=== PATIENT | female | born 1940 | race Caucasian/White ===

== ENCOUNTER 2017-04-22 16:40 | Emergency (ER) | payer MEDICARE, MEDICAID, OTHER ==
[2017-04-22 17:06] VITALS: BP 107/88
--- NOTE | 2017-04-22 17:13 | EDM.PDOC ---
ED HPI GENERAL MEDICAL PROBLEM - General Chief Complaint: General Stated Complaint: BLISTERS ON SHOULDER AND SLEEPING ALOT Time Seen by Provider: 04/22/17 17:13 - History of Present Illness INITIAL COMMENTS - FREE TEXT/NARRATIVE: 76-year-old female brought into the emergency room by her son just not doing too well. The patient fell out of bed this morning landing on her right shoulder. She's developed some redness around the shoulder and has a little bit of blistering in this area. The patient has had other problems this last week she just has not been herself she's been more lethargic over the last couple of days. Patient has advanced Alzheimer's lives at home with her son. The son states that the patient just isn't herself. She was seen in the clinic yesterday after developing a rash on her left shoulder this was thought to be due to her drooling more on the shoulder. Past medical history significant for dense Alzheimer's this is all she is taking medication for. Treatments NIGHT CUSTODIAN: Reports: Other (see below) Other Treatments NIGHT CUSTODIAN: seen by [facility] right shoulder Pain Score (Numeric/FACES): 3 - Related Data Allergies Allergy/AdvReac Type Severity Reaction Status Date / Time No Known Allergies Allergy Verified 04/22/17 17:06 Home Meds: Home Meds Ciprofloxacin [Ciprofloxacin HCl] 250 mg PO BID #14 tablet 04/22/17 [Rx] Memantine HCl/Donepezil HCl [Namzaric 28 mg-10 mg Capsule] 1 each PO DAILY 04/22 [History] risperiDONE [Risperdal] 0.5 mg PO 1800 04/22/17 [History] ED ROS GENERAL - Review of Systems Review Of Systems: See Below Constitutional: Denies: Fever, Chills HEENT: Reports: No Symptoms Respiratory: Reports: No Symptoms. Denies: Shortness of Breath, Cough, Sputum Cardiovascular: Reports: No Symptoms GI/Abdominal: Reports: No Symptoms : Reports: No Symptoms ED EXAM, GENERAL - Physical Exam Exam: See Below Exam Limited By: Other (Significant dementia) General Appearance: No Apparent Distress, Other (She does wake up during exam) Eye Exam: Bilateral Eye: EOMI, Normal Inspection Ears: Normal External Exam, Normal Canal, Normal TMs Nose: Normal Inspection, Normal Mucosa Throat/Mouth: Normal Inspection, Normal Lips, Normal Gums, Normal Oropharynx Head: Atraumatic, Normocephalic Neck: Normal Inspection, Supple, Non-Tender. No: Lymphadenopathy (L), Lymphadenopathy (R) Respiratory/Chest: No Respiratory Distress, Lungs Clear, Normal Breath Sounds Cardiovascular: Regular Rate, Rhythm, No Edema, No Murmur GI/Abdominal: Normal Bowel Sounds, Soft, Non-Tender Back Exam: Normal Inspection Extremities: Normal Inspection, No Pedal Edema Course - Vital Signs Last Recorded V/S: Last Vital Signs Temp 36.6 C 04/22/17 16:55 Pulse 84 04/22/17 16:55 Resp 18 04/22/17 16:55 BP 107/88 04/22/17 16:55 Pulse Ox 98 04/22/17 16:55 - Orders/Labs/Meds Orders: Active Orders 24 hr Category Date Time Status EKG Documentation Completion [RC] STAT Care 04/22/17 17:55 Active Chest 2V [CR] Stat Exams 04/22/17 17:56 Taken Head wo Cont [CT] Stat Exams 04/22/17 17:56 Taken CULTURE URINE [RM] Stat Lab 04/22/17 19:37 Uncollected Labs: Laboratory Tests 04/22/17 04/22/17 04/22/17 Range/Units 18:18 18:18 18:34 WBC 10.48 H (3.98-10.04) K/mm3 RBC 4.58 (3.98-5.22) M/mm3 Hgb 12.8 (11.2-15.7) gm/L Hct 39.5 (34.1-44.9) % MCV 86.2 (79.4-94.8) fl MCH 27.9 (25.6-32.2) pg MCHC 32.4 (32.2-35.5) g/dl RDW Std Deviation 44.1 (36.4-46.3) fL Plt Count 227 (182-369) K/mm3 MPV 10.5 (9.4-12.3) fl Neutrophils % (Manual) 78 H (40-60) % Band Neutrophils % 0 (0-10) % Lymphocytes % (Manual) 14 L (20-40) % Atypical Lymphs % 0 % Monocytes % (Manual) 7 (2-10) % Eosinophils % (Manual) 1 (0.7-5.8) % Basophils % (Manual) 0 L (0.1-1.2) Platelet Estimate Adequate RBC Morph Comment Normal Sodium 140 (136-145) mEq/L Potassium 4.6 (3.5-5.1) mEq/L Chloride 105 (98-107) mEq/L Carbon Dioxide 30 (21-32) mEq/L Anion Gap 9.6 (5-15) BUN 33 H (7-18) mg/dL Creatinine 1.2 H (0.55-1.02) mg/dL Est Cr Clr Drug Dosing 31.54 mL/min Estimated GFR (MDRD) 44 (>60) mL/min BUN/Creatinine Ratio 27.5 H (14-18) Glucose 107 (83-115) mg/dL Calcium 9.9 (8.5-10.1) mg/dL Total Bilirubin 0.4 (0.2-1.0) mg/dL AST 32 (15-37) U/L ALT 20 (14-59) U/L Alkaline Phosphatase 68 (46-116) U/L Total Protein 6.4 (6.4-8.2) g/dl Albumin 3.2 L (3.4-5.0) g/dl Globulin 3.2 gm/dL Albumin/Globulin Ratio 1.0 (1-2) Urine Color Yellow (Yellow) Urine Appearance Slt cloudy H (Clear) Urine pH 6.5 (5.0-8.0) Ur Specific [place] 1.020 (1.005-1.030) Urine Protein Negative (Negative) Urine Glucose (UA) Negative (Negative) Urine Ketones Negative (Negative) Urine Occult Blood 1+ H (Negative) Urine Nitrite Positive H (Negative) Urine Bilirubin Negative (Negative) Urine Urobilinogen 0.2 (0.2-1.0) Ur Leukocyte Esterase 2+ H (Negative) Urine RBC 5-10 H (0-5) /hpf Urine WBC 40-50 H (0-5) /hpf Ur Epithelial Cells 5-10 H (0-5) /hpf Urine Bacteria Many H (FEW) /hpf Urine Mucus Few (FEW) /hpf - Re-Assessments/Exams Free Text/Narrative Re-Assessment/Exam: 04/22/17 20:25 Labs nondiagnostic urinalysis is strongly suggestive of urinary tract infection chest x-ray shows some basilar densities do not appear to be infiltrates. Head CT shows no acute changes she has a 1.4 cm densely calcified lesion thought to be a small calcified meningioma this is been there for quite some time according to the patient's son who has pictures of this on his I pad. Long discussion with the patient's son who would rather treat this down an outpatient basis. This is a reasonable approach the patient will receive a gram of Rocephin at this point and then will start Cipro 250 mg twice daily adjusted with her renal insufficiency starting tomorrow night for 6 days. Her namzaric will be held while taking the Cipro Departure - Departure Time of Disposition: : Disposition: Home, Self-Care 01 Clinical Impression: Urinary tract infection - Discharge Information Prescriptions: Ciprofloxacin [Ciprofloxacin HCl] 250 mg PO BID #14 tablet Forms: ED Department Discharge Additional Instructions: Return to the emergency room with any questions problems worsening symptoms. Follow-up in the clinic on Monday or Monday for recheck. Patient has been started on ciprofloxacin this is an antibiotic take it twice daily until gone starting Monday evening. Stop the Namzaric while taking the Cipro. - My Orders Last 24 Hours: My Active Orders 04/22/17 17:55 EKG Documentation Completion [RC] STAT 04/22/17 17:56 Chest 2V [CR] Stat Head wo Cont [CT] Stat 04/22/17 19:37 CULTURE URINE [RM] Stat - Assessment/Plan Last 24 Hours: My Active Orders 04/22/17 17:55 EKG Documentation Completion [RC] STAT 04/22/17 17:56 Chest 2V [CR] Stat Head wo Cont [CT] Stat 04/22/17 19:37 CULTURE URINE [RM] Stat
[2017-04-22] MEDS ORDERED: cefTRIAXone 1,000 MG VIAL IVPUSH SCH (20:15)
[2017-04-22] MEDS ORDERED: cefTRIAXone 1 GM in Sodium Chloride 0.9% 100 ML IV ONE (20:18)
--- NOTE | 2017-04-24 08:15 | CT ---
Head CT Technique: Multiple axial sections through the brain were obtained. Intravenous contrast was not utilized. Comparison: No previous intracranial imaging is available. Findings: Ventricles along with basal cisterns and sulci over the convexities are moderately prominent. Well calcified area is seen in an extra-axial location within the right frontal region compatible with old calcified meningioma. Mild diminished density is noted within the periventricular white matter compatible with small vessel ischemic demyelination change. Old lacunar infarcts are seen within the basal ganglia. No other abnormal parenchymal densities are seen. No evidence of intracranial hemorrhage. No midline shift or mass effect is seen. Atherosclerotic calcification is seen within carotid siphon and vertebral vessels. No acute calvarial abnormality is seen. Impression: 1. Senescent change as described above. 2. Old calcified meningioma within the right frontal region which is incidental. 3. No acute intracranial abnormality is identified. Diagnostic code #2 I agree with preliminary report issued by [facility] ([facility] report finalized on 04/22/17, 8:25 PM Central Time)
--- NOTE | 2017-04-24 08:15 | CR ---
Chest: Two views of the chest were obtained. Comparison: No previous study. Heart size is normal. Tortuous thoracic aorta is seen. Lungs are clear without acute infiltrates. Bony structures show mild degenerative change within the mid and lower thoracic spine. Impression: 1. Nothing acute is identified on two-view chest x-ray. Diagnostic code #2
== END 2017-04-22 21:10 | disposition home or self-care (01) ==
LOC: JD.ED 16:40
DX: N39.0 Urinary tract infection, site not specified (principal); G30.9 Alzheimer's disease, unspecified; F02.80 Dementia in other diseases classified elsewhere, unspecified severity, without behavioral disturbance, psychotic disturbance, mood disturbance, and anxiety
CPT/HCPCS: 36415; 70450; 71020; 80053; 81001; 85025; 87086; 87088; 87186; 93005; 96365; 99284; J0696; J7030

== ENCOUNTER 2017-05-08 13:14 | Emergency (ER) | payer MEDICARE, OTHER, MEDICAID ==
[2017-05-08 13:30] VITALS: BP 137/82
[2017-05-08] MEDS ORDERED: Sodium Chloride 0.9% 10 ML Syringe FLUSH PRN (13:39)
[2017-05-08] MEDS ORDERED: Sodium Chloride 0.9% 1,000 ML IV SCH (13:45)
--- NOTE | 2017-05-08 14:38 | CT ---
Head CT Technique: Multiple axial sections through the brain were obtained. Intravenous contrast was not utilized. Comparison: Previous head CT study of 04/22/17. Findings: Calcified lesion is seen within the right frontal region likely representing old calcified meningioma. Ventricles along with basal cisterns and sulci over the convexities are moderately prominent. Mild diminished density is noted within the periventricular white matter compatible with small vessel ischemic demyelination change. Several old lacunar infarcts are noted within the basal ganglia. No other abnormal parenchymal densities are seen. No evidence of intracranial hemorrhage. No midline shift or mass effect is seen. Visualized paranasal sinuses are clear. Mild atherosclerotic change is seen within the carotid siphon. No acute calvarial abnormality is identified. Impression: 1. Senescent change as described above. 2. Old calcified meningioma which is incidental. 3. No acute intracranial abnormality is identified. No significant change is seen from prior head CT exam. Diagnostic code #2
--- NOTE | 2017-05-08 15:14 | CR ---
Chest: AP view of the chest was obtained. Comparison: Previous chest x-ray of 04/22/17. Heart size appears within normal limits for AP technique. Tortuous thoracic aorta is seen. Lungs are clear with no acute infiltrates. Bony structures are osteopenic. Scoliosis is seen most of which appears to be positional. Impression: 1. Incidental findings. Nothing acute is appreciated on AP chest x-ray. Diagnostic code #2
--- NOTE | 2017-05-08 16:50 | EDM.PDOC ---
ED HPI GENERAL MEDICAL PROBLEM - General Chief Complaint: Genitourinary Problem Stated Complaint: POSS UTI/ALSO RESPIRATORY ISSUES Time Seen by Provider: 05/08/17 13:26 Source of Information: Reports: Family History Limitations: Reports: Altered Mental Status - History of Present Illness INITIAL COMMENTS - FREE TEXT/NARRATIVE: The patient has end stage alzheimers and she is cared for by her son. He had her here about 2 weeks ago and she had a UTI. She was on an antibiotic and she got better. For the past few days she has been less responsive and she has a productive cough. She has a low grade temp. She has decreased intake. She does not talk much and when she does she is confused. She cannot give me a history. Onset: Gradual Duration: Day(s): Severity: Mild Improves with: Reports: None Worsens with: Reports: None Associated Symptoms: Reports: Cough, cough w sputum. Denies: Fever/Chills, Nausea/Vomiting, Shortness of Breath - Related Data Allergies Allergy/AdvReac Type Severity Reaction Status Date / Time No Known Allergies Allergy Verified 05/08/17 13:30 Home Meds: Home Meds Memantine HCl/Donepezil HCl [Namzaric 28 mg-10 mg Capsule] 1 each PO DAILY 04/22 [History] risperiDONE [Risperdal] 0.5 mg PO 1800 04/22/17 [History] Azithromycin [IJD: Azithromycin] 250 mg PO DAILY #6 tab 05/08/17 [Rx] Past Medical History HEENT History: Reports: Other (See Below) Other HEENT History: unable to eat solid foods, drooling Gastrointestinal History: Reports: Chronic Constipation, Fecal Incontinence Genitourinary History: Reports: Urinary Incontinence Musculoskeletal History: Reports: Other (See Below) Other Musculoskeletal History: unable to walk, is w/c dependent 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 Psychiatric History: Reports: Alzheimers Disease Oncologic (Cancer) History: Reports: Other (See Below) 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" Dermatologic History: Reports: Other (See Below) Other Dermatologic History: blisters to right shoulder, eczema type rash to left shoulder Social & Family History - Family History Family Medical History: Noncontributory - Tobacco Use Smoking Status *Q: Former Smoker Used Tobacco, but Quit: Yes Month Tobacco Last Used: years ago - Caffeine Use Caffeine Use: Reports: None - Recreational Drug Use Recreational Drug Use: No ED ROS GENERAL - Review of Systems Review Of Systems: Unable To Obtain ED EXAM, GI/ABD - Physical Exam Exam: See Below Exam Limited By: No Limitations General Appearance: Other (Sleepy) Eyes: Bilateral: EOMI Ears: Normal External Exam Nose: Normal Inspection Head: Atraumatic, Normocephalic Neck: Normal Inspection Respiratory/Chest: No Respiratory Distress, Lungs Clear, Normal Breath Sounds Cardiovascular: Regular Rate, Rhythm, No Edema, No Murmur GI/Abdominal Exam: Soft, Non-Tender, No Organomegaly, No Mass Back Exam: Normal Inspection Extremities: Normal Inspection Neurological: Other (Sleepy. She will talk at times but she makes no sense.) Course - Vital Signs Last Recorded V/S: Last Vital Signs Temp 98.7 F 05/08/17 13:26 Pulse 83 05/08/17 13:26 Resp 18 05/08/17 13:26 BP 137/82 05/08/17 13:26 Pulse Ox 93 L 05/08/17 13:26 - Orders/Labs/Meds Orders: Active Orders 24 hr Category Date Time Status Cardiac Monitoring [RC] . DIRECTED Care 05/08/17 13:39 Active Peripheral IV Care [RC] . DIRECTED Care 05/08/17 13:40 Active Sodium Chloride 0.9% [Normal Saline] 1,000 ml Med 05/08/17 13:45 Active IV ASDIRECTED Sodium Chloride 0.9% [Saline Flush] Med 05/08/17 13:39 Active 10 ml FLUSH ASDIRECTED PRN Peripheral IV Insertion Adult [OM.PC] Stat Oth 05/08/17 13:39 Ordered Medication Orders Sodium Chloride (Normal Saline) 1,000 mls @ 125 mls/hr IV ASDIRECTED RAMON Last Admin: 05/08/17 14:17 Dose: 125 mls/hr Sodium Chloride (Saline Flush) 10 ml FLUSH ASDIRECTED PRN PRN Reason: Keep Vein Open Last Admin: 05/08/17 14:19 Dose: 10 ml Labs: Laboratory Tests 05/08/17 05/08/17 05/08/17 Range/Units 13:55 14:24 14:24 WBC 9.81 (3.98-10.04) K/mm3 RBC 4.69 (3.98-5.22) M/mm3 Hgb 13.0 (11.2-15.7) gm/L Hct 40.7 (34.1-44.9) % MCV 86.8 (79.4-94.8) fl MCH 27.7 (25.6-32.2) pg MCHC 31.9 L (32.2-35.5) g/dl RDW Std Deviation 44.8 (36.4-46.3) fL Plt Count 267 (182-369) K/mm3 MPV 9.5 (9.4-12.3) fl Neut % (Auto) 77.5 H (34.0-71.1) % Lymph % (Auto) 11.5 L (19.3-51.7) % [place] % (Auto) 10.0 (4.7-12.5) % Eos % (Auto) 0.5 L (0.7-5.8) Baso % (Auto) 0.2 (0.1-1.2) % Neut # (Auto) 7.60 H (1.56-6.13) K/mm3 Lymph # (Auto) 1.13 L (1.18-3.74) K/mm3 [place] # (Auto) 0.98 H (0.24-0.36) K/mm3 Eos # (Auto) 0.05 (0.04-0.36) K/mm3 Baso # (Auto) 0.02 (0.01-0.08) K/mm3 Sodium 141 (136-145) mEq/L Potassium 4.8 (3.5-5.1) mEq/L Chloride 107 (98-107) mEq/L Carbon Dioxide 28 (21-32) mEq/L Anion Gap 10.8 (5-15) BUN 24 H (7-18) mg/dL Creatinine 1.2 H (0.55-1.02) mg/dL Est Cr Clr Drug Dosing TNP Estimated GFR (MDRD) 44 (>60) mL/min BUN/Creatinine Ratio 20.0 H (14-18) Glucose 106 (83-115) mg/dL Calcium 10.1 (8.5-10.1) mg/dL Total Bilirubin 0.4 (0.2-1.0) mg/dL AST 12 L (15-37) U/L ALT 14 (14-59) U/L Alkaline Phosphatase 66 (46-116) U/L Troponin I < 0.017 (0.00-0.056) ng/mL Total Protein 6.2 L (6.4-8.2) g/dl Albumin 3.2 L (3.4-5.0) g/dl Globulin 3.0 gm/dL Albumin/Globulin Ratio 1.1 (1-2) Urine Color Yellow (Yellow) Urine Appearance Clear (Clear) Urine pH 6.5 (5.0-8.0) Ur Specific [place] 1.020 (1.005-1.030) Urine Protein Negative (Negative) Urine Glucose (UA) Negative (Negative) Urine Ketones Negative (Negative) Urine Occult Blood Negative (Negative) Urine Nitrite Negative (Negative) Urine Bilirubin Negative (Negative) Urine Urobilinogen 0.2 (0.2-1.0) Ur Leukocyte Esterase Negative (Negative) Urine RBC Not seen (0-5) /hpf Urine WBC Not seen (0-5) /hpf Urine WBC Clumps Not seen (NOT SEEN) /hpf Ur Epithelial Cells 0-5 (0-5) /hpf Urine Bacteria Few (FEW) /hpf Urine Mucus Not seen (FEW) /hpf Urine Yeast Not seen (NOT SEEN) Meds: Medications Generic Name Dose Route Start Last Admin Trade Name Freq PRN Reason Stop Dose Admin Sodium Chloride 1,000 mls @ 125 mls/hr 05/08/17 13:45 05/08/17 14:17 Normal Saline IV 125 mls/hr ASDIRECTED RAMON Administration Sodium Chloride 10 ml 05/08/17 13:39 05/08/17 14:19 Saline Flush FLUSH 10 ml ASDIRECTED PRN Administration Keep Vein Open - Re-Assessments/Exams Free Text/Narrative Re-Assessment/Exam: 05/08/17 16:[address] of her head that shows senescent change, old calcified meningioma which is incidental and nothing acute. Her CXR looks good. 05/08/17 16:51 Her CBC looks good. Her creatinine is elevated at 1.2. Her troponin was negative. Her UA shows no UTI. She has a productive cough. I will get her on a z-abad. Departure - Departure Time of Disposition: 16:55 Disposition: Home, Self-Care 01 Condition: Good Clinical Impression: Bronchitis - Discharge Information Prescriptions: Azithromycin [IJD: Azithromycin] 250 mg PO DAILY #6 tab Referrals: Sosa Valerio, [facility] [Primary Care Provider] - 1 Week Forms: ED Department Discharge Additional Instructions: Take the zithromax daily for 5 days. Follow up with Sosa Valerio later this week or return here. - My Orders Last 24 Hours: My Active Orders 05/08/17 13:39 Cardiac Monitoring [RC] . DIRECTED Sodium Chloride 0.9% [Saline Flush] 10 ml FLUSH ASDIRECTED PRN Peripheral IV Insertion Adult [OM.PC] Stat 05/08/17 13:40 Peripheral IV Care [RC] . DIRECTED 05/08/17 13:45 Sodium Chloride 0.9% [Normal Saline] 1,000 ml IV ASDIRECTED - Assessment/Plan Last 24 Hours: My Active Orders 05/08/17 13:39 Cardiac Monitoring [RC] . DIRECTED Sodium Chloride 0.9% [Saline Flush] 10 ml FLUSH ASDIRECTED PRN Peripheral IV Insertion Adult [OM.PC] Stat 05/08/17 13:40 Peripheral IV Care [RC] . DIRECTED 05/08/17 13:45 Sodium Chloride 0.9% [Normal Saline] 1,000 ml IV ASDIRECTED
== END 2017-05-08 17:16 | disposition home or self-care (01) ==
LOC: JD.ED 13:14
DX: J40 Bronchitis, not specified as acute or chronic (principal); G30.9 Alzheimer's disease, unspecified; F02.80 Dementia in other diseases classified elsewhere, unspecified severity, without behavioral disturbance, psychotic disturbance, mood disturbance, and anxiety; Z79.899 Other long term (current) drug therapy; Z87.891 Personal history of nicotine dependence
CPT/HCPCS: 36415; 70450; 71010; 80053; 81001; 84484; 85025; 96360; 96361; 99284; J7040; J7050; P9612

== ENCOUNTER 2017-09-25 14:10 | Inpatient (IN) | payer MEDICARE, OTHER, MEDICAID ==
[2017-09-25] MEDS ORDERED: Sodium Chloride 0.9% 1,000 ML IV ONE (17:31)
[2017-09-25] MEDS ORDERED: Sodium Chloride 0.9% 10 ML Syringe FLUSH PRN (17:32)
[2017-09-25] MEDS ORDERED: Sodium Chloride 0.9% 10 ML Syringe FLUSH ONE (17:41)
[2017-09-25] MEDS ORDERED: Iopamidol 755 Mg/ML 100 ML Bottle IVPUSH ONE (17:41)
[2017-09-25] MEDS ORDERED: Sodium Chloride 0.9% 100 ML IV SCH (17:45)
--- NOTE | 2017-09-25 18:01 | EDM.PDOC ---
ED HPI GENERAL MEDICAL PROBLEM - General Chief Complaint: General Stated Complaint: POSS. BLADDER INFECTION Time Seen by Provider: 09/25/17 17:15 Source of Information: Reports: Family (son/child care supervisor) History Limitations: Reports: Altered Mental Status (dementia), Physical Impairment - History of Present Illness INITIAL COMMENTS - FREE TEXT/NARRATIVE: 76-year-old woman presents with her son for evaluation treatment of weakness and possible bladder infection. History is provided by the patient's son. She has severe dementia and is unable to provide any reliable history. Per the son she has been more weak than normal. He states that she is previously been able to stand on her own but today she required assistance of not only himself but another person as well ti help her stand. He states over the last 6 months she has significantly declined. He is also reporting that she has strong smelling urine. He has also appreciated thick white coating to her mouth and halitosis. He reports she has had swelling to the left lower leg. He states that she has had swelling to different extremities previously and was instructed by her primary care provider to elevate the extremities when she has swelling. He states that he elevated the leg and massaged it. The swelling then seemed to improve. He states that she has not had any fevers but elevated times around 99. No vomiting. She does have a wet sounding cough. Last bowel movement was today, was a small bowel movement. She is not any blood thinners. No ill contacts. She did have a pneumonia shot recently and a flu vaccine this season. - Related Data Allergies Allergy/AdvReac Type Severity Reaction Status Date / Time No Known Allergies Allergy Verified 09/25/17 16:29 Home Meds: Home Meds Memantine HCl/Donepezil HCl [Namzaric 28 mg-10 mg Capsule] 1 each PO DAILY 04/22 [History] risperiDONE [Risperdal] 0.5 mg PO 1800 04/22/17 [History] Past Medical History HEENT History: Reports: Other (See Below) Other HEENT History: unable to eat solid foods, drooling Gastrointestinal History: Reports: Chronic Constipation, Fecal Incontinence Genitourinary History: Reports: Urinary Incontinence Musculoskeletal History: Reports: Other (See Below) Other Musculoskeletal History: unable to walk, is w/c dependent 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 Psychiatric History: Reports: Alzheimers Disease Oncologic (Cancer) History: Reports: Other (See Below) 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 Denies: Fever (elevated temps, 99) HEENT: Reports: Other (hallatosis; white coating no the tongue) Respiratory: Reports: Cough GI/Abdominal: Denies: Diarrhea, Vomiting Musculoskeletal: Reports: Other (left leg swelling) ED EXAM, GENERAL - Physical Exam Exam: See Below Exam Limited By: Physical Impairment General Appearance: Alert, WD/WN, No Apparent Distress, Other (chronically ill appearing) Nose: Normal Inspection Throat/Mouth: Normal Inspection, Other (thrush present on the tongue) Respiratory/Chest: Decreased Breath Sounds, Other (tachypnia) Cardiovascular: No Murmur, Tachycardia GI/Abdominal: Soft, Non-Tender Extremities: Other (swelling and slight erythema to the left leg) Neurological: Alert, Confused Skin Exam: Warm, Dry, Normal Color EKG INTERPRETATION EKG Date: 09/25/17 Time: 17:50 Rate (Beats/Min): 115 Howard: Normal P-Wave: Present QRS: Normal ST-T: Normal QT: Normal EKG Interpretation Comments: Sinus tachycardia at 115 bpm. Early "r" wave transition. Q wves III, AvF and II - possibly old inferior wall TN.Decreased voltage limb leads. T wave flattening I and AVL. - Reviewed by myself and Dr. Rizvi. Course - Vital Signs Last Recorded V/S: Last Vital Signs Temp 36.8 C 09/25/17 16:25 Pulse 123 H 09/25/17 16:25 Resp 18 09/25/17 16:25 BP 123/61 09/25/17 16:25 Pulse Ox 90 L 09/25/17 16:25 - Orders/Labs/Meds Orders: Active Orders 24 hr Category Date Time Status Admission Status [Patient Status] [ADT] Routine ADT 09/25/17 21:07 Active Cardiac Monitoring [RC] . DIRECTED Care 09/25/17 17:32 Active EKG Documentation Completion [RC] ASDIRECTED Care 09/25/17 17:32 Active Insert Urinary Catheter [OM.PC] Q24H Care 09/25/17 17:15 Ordered Oxygen Therapy, ED [RC] ASDIRECTED Care 09/25/17 17:59 Active Peripheral IV Care [RC] . DIRECTED Care 09/25/17 17:32 Active Urinary Catheter Assessment [RC] ASDIRECTED Care 09/25/17 17:07 Active CULTURE BLOOD [BC] Stat Lab 09/25/17 18:16 Received CULTURE BLOOD [BC] Stat Lab 09/25/17 18:52 Received CULTURE URINE [RM] Stat Lab 09/25/17 17:00 Received Sodium Chloride 0.9% [Normal Saline] 1,000 ml Med 09/25/17 17:31 Active IV ONETIME Sodium Chloride 0.9% [Normal Saline] 100 ml Med 09/25/17 17:45 Active IV ASDIRECTED Sodium Chloride 0.9% [Saline Flush] Med 09/25/17 17:32 Active 10 ml FLUSH ASDIRECTED PRN Blood Culture x2 Reflex Set [OM.PC] Stat Oth 09/25/17 17:32 Ordered Peripheral IV Insertion Adult [OM.PC] Routine Oth 09/25/17 17:31 Ordered EKG 12 Lead [EK] Stat Ther 09/25/17 17:32 Ordered Medication Orders Sodium Chloride (Normal Saline) 1,000 mls @ 100 mls/hr IV ONETIME ONE Stop: 09/26/17 03:30 Last Admin: 09/25/17 19:03 Dose: 100 mls/hr Sodium Chloride (Normal Saline) 100 mls @ 60 mls/hr IV ASDIRECTED RAMON Last Admin: 09/25/17 18:37 Dose: 60 mls/hr Sodium Chloride (Saline Flush) 10 ml FLUSH ASDIRECTED PRN PRN Reason: Keep Vein Open Last Admin: 09/25/17 19:04 Dose: 10 ml Labs: Laboratory Tests 09/25/17 09/25/17 09/25/17 Range/Units 17:00 17:50 17:50 WBC 16.04 H (3.98-10.04) K/mm3 RBC 4.77 (3.98-5.22) M/mm3 Hgb 12.9 (11.2-15.7) gm/L Hct 42.1 (34.1-44.9) % MCV 88.3 (79.4-94.8) fl MCH 27.0 (25.6-32.2) pg MCHC 30.6 L (32.2-35.5) g/dl RDW Std Deviation 50.2 H (36.4-46.3) fL Plt Count 210 (182-369) K/mm3 MPV 11.3 (9.4-12.3) fl Neutrophils % (Manual) 83 H (40-60) % Band Neutrophils % 0 (0-10) % Lymphocytes % (Manual) 9 L (20-40) % Atypical Lymphs % 0 % Monocytes % (Manual) 8 (2-10) % Eosinophils % (Manual) 0 L (0.7-5.8) % Basophils % (Manual) 0 L (0.1-1.2) Platelet Estimate Adequate Plt Morphology Comment Normal RBC Morph Comment Normal PT (8.0-13.0) SECONDS INR APTT (22-36) SECONDS D-Dimer, Quantitative (0.19-0.59) mg/L Sodium 151 H (136-145) mEq/L Potassium 4.6 (3.5-5.1) mEq/L Chloride 113 H (98-107) mEq/L Carbon Dioxide 27 (21-32) mEq/L Anion Gap 15.6 H (5-15) BUN 55 H (7-18) mg/dL Creatinine 1.7 H (0.55-1.02) mg/dL Est Cr Clr Drug Dosing TNP Estimated GFR (MDRD) 29 (>60) mL/min BUN/Creatinine Ratio 32.4 H (14-18) Glucose 145 H (83-115) mg/dL Lactic Acid (0.4-2.0) mmol/L Calcium 10.0 (8.5-10.1) mg/dL Magnesium (1.8-2.4) mg/dl Total Bilirubin 0.5 (0.2-1.0) mg/dL AST 20 (15-37) U/L ALT 20 (14-59) U/L Alkaline Phosphatase 80 (46-116) U/L Troponin I < 0.017 (0.00-0.056) ng/mL C-Reactive Protein 16.3 H* (<1.0) mg/dL NT-Pro-B Natriuret Pep 544 H (0-450) pg/mL Total Protein 7.0 (6.4-8.2) g/dl Albumin 2.6 L (3.4-5.0) g/dl Globulin 4.4 gm/dL Albumin/Globulin Ratio 0.6 L (1-2) Urine Color Yellow (Yellow) Urine Appearance Clear (Clear) Urine pH 5.5 (5.0-8.0) Ur Specific [place] 1.025 (1.005-1.030) Urine Protein 1+ H (Negative) Urine Glucose (UA) Negative (Negative) Urine Ketones Negative (Negative) Urine Occult Blood Trace-lysed H (Negative) Urine Nitrite Negative (Negative) Urine Bilirubin Negative (Negative) Urine Urobilinogen 0.2 (0.2-1.0) Ur Leukocyte Esterase Negative (Negative) Urine RBC 0-5 (0-5) /hpf Urine WBC 0-5 (0-5) /hpf Ur Epithelial Cells 0-5 (0-5) /hpf Urine Bacteria Many H (FEW) /hpf Fine Granular Casts 0-5 (0-5) /lpf WBC Casts 0-5 (0-5) /lpf Urine Mucus Few (FEW) /hpf 09/25/17 09/25/17 09/25/17 Range/Units 17:50 17:50 18:44 WBC (3.98-10.04) K/mm3 RBC (3.98-5.22) M/mm3 Hgb (11.2-15.7) gm/L Hct (34.1-44.9) % MCV (79.4-94.8) fl MCH (25.6-32.2) pg MCHC (32.2-35.5) g/dl RDW Std Deviation (36.4-46.3) fL Plt Count (182-369) K/mm3 MPV (9.4-12.3) fl Neutrophils % (Manual) (40-60) % Band Neutrophils % (0-10) % Lymphocytes % (Manual) (20-40) % Atypical Lymphs % % Monocytes % (Manual) (2-10) % Eosinophils % (Manual) (0.7-5.8) % Basophils % (Manual) (0.1-1.2) Platelet Estimate Plt Morphology Comment RBC Morph Comment PT 9.4 (8.0-13.0) SECONDS INR 0.87 APTT 24 (22-36) SECONDS D-Dimer, Quantitative 8.75 H (0.19-0.59) mg/L Sodium (136-145) mEq/L Potassium (3.5-5.1) mEq/L Chloride (98-107) mEq/L Carbon Dioxide (21-32) mEq/L Anion Gap (5-15) BUN (7-18) mg/dL Creatinine (0.55-1.02) mg/dL Est Cr Clr Drug Dosing Estimated GFR (MDRD) (>60) mL/min BUN/Creatinine Ratio (14-18) Glucose (83-115) mg/dL Lactic Acid (0.4-2.0) mmol/L Calcium (8.5-10.1) mg/dL Magnesium 3.0 H (1.8-2.4) mg/dl Total Bilirubin (0.2-1.0) mg/dL AST (15-37) U/L ALT (14-59) U/L Alkaline Phosphatase (46-116) U/L Troponin I (0.00-0.056) ng/mL C-Reactive Protein (<1.0) mg/dL NT-Pro-B Natriuret Pep (0-450) pg/mL Total Protein (6.4-8.2) g/dl Albumin (3.4-5.0) g/dl Globulin gm/dL Albumin/Globulin Ratio (1-2) Urine Color (Yellow) Urine Appearance (Clear) Urine pH (5.0-8.0) Ur Specific [place] (1.005-1.030) Urine Protein (Negative) Urine Glucose (UA) (Negative) Urine Ketones (Negative) Urine Occult Blood (Negative) Urine Nitrite (Negative) Urine Bilirubin (Negative) Urine Urobilinogen (0.2-1.0) Ur Leukocyte Esterase (Negative) Urine RBC (0-5) /hpf Urine WBC (0-5) /hpf Ur Epithelial Cells (0-5) /hpf Urine Bacteria (FEW) /hpf Fine Granular Casts (0-5) /lpf WBC Casts (0-5) /lpf Urine Mucus (FEW) /hpf 09/25/17 Range/Units 18:52 WBC (3.98-10.04) K/mm3 RBC (3.98-5.22) M/mm3 Hgb (11.2-15.7) gm/L Hct (34.1-44.9) % MCV (79.4-94.8) fl MCH (25.6-32.2) pg MCHC (32.2-35.5) g/dl RDW Std Deviation (36.4-46.3) fL Plt Count (182-369) K/mm3 MPV (9.4-12.3) fl Neutrophils % (Manual) (40-60) % Band Neutrophils % (0-10) % Lymphocytes % (Manual) (20-40) % Atypical Lymphs % % Monocytes % (Manual) (2-10) % Eosinophils % (Manual) (0.7-5.8) % Basophils % (Manual) (0.1-1.2) Platelet Estimate Plt Morphology Comment RBC Morph Comment PT (8.0-13.0) SECONDS INR APTT (22-36) SECONDS D-Dimer, Quantitative (0.19-0.59) mg/L Sodium (136-145) mEq/L Potassium (3.5-5.1) mEq/L Chloride (98-107) mEq/L Carbon Dioxide (21-32) mEq/L Anion Gap (5-15) BUN (7-18) mg/dL Creatinine (0.55-1.02) mg/dL Est Cr Clr Drug Dosing Estimated GFR (MDRD) (>60) mL/min BUN/Creatinine Ratio (14-18) Glucose (83-115) mg/dL Lactic Acid 2.5 H (0.4-2.0) mmol/L Calcium (8.5-10.1) mg/dL Magnesium (1.8-2.4) mg/dl Total Bilirubin (0.2-1.0) mg/dL AST (15-37) U/L ALT (14-59) U/L Alkaline Phosphatase (46-116) U/L Troponin I (0.00-0.056) ng/mL C-Reactive Protein (<1.0) mg/dL NT-Pro-B Natriuret Pep (0-450) pg/mL Total Protein (6.4-8.2) g/dl Albumin (3.4-5.0) g/dl Globulin gm/dL Albumin/Globulin Ratio (1-2) Urine Color (Yellow) Urine Appearance (Clear) Urine pH (5.0-8.0) Ur Specific [place] (1.005-1.030) Urine Protein (Negative) Urine Glucose (UA) (Negative) Urine Ketones (Negative) Urine Occult Blood (Negative) Urine Nitrite (Negative) Urine Bilirubin (Negative) Urine Urobilinogen (0.2-1.0) Ur Leukocyte Esterase (Negative) Urine RBC (0-5) /hpf Urine WBC (0-5) /hpf Ur Epithelial Cells (0-5) /hpf Urine Bacteria (FEW) /hpf Fine Granular Casts (0-5) /lpf WBC Casts (0-5) /lpf Urine Mucus (FEW) /hpf Meds: Medications Generic Name Dose Route Start Last Admin Trade Name Freq PRN Reason Stop Dose Admin Sodium Chloride 1,000 mls @ 100 mls/hr 09/25/17 17:31 09/25/17 19:03 Normal Saline IV 09/26/17 03:30 100 mls/hr ONETIME ONE Administration Sodium Chloride 100 mls @ 60 mls/hr 09/25/17 17:45 09/25/17 18:37 Normal Saline IV 60 mls/hr ASDIRECTED RAMON Administration Sodium Chloride 10 ml 09/25/17 17:32 09/25/17 19:04 Saline Flush FLUSH 10 ml ASDIRECTED PRN Administration Keep Vein Open Discontinued Medications Generic Name Dose Route Start Last Admin Trade Name Freq PRN Reason Stop Dose Admin Levofloxacin/Dextrose 500 mg/ 100 mls @ 100 mls/hr 09/25/17 19:35 09/25/17 20 :34 Premix IV 09/25/17 20:34 Not Given ONETIME ONE Ceftriaxone Sodium 2 gm/ 100 mls @ 200 mls/hr 09/25/17 19:44 09/25/17 19:51 Sodium Chloride IV 09/25/17 20:13 200 mls/hr ONETIME ONE Administration Iopamidol 100 ml 09/25/17 17:41 09/25/17 18:37 Isovue-370 (76%) IVPUSH 09/25/17 17:42 100 ml ONETIME ONE Administration Sodium Chloride 10 ml 09/25/17 17:41 09/25/17 18:37 Saline Flush FLUSH 09/25/17 17:42 10 ml ONETIME ONE Administration - Radiology Interpretation Free Text/Narrative:: CT chest Technique: Multiple axial sections were obtained through the chest. Intravenous contrast was utilized. Study has been performed as a pulmonary angiogram protocol. Comparison: No prior chest CT, previous chest x-ray of 05/08/17 is available. Findings: Filling defects are identified within the right lower lobe segmental and subsegmental branches compatible with pulmonary emboli. No other filling defects are seen. Mediastinum and hilar regions are within normal limits. Moderately large hiatal hernia is seen. Slight atelectasis or scarring is seen within the left lung base. Lungs otherwise are clear. Incidental note of azygos lobe within the upper right lung. Bone window settings were reviewed showing scattered degenerative spurring within the spine. Impression: 1. Right lower lobe pulmonary emboli. 2. Other incidental findings. - Re-Assessments/Exams Free Text/Narrative Re-Assessment/Exam: 09/25/17 21:53 I reviewed her labs, CT and EKG results with her son. She does have pulmonary emboli. We discussed treatment for this. He was educated on different anticoagulation options. Ultimately decided to proceed with Coumadin and Lovenox. We do not have a current weight on her. He states that due to her inactivity she has been losing weight and he is unsure of her exact weight. As soon as we know a weight on her we will give her some Lovenox. I do feel that she should be admitted to the hospital for treatment of the pulmonary emboli as well as her other comorbid conditions. Her white blood cell count is elevated. This could be from her pulmonary emboli, however, it is possible that she is also ill with infection. I will give her some Rocephin in the meantime. Blood cultures are pending. Her son and I discussed her CODE STATUS. He reports that he and his brother are her power of practice support specialist. She does not have a living will. I encouraged them to discuss her CODE STATUS given her decline within the past 6 months I encouraged him to consider making her a DNR, DNI. He states that he will discuss this further with his brother. Discussed case with Dr. Barraza. She has seen the patient in the ER and agrees to the admission. Departure - Departure Time of Disposition: 22:00 Disposition: Admitted As Inpatient 66 Condition: Serious Clinical Impression: Pulmonary emboli, Oral thrush, Hypernatremia - Discharge Information - My Orders Last 24 Hours: My Active Orders 09/25/17 17:00 CULTURE URINE [RM] Stat 09/25/17 17:07 Urinary Catheter Assessment [RC] ASDIRECTED 09/25/17 17:15 Insert Urinary Catheter [OM.PC] Q24H 09/25/17 17:31 Sodium Chloride 0.9% [Normal Saline] 1,000 ml IV ONETIME Peripheral IV Insertion Adult [OM.PC] Routine 09/25/17 17:32 Cardiac Monitoring [RC] . DIRECTED EKG Documentation Completion [RC] ASDIRECTED Peripheral IV Care [RC] . DIRECTED Sodium Chloride 0.9% [Saline Flush] 10 ml FLUSH ASDIRECTED PRN Blood Culture x2 Reflex Set [OM.PC] Stat EKG 12 Lead [EK] Stat 09/25/17 17:45 Sodium Chloride 0.9% [Normal Saline] 100 ml IV ASDIRECTED 09/25/17 17:59 Oxygen Therapy, ED [RC] ASDIRECTED 09/25/17 18:16 CULTURE BLOOD [BC] Stat 09/25/17 18:52 CULTURE BLOOD [BC] Stat 09/25/17 21:07 Admission Status [Patient Status] [ADT] Routine - Assessment/Plan Last 24 Hours: My Active Orders 09/25/17 17:00 CULTURE URINE [RM] Stat 09/25/17 17:07 Urinary Catheter Assessment [RC] ASDIRECTED 09/25/17 17:15 Insert Urinary Catheter [OM.PC] Q24H 09/25/17 17:31 Sodium Chloride 0.9% [Normal Saline] 1,000 ml IV ONETIME Peripheral IV Insertion Adult [OM.PC] Routine 09/25/17 17:32 Cardiac Monitoring [RC] . DIRECTED EKG Documentation Completion [RC] ASDIRECTED Peripheral IV Care [RC] . DIRECTED Sodium Chloride 0.9% [Saline Flush] 10 ml FLUSH ASDIRECTED PRN Blood Culture x2 Reflex Set [OM.PC] Stat EKG 12 Lead [EK] Stat 09/25/17 17:45 Sodium Chloride 0.9% [Normal Saline] 100 ml IV ASDIRECTED 09/25/17 17:59 Oxygen Therapy, ED [RC] ASDIRECTED 09/25/17 18:16 CULTURE BLOOD [BC] Stat 09/25/17 18:52 CULTURE BLOOD [BC] Stat 09/25/17 21:07 Admission Status [Patient Status] [ADT] Routine
--- NOTE | 2017-09-25 19:02 | CT ---
CT chest Technique: Multiple axial sections were obtained through the chest. Intravenous contrast was utilized. Study has been performed as a pulmonary angiogram protocol. Comparison: No prior chest CT, previous chest x-ray of 05/08/17 is available. Findings: Filling defects are identified within the right lower lobe segmental and subsegmental branches compatible with pulmonary emboli. No other filling defects are seen. Mediastinum and hilar regions are within normal limits. Moderately large hiatal hernia is seen. Slight atelectasis or scarring is seen within the left lung base. Lungs otherwise are clear. Incidental note of azygos lobe within the upper right lung. Bone window settings were reviewed showing scattered degenerative spurring within the spine. Impression: 1. Right lower lobe pulmonary emboli. 2. Other incidental findings. Diagnostic code #5
[2017-09-25] MEDS ORDERED: Levofloxacin/Dextrose 5%-Water 500 MG in Premix Bag 1 BAG IV ONE (19:35)
[2017-09-25] MEDS ORDERED: cefTRIAXone 2 GM in Sodium Chloride 0.9% 100 ML IV ONE (19:44)
[2017-09-25] MEDS ORDERED: Temazepam 7.5 MG Cap PO PRN (23:06)
[2017-09-25] MEDS ORDERED: Enoxaparin 60 MG/0.6 ML Syringe SUBCUT SCH (23:15)
[2017-09-26] MEDS: Sodium Chloride 0.9% 1,000 ML IV SCH ×2 (00:12→18:05)
[2017-09-26] MEDS ORDERED: Enoxaparin 60 MG/0.6 ML Syringe SUBCUT SCH (09:00)
[2017-09-26] MEDS: Diphenhydramine/Lidocaine/MagAl/Simethicone 119 ML Bottle PO PRN (15:14)
--- NOTE | 2017-09-26 16:26 | PCM.HP ---
H&P History of Present Illness - General Date of Service: 09/25/17 Source of Information: Family, Provider History Limitations: Reports: No Limitations - History of Present Illness Initial Comments - Free Text/Narative: 76 year old female with PMH of Alzheimers dementia presents with acute on chronic change. Recently has had stronger smelling urine, and was brought for possible UTI. Patient has been found to have an elevated D dimer, a CTA of the thorax documented bilateral PEs. She will be started on lovenox until the final decision has been made for anticoagulation. A Venous doppler will be scheduled of the LLE. Onset of Symptoms: Reports: Unknown/Unsure Duration of Symptoms: Reports: Day(s):, Getting Worse Location: Reports: Abdomen, Generalized Severity: Moderate Improves with: Reports: Medication Worsens with: Reports: None Associated Symptoms: Reports: Confusion, Weakness - Related Data Allergies/Adverse Reactions: Allergies Allergy/AdvReac Type Severity Reaction Status Date / Time No Known Allergies Allergy Verified 09/26/17 01:18 Home Medications: Home Meds Memantine HCl/Donepezil HCl [Namzaric 28 mg-10 mg Capsule] 1 each PO DAILY 04/22 [History] risperiDONE [Risperdal] 0.5 mg PO 1800 04/22/17 [History] Past Medical History HEENT History: Reports: Other (See Below) Other HEENT History: unable to eat solid foods, drooling Gastrointestinal History: Reports: Chronic Constipation, Fecal Incontinence Genitourinary History: Reports: Urinary Incontinence Musculoskeletal History: Reports: Other (See Below) Other Musculoskeletal History: unable to walk, is w/c dependent 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 Psychiatric History: Reports: Alzheimers Disease Oncologic (Cancer) History: Reports: Other (See Below) 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" Dermatologic History: Reports: Other (See Below) Other Dermatologic History: blisters to right shoulder, eczema type rash to left shoulder - Infectious Disease History Infectious Disease History: Reports: Influenza, Other (See Below) Other Infectious Disease History: unable to obtain - Past Surgical History Head Surgeries/Procedures: Reports: None HEENT Surgical History: Reports: None Respiratory Surgical History: Reports: None GI Surgical History: Reports: None Female Surgical History: Reports: None Neurological Surgical History: Reports: None Musculoskeletal Surgical History: Reports: None Oncologic Surgical History: Reports: None Dermatological Surgical History: Reports: None Social & Family History - Family History Family Medical History: Noncontributory - Tobacco Use Smoking Status *Q: Former Smoker Years of Tobacco use: 30 Packs/Tins Daily: 2 Used Tobacco, but Quit: Yes Month Tobacco Last Used: 20 years ago Second Hand Smoke Exposure: No - Caffeine Use Caffeine Use: Reports: None - Recreational Drug Use Recreational Drug Use: No H&P Review of Systems - Review of Systems: Review Of Systems: See Below General: Reports: Malaise, Weakness HEENT: Reports: No Symptoms Pulmonary: Reports: No Symptoms Cardiovascular: Reports: No Symptoms Gastrointestinal: Reports: Decreased Appetite Genitourinary: Reports: No Symptoms Musculoskeletal: Reports: Leg Pain (swelling, asymmetrical) Skin: Reports: No Symptoms Psychiatric: Reports: Confusion Neurological: Reports: No Symptoms Hematologic/Lymphatic: Reports: No Symptoms Immunologic: Reports: No Symptoms Exam - Exam Exam: See Below - Vital Signs Vital Signs: Last Vital Signs Temp 36.3 C 09/26/17 12:10 Pulse 92 09/26/17 12:10 Resp 15 09/26/17 12:10 BP 126/77 09/26/17 12:10 Pulse Ox 94 L 09/26/17 12:10 Weight: 58.468 kg - Exam Quality Assessment: Supplemental Oxygen, DVT Prophylaxis General: Lethargic HEENT: Conjunctiva Clear, Pupils Equal, Pupils Reactive, PERRLA Neck: Trachea Midline Lungs: Normal Respiratory Effort, Decreased Breath Sounds Cardiovascular: Regular Rate GI/Abdominal Exam: Normal Bowel Sounds, Soft, Non-Tender, No Organomegaly, No Distention (Female) Exam: Deferred Rectal (Female) Exam: Deferred Back Exam: Normal Inspection Extremities: Pedal Edema, Other (L>R, edema) Skin: Warm Neurological: Cranial Nerves Intact, Normal Speech Neuro Extensive - Mental Status: Disorientation to Place, Disorientation to Time Neuro Extensive - Motor, Sensory, Reflexes: CN II-XII Intact Psychiatric: Other (lethargic) - Patient Data Lab Results Last 24 hrs: Laboratory Results - last 24 hr 09/26/17 09/26/17 Range/Units 05:24 05:43 WBC 11.47 H (3.98-10.04) K/mm3 RBC 4.26 (3.98-5.22) M/mm3 Hgb 11.5 (11.2-15.7) gm/L Hct 37.8 (34.1-44.9) % MCV 88.7 (79.4-94.8) fl MCH 27.0 (25.6-32.2) pg MCHC 30.4 L (32.2-35.5) g/dl RDW Std Deviation 50.0 H (36.4-46.3) fL Plt Count 188 (182-369) K/mm3 MPV 11.8 (9.4-12.3) fl Neut % (Auto) 79.8 H (34.0-71.1) % Lymph % (Auto) 9.9 L (19.3-51.7) % [place] % (Auto) 9.5 (4.7-12.5) % Eos % (Auto) 0.2 L (0.7-5.8) Baso % (Auto) 0.2 (0.1-1.2) % Neut # (Auto) 9.15 H (1.56-6.13) K/mm3 Lymph # (Auto) 1.14 L (1.18-3.74) K/mm3 [place] # (Auto) 1.09 H (0.24-0.36) K/mm3 Eos # (Auto) 0.02 L (0.04-0.36) K/mm3 Baso # (Auto) 0.02 (0.01-0.08) K/mm3 Manual Slide Review Abnormal smear Sodium 156 H (136-145) mEq/L Potassium 3.7 (3.5-5.1) mEq/L Chloride 118 H (98-107) mEq/L Carbon Dioxide 27 (21-32) mEq/L Anion Gap 14.7 (5-15) BUN 47 H (7-18) mg/dL Creatinine 1.1 H (0.55-1.02) mg/dL Est Cr Clr Drug Dosing 34.41 mL/min Estimated GFR (MDRD) 48 (>60) mL/min BUN/Creatinine Ratio 42.7 H (14-18) Glucose 126 H (83-115) mg/dL Calcium 9.2 (8.5-10.1) mg/dL Magnesium 2.6 H (1.8-2.4) mg/dl C-Reactive Protein 11.7 H* (<1.0) mg/dL Result Diagrams: 09/27/17 05:45 09/27/17 05:45 *Q Meaningful Use (ADM) - VTE *Q VTE Criteria *Q: - Stroke *Q Stroke Criteria *Q: - AMI *Q AMI Criteria *Q: Problem List Initiated/Reviewed/Updated: Yes Orders Last 24hrs: Active Orders 24 hr Category Date Time Status Antiembolic Devices [RC] PER UNIT ROUTINE Care 09/25/17 23:07 Active Oxygen Therapy [RC] ASDIRECTED Care 09/25/17 23:07 Active Vital Signs [RC] Q4H Care 09/26/17 04:00 Active Consult to Dietary [Consult to Breakdown Worker] [CONS] Cons 09/26/17 13:34 Active Routine PT Evaluation and Treatment [CONS] Routine Cons 09/26/17 08:00 Active Clear Liquid Diet [DIET] Diet 09/26/17 Breakfast Active Venous Doppler Lwr Ext Bi [US] Routine Exams 09/26/17 14:40 Ordered Diphenhyd/Lidocaine/MagAl/Shane [First-Mouthwash BLM Med 09/26/17 14:45 Active Susp] 30 ml PO ASDIRECTED PRN Enoxaparin [Lovenox] Med 09/26/17 09:00 Hold 60 mg SUBCUT BID Sodium Chloride 0.9% [Normal Saline] 1,000 ml Med 09/25/17 23:15 Active IV ASDIRECTED Temazepam [Restoril] Med 09/25/17 23:06 Active 7.5 mg PO BEDTIME PRN cefTRIAXone [Rocephin] 1 gm Med 09/26/17 20:00 Active Sodium Chloride 0.9% [Normal Saline] 100 ml IV Q24H CM Social Work Follow Up [CM] Routine Oth 09/25/17 23:12 Active AYLA Hose [Antiembolic Hose] [OM.PC] Routine Oth 09/25/17 23:07 Ordered Code Status [Resuscitation Status] Routine Resus Stat 09/26/17 00:46 Ordered Medication Orders Diphenhydr/Magaldrate/Simeth/Lidoca (First-Mouthwash Blm Susp) 30 ml PO ASDIRECTED PRN PRN Reason: Other Last Admin: 09/26/17 15:14 Dose: 30 ml Enoxaparin Sodium (Lovenox) 60 mg SUBCUT BID RAMON Sodium Chloride (Normal Saline) 1,000 mls @ 75 mls/hr IV ASDIRECTED RAMON Last Admin: 09/26/17 00:12 Dose: 75 mls/hr Ceftriaxone Sodium 1 gm/ (Sodium Chloride) 100 mls @ 200 mls/hr IV Q24H RAMON Sodium Chloride (Saline Flush) 10 ml FLUSH ASDIRECTED PRN PRN Reason: Keep Vein Open Last Admin: 09/25/17 19:04 Dose: 10 ml Temazepam (Restoril) 7.5 mg PO BEDTIME PRN PRN Reason: Sleep Assessment/Plan Comment:: Impression: AMS, baseline Alzheimers dementia Elevated D dimer with bilateral PEs DVT-->TBD Hypernatremia Plan: IVF, correct sodium Aspiration precautions Lovenox/coumadin; confirm cf NOAC Check TSH IVF Home meds Daily labs PT/OT consult SW consult for SNF Dietary consult for caloric needs GI prophylaxis
--- NOTE | 2017-09-26 16:44 | US ---
Bilateral lower extremity deep venous ultrasound: Duplex and color flow imaging was obtained of the right and left common femoral, proximal greater saphenous, superficial femoral, popliteal, posterior tibial and peroneal veins. Comparison: No prior venous ultrasound. Findings: Lack of compression, phasic flow and augmentation is seen within left common femoral, superficial femoral and popliteal veins. Partial occluding clot is noted within the left posterior tibial and peroneal veins. Right lower extremity veins show normal phasic flow, augmentation and compression. Impression: 1. Diffuse deep venous thrombosis within the left lower extremity as described above. Diagnostic code #5
--- NOTE | 2017-09-26 16:58 | PCM.PN ---
- General Info Date of Service: 09/26/17 Admission Dx/Problem (Free Text): PE, Oral thrush, Hypernatremia Subjective Update: In to see Angie today. She is lying in bed. She is very demented. I attempted to question the patient unsuccessfully. Her son is at bedside. I explained to him that the lower extremity ultrasound did show a left leg DVT. This is in addition to her PE. She had been given lovenox and we are planning on switching her to Eliquis tomorrow. Otherwise she appears to be doing well. He has been assisting her in eating. She is essentially eating a liquid only diet, even at home. A dietary consult was ordered today. Her son has reportedly been taking care of her. CM is consulted for discharge - home health vs. SNF. Functional Status: Reports: Tolerating Diet, Urinating. Denies: Ambulating (PT unable to evaluate patient. ), New Symptoms - Review of Systems General: Reports: Weakness, Fatigue, Malaise HEENT: Reports: No Symptoms Pulmonary: Reports: No Symptoms Cardiovascular: Reports: No Symptoms Gastrointestinal: Reports: No Symptoms Genitourinary: Reports: No Symptoms Musculoskeletal: Reports: Other (left leg is swollen ) Skin: Reports: No Symptoms Neurological: Reports: No Symptoms Psychiatric: Reports: No Symptoms Systems Review Comment:: Due to patients severe dementia a reliable ROS could not be obtained from the patient. I did discuss this with her son who was at bedside and he assisted in this. - Patient Data Vitals - Most Recent: Last Vital Signs Temp 97.3 F 09/26/17 12:10 Pulse 92 09/26/17 12:10 Resp 15 09/26/17 12:10 BP 126/77 09/26/17 12:10 Pulse Ox 94 L 09/26/17 12:10 Weight - Most Recent: 128 lb 14.4 oz I&O - Last 24 Hours: Intake & Output 09/26/17 09/26/17 09/26/17 06:59 14:59 22:59 Intake Total 450 0 1050 Balance 450 0 1050 Lab Results Last 24 Hours: Laboratory Results - last 24 hr 09/26/17 09/26/17 Range/Units 05:24 05:43 WBC 11.47 H (3.98-10.04) K/mm3 RBC 4.26 (3.98-5.22) M/mm3 Hgb 11.5 (11.2-15.7) gm/L Hct 37.8 (34.1-44.9) % MCV 88.7 (79.4-94.8) fl MCH 27.0 (25.6-32.2) pg MCHC 30.4 L (32.2-35.5) g/dl RDW Std Deviation 50.0 H (36.4-46.3) fL Plt Count 188 (182-369) K/mm3 MPV 11.8 (9.4-12.3) fl Neut % (Auto) 79.8 H (34.0-71.1) % Lymph % (Auto) 9.9 L (19.3-51.7) % [place] % (Auto) 9.5 (4.7-12.5) % Eos % (Auto) 0.2 L (0.7-5.8) Baso % (Auto) 0.2 (0.1-1.2) % Neut # (Auto) 9.15 H (1.56-6.13) K/mm3 Lymph # (Auto) 1.14 L (1.18-3.74) K/mm3 [place] # (Auto) 1.09 H (0.24-0.36) K/mm3 Eos # (Auto) 0.02 L (0.04-0.36) K/mm3 Baso # (Auto) 0.02 (0.01-0.08) K/mm3 Manual Slide Review Abnormal smear Sodium 156 H (136-145) mEq/L Potassium 3.7 (3.5-5.1) mEq/L Chloride 118 H (98-107) mEq/L Carbon Dioxide 27 (21-32) mEq/L Anion Gap 14.7 (5-15) BUN 47 H (7-18) mg/dL Creatinine 1.1 H (0.55-1.02) mg/dL Est Cr Clr Drug Dosing 34.41 mL/min Estimated GFR (MDRD) 48 (>60) mL/min BUN/Creatinine Ratio 42.7 H (14-18) Glucose 126 H (83-115) mg/dL Calcium 9.2 (8.5-10.1) mg/dL Magnesium 2.6 H (1.8-2.4) mg/dl C-Reactive Protein 11.7 H* (<1.0) mg/dL Med Orders - Current: Current Medications Apixaban (Eliquis) 2.5 mg PO BID [facility] Diphenhydr/Magaldrate/Simeth/Lidoca (First-Mouthwash Blm Susp) 30 ml PO ASDIRECTED PRN PRN Reason: Other Last Admin: 09/26/17 15:14 Dose: 30 ml Enoxaparin Sodium (Lovenox) 60 mg SUBCUT BID [facility] Sodium Chloride (Normal Saline) 1,000 mls @ 75 mls/hr IV ASDIRECTED [facility] Last Admin: 09/26/17 00:12 Dose: 75 mls/hr Ceftriaxone Sodium 1 gm/ (Sodium Chloride) 100 mls @ 200 mls/hr IV Q24H [facility] Sodium Chloride (Saline Flush) 10 ml FLUSH ASDIRECTED PRN PRN Reason: Keep Vein Open Last Admin: 09/25/17 19:04 Dose: 10 ml Temazepam (Restoril) 7.5 mg PO BEDTIME PRN PRN Reason: Sleep Discontinued Medications Enoxaparin Sodium (Lovenox) 60 mg SUBCUT Q12H [facility] Last Admin: 09/26/17 00:11 Dose: 60 mg Sodium Chloride (Normal Saline) 1,000 mls @ 100 mls/hr IV ONETIME ONE Stop: 09/26/17 03:30 Last Admin: 09/25/17 19:03 Dose: 100 mls/hr Sodium Chloride (Normal Saline) 100 mls @ 60 mls/hr IV ASDIRECTED [facility] Last Admin: 09/25/17 18:37 Dose: 60 mls/hr Levofloxacin/Dextrose 500 mg/ (Premix) 100 mls @ 100 mls/hr IV ONETIME ONE Stop: 09/25/17 20:34 Last Admin: 09/25/17 20:34 Dose: Not Given Ceftriaxone Sodium 2 gm/ (Sodium Chloride) 100 mls @ 200 mls/hr IV ONETIME ONE Stop: 09/25/17 20:13 Last Admin: 09/25/17 19:51 Dose: 200 mls/hr Iopamidol (Isovue-370 (76%)) 100 ml IVPUSH ONETIME ONE Stop: 09/25/17 17:42 Last Admin: 09/25/17 18:37 Dose: 100 ml Sodium Chloride (Saline Flush) 10 ml FLUSH ONETIME ONE Stop: 09/25/17 17:42 Last Admin: 09/25/17 18:37 Dose: 10 ml - Exam Quality Assessment: DVT Prophylaxis. No: Supplemental Oxygen General: Alert, No Acute Distress. No: Oriented, Cooperative HEENT: Pupils Equal, Pupils Reactive, EOMI, Mucous Membr. Moist/[place], Other ( oral thrush on tongue ) Neck: Supple Lungs: Normal Respiratory Effort, Decreased Breath Sounds Cardiovascular: Regular Rate GI/Abdominal Exam: Normal Bowel Sounds, Soft, Non-Tender, No Organomegaly, No Distention, No Abnormal Bruit, No Mass, Pelvis Stable (Female) Exam: Deferred Extremities: Normal Capillary Refill, Other (mild edema and erythema to left leg ) Peripheral Pulses: 2+: Radial (L), Radial (R), Posterior Tibial (L), Posterior Tibial (R), Dorsalis Pedis (L), Dorsalis Pedis (R) Skin: Warm, Dry, Intact Neurological: No New Focal Deficit Psy/Mental Status: Alert Physical Findings Comments:: Physical exam limited by severe dementia and patient being unwilling to allow thorough exam. - Problem List & Annotations (1) DVT (deep venous thrombosis) SNOMED Code(s): 545469787 Code(s): I82.409 - ACUTE EMBOLISM AND THOMBOS UNSP DEEP VN UNSP LOWER EXTREMITY Status: Acute Priority: High Current Visit: Yes Qualifiers: DVT location: lower extremity Affected thrombotic vein of extremity: unspecified lower extremity distal vein Chronicity: acute Laterality: left Qualified Code(s): I82.4Z2 - Acute embolism and thrombosis of unspecified deep veins of left distal lower extremity (2) Hypernatremia SNOMED Code(s): 94121311 Code(s): E87.0 - HYPEROSMOLALITY AND HYPERNATREMIA Status: Acute Priority : Medium Current Visit: Yes (3) Oral thrush SNOMED Code(s): 85478492 Code(s): B37.0 - CANDIDAL STOMATITIS Status: Acute Priority: Medium Current Visit: Yes (4) Pulmonary emboli SNOMED Code(s): 18362844 Code(s): I26.99 - OTHER PULMONARY EMBOLISM WITHOUT ACUTE COR PULMONALE Status: Acute Priority: High Current Visit: Yes Qualifiers: Pulmonary embolism type: other Chronicity: acute Acute cor pulmonale presence: without acute cor pulmonale Qualified Code(s): I26.99 - Other pulmonary embolism without acute cor pulmonale (5) Urinary tract infection SNOMED Code(s): 92322219 Code(s): N39.0 - URINARY TRACT INFECTION, SITE NOT SPECIFIED Status: Acute Priority: High Current Visit: No Qualifiers: Urinary tract infection type: acute cystitis Hematuria presence: without hematuria Qualified Code(s): N30.00 - Acute cystitis without hematuria (6) Acute renal injury SNOMED Code(s): 90282248 Code(s): N17.9 - ACUTE KIDNEY FAILURE, UNSPECIFIED Status: Acute Priority : Medium Current Visit: Yes - Problem List Review Problem List Initiated/Reviewed/Updated: Yes - My Orders Last 24 Hours: My Active Orders 09/27/17 09:00 Apixaban [Eliquis] 2.5 mg PO BID - Plan Plan:: I/P: Acute: DVT -Left lower leg swelling and erythema -No prior blood thinners -WBC 16.04 -INR 0.87, APPT 24 in ED -Very sedimentary as son reports 6 month decline, dementia -Lower extremity US (09/26/16) - diffuse deep venous thrombosis -Receiving lovenox 60mg BID - hold starting tonight -Begin Eliquis 2.5mg BID tomorrow PE -Oxygen saturations at 90% in ED -->97 now -D-dimer 8.75 -CTA shows RLL PE -Lovenox switching to Eliquis as above -Monitor Hypernatremia -Unable to carpenter general any mental status change due to severe dementia -Na 151 in ED -->156 -Switch fluids to D5W, slow infusion -Monitor glucose Oral Thrush -Son reports recent onset of white coating on tongue and halitosis -Magic mouthwash -Monitor Acute renal injury -Baseline from prior visits shows creatinine of 0.9 and eGFR >60 -Creatinine 1.7-->1.1; BUN 55-->47; eGFR 29-->48 -Fluids as ordered -Pharmacy to renally dose medications -Avoid nephrotoxic drugs UTI -Son reports foul smelling urine -Risk factor: advance dementia, fecal and urinary incontinence -WBC 16.04-->11.47 -CRP 16.3-->11.7 -UA in ED not impressive but does show "many bacteria." -Urine culture - gram negative rods -Sensitivities pending -Rocephin 1gm Q24 Chronic: Constipation Fecal incontinence Urinary incontinence Alzheimers disease Plan: CM/SW for discharge planning - Home health vs. SNF PT Other orders as indicated above Routine AM labs Home medications as ordered Liquid diet as son reports pt. only able to tolerate liquids Dietary consult Code status: Full code. Her PCP is Sosa Valerio, Nurse practitioner, in [place].
[2017-09-26] MEDS ORDERED: cefTRIAXone 1 GM in Sodium Chloride 0.9% 100 ML IV SCH (20:00)
[2017-09-26] MEDS ORDERED: Magnesium Hydroxide 400 MG/5 ML Susp 30 ML Cup PO ONE (21:14)
[2017-09-26] MEDS ORDERED: Dextrose 5% in Water 1,000 ML IV SCH (23:45)
[2017-09-27] MEDS ORDERED: Apixaban 5 MG Tab PO SCH (09:00)
[2017-09-27] MEDS: Diphenhydramine/Lidocaine/MagAl/Simethicone 119 ML Bottle PO PRN ×3 (09:31→18:20)
[2017-09-27] MEDS ORDERED: Dextrose 5% in Water 1,000 ML IV SCH (15:15)
--- NOTE | 2017-09-27 16:47 | PCM.PN ---
- General Info Date of Service: 09/27/17 Admission Dx/Problem (Free Text): PE, Oral thrush, Hypernatremia Subjective Update: In to see Angie today. She is lying in bed sleeping and only wakes up for a moment. She is very demented. I attempted to question the patient unsuccessfully. Her son is at bedside. We had a lengthy discussion about her code status and treatment plan after discharge. I discussed CPR and intubation with him, along with her quality of life. He states his mother did not have any advanced directive and did not give any guidance on what to do should she be in that situation. He ultimately decided that she would not want anything done. He requests we change her to DNR/DNI and he will discuss it with his brother to ensure everyone is on the same page. Both are listed as medical [place] of family law attorney per his report. He did mention some concern with bringing his mother home because she has been so weak and PT/OT has been unable to do much with her. He is the only hse advisor she has here. We discussed SNF vs. rehab stay vs. home with home health. He has some concerns over expenses should she need placement. I suggested he discuss this with the social work associate when she is in tomorrow to get the ball rolling on assistance or options. She started her Eliquis today. We discussed assistance from the record clerk salesperson and he is going to call them to possibly obtain a discount card. Her sodium increased slightly last night. I will increase D5W to 200ml for 6 hours and then hold fluids to await AM lab draw. Her potassium was low today and will be supplemented IV. I did add aspiration precautions to her orders as well. Rocephin was discontinued and keflex started PO. Sewing Inspector was in to see her and did discuss with her son some good options for nourishment. He reports she gave him some good information. Functional Status: Reports: Tolerating Diet (liquids ) - Review of Systems General: Reports: Weakness, Fatigue, Malaise HEENT: Reports: No Symptoms Pulmonary: Reports: No Symptoms Cardiovascular: Reports: No Symptoms Gastrointestinal: Reports: No Symptoms Genitourinary: Reports: No Symptoms Musculoskeletal: Reports: Other (left leg still swollen and erythemic ) Skin: Reports: No Symptoms Neurological: Reports: No Symptoms Psychiatric: Reports: No Symptoms Systems Review Comment:: Patient is severely demented and unable to provide a reliable ROS. I did obtain a little bit about her from her son who is at bedside. - Patient Data Vitals - Most Recent: Last Vital Signs Temp 97.2 F 09/27/17 11:36 Pulse 69 09/27/17 11:36 Resp 32 H 09/27/17 11:36 BP 106/63 09/27/17 11:36 Pulse Ox 92 L 09/27/17 11:36 Weight - Most Recent: 128 lb I&O - Last 24 Hours: Intake & Output 09/27/17 09/27/17 09/27/17 06:59 14:59 22:59 Intake Total 925 300 Balance 925 300 Lab Results Last 24 Hours: Laboratory Results - last 24 hr 09/27/17 09/27/17 09/27/17 Range/Units 05:45 05:45 05:45 WBC 7.02 (3.98-10.04) K/mm3 RBC 3.87 L (3.98-5.22) M/mm3 Hgb 10.4 L (11.2-15.7) gm/L Hct 34.7 (34.1-44.9) % MCV 89.7 (79.4-94.8) fl MCH 26.9 (25.6-32.2) pg MCHC 30.0 L (32.2-35.5) g/dl RDW Std Deviation 50.3 H (36.4-46.3) fL Plt Count 213 (182-369) K/mm3 MPV 11.0 (9.4-12.3) fl Neut % (Auto) 75.2 H (34.0-71.1) % Lymph % (Auto) 14.5 L (19.3-51.7) % [place] % (Auto) 9.5 (4.7-12.5) % Eos % (Auto) 0.7 (0.7-5.8) Baso % (Auto) 0.1 (0.1-1.2) % Neut # (Auto) 5.27 (1.56-6.13) K/mm3 Lymph # (Auto) 1.02 L (1.18-3.74) K/mm3 [place] # (Auto) 0.67 H (0.24-0.36) K/mm3 Eos # (Auto) 0.05 (0.04-0.36) K/mm3 Baso # (Auto) 0.01 (0.01-0.08) K/mm3 PT 9.7 (8.0-13.0) SECONDS INR 0.90 Sodium 157 H (136-145) mEq/L Potassium 3.4 L (3.5-5.1) mEq/L Chloride 122 H (98-107) mEq/L Carbon Dioxide 27 (21-32) mEq/L Anion Gap 11.4 (5-15) BUN 31 H (7-18) mg/dL Creatinine 0.9 (0.55-1.02) mg/dL Est Cr Clr Drug Dosing 42.06 mL/min Estimated GFR (MDRD) > 60 (>60) mL/min BUN/Creatinine Ratio 34.4 H (14-18) Glucose 108 (83-115) mg/dL Calcium 9.0 (8.5-10.1) mg/dL Magnesium 2.4 (1.8-2.4) mg/dl C-Reactive Protein 7.4 H* (<1.0) mg/dL Med Orders - Current: Current Medications Apixaban (Eliquis) 10 mg PO BID [facility] Stop: 10/03/17 21:01 Apixaban (Eliquis) 5 mg PO BID [facility] Cephalexin (Keflex) 500 mg PO Q12H [facility] Diphenhydr/Magaldrate/Simeth/Lidoca (First-Mouthwash Blm Susp) 30 ml PO ASDIRECTED PRN PRN Reason: Other Last Admin: 09/27/17 15:17 Dose: 30 ml Dextrose/Water (Dextrose 5% In Water) 1,000 mls @ 200 mls/hr IV ASDIRECTED [facility] Stop: 09/27/17 21:30 Last Admin: 09/27/17 15:15 Dose: 200 mls/hr Namzaric 28 Mg-10 Mg (Capsule) 0 each PO DAILY [facility] Last Admin: 09/27/17 09:25 Dose: 1 each Risperidone (Risperidal) 0.5 mg PO DAILY@1800 [facility] Sodium Chloride (Saline Flush) 10 ml FLUSH ASDIRECTED PRN PRN Reason: Keep Vein Open Last Admin: 09/25/17 19:04 Dose: 10 ml Temazepam (Restoril) 7.5 mg PO BEDTIME PRN PRN Reason: Sleep Last Admin: 09/26/17 21:42 Dose: 7.5 mg Discontinued Medications Apixaban (Eliquis) 2.5 mg PO BID [facility] Last Admin: 09/27/17 09:25 Dose: 2.5 mg Enoxaparin Sodium (Lovenox) 60 mg SUBCUT Q12H [facility] Last Admin: 09/26/17 00:11 Dose: 60 mg Enoxaparin Sodium (Lovenox) 60 mg SUBCUT BID [facility] Last Admin: 09/26/17 20:39 Dose: Not Given Sodium Chloride (Normal Saline) 1,000 mls @ 100 mls/hr IV ONETIME ONE Stop: 09/26/17 03:30 Last Admin: 09/25/17 19:03 Dose: 100 mls/hr Sodium Chloride (Normal Saline) 100 mls [facility] Last Admin: 09/25/17 18:37 Dose: 60 mls/hr Levofloxacin/Dextrose 500 mg/ (Premix) 100 mls @ 100 mls/hr IV ONETIME ONE Stop: 09/25/17 20:34 Last Admin: 09/25/17 20:34 Dose: Not Given Ceftriaxone Sodium 2 gm/ (Sodium Chloride) 100 mls @ 200 mls/hr IV ONETIME ONE Stop: 09/25/17 20:13 Last Admin: 09/25/17 19:51 Dose: 200 mls/hr Sodium Chloride (Normal Saline) 1,000 mls @ [facility] Last Admin: 09/26/17 18:05 Dose: 75 mls/hr Ceftriaxone Sodium 1 gm/ (Sodium Chloride) 100 mls @ 200 mls/hr IV Q24H [facility] Last Admin: 09/26/17 20:36 Dose: 200 mls/hr Dextrose/Water (Dextrose 5% In Water) 1,000 mls @ [facility] Last Admin: 09/27/17 01:21 Dose: 75 mls/hr Iopamidol (Isovue-370 (76%)) 100 ml IVPUSH ONETIME ONE Stop: 09/25/17 17:42 Last Admin: 09/25/17 18:37 Dose: 100 ml Magnesium Hydroxide (Milk Of Magnesia) 30 ml PO ONETIME ONE Stop: 09/26/17 21:15 Last Admin: 09/26/17 21:42 Dose: 30 ml Sodium Chloride (Saline Flush) 10 ml FLUSH ONETIME ONE Stop: 09/25/17 17:42 Last Admin: 09/25/17 18:37 Dose: 10 ml - Exam Quality Assessment: DVT Prophylaxis General: No Acute Distress, Other (Sleeping on exam. She does wake up for a moment but is uncoperative. ). No: Oriented, Cooperative HEENT: Pupils Equal, Mucous Membr. Moist/[place] Neck: Supple, Trachea Midline. No: No JVD, No Thyromegaly Lungs: Normal Respiratory Effort, Decreased Breath Sounds Cardiovascular: Regular Rate GI/Abdominal Exam: Normal Bowel Sounds, Soft, Non-Tender, No Organomegaly, No Distention, No Abnormal Bruit, No Mass, Pelvis Stable (Female) Exam: Deferred Extremities: Non-Tender, Normal Capillary Refill, Other (left leg edematous and erythematous) Peripheral Pulses: 2+: Radial (L), Radial (R), Posterior Tibial (L), Posterior Tibial (R), Dorsalis Pedis (L), Dorsalis Pedis (R) Skin: Warm, Dry, Intact Neurological: No New Focal Deficit Psy/Mental Status: Other (Asleep and demented ) - Problem List & Annotations (1) DVT (deep venous thrombosis) SNOMED Code(s): 866067036 Code(s): I82.409 - ACUTE EMBOLISM AND THOMBOS UNSP DEEP VN UNSP LOWER EXTREMITY Status: Acute Priority: High Current Visit: Yes Qualifiers: DVT location: lower extremity Affected thrombotic vein of extremity: unspecified lower extremity distal vein Chronicity: acute Laterality: left Qualified Code(s): I82.4Z2 - Acute embolism and thrombosis of unspecified deep veins of left distal lower extremity (2) Hypernatremia SNOMED Code(s): 73470124 Code(s): E87.0 - HYPEROSMOLALITY AND HYPERNATREMIA Status: Acute Priority : Medium Current Visit: Yes (3) Oral thrush SNOMED Code(s): 40652039 Code(s): B37.0 - CANDIDAL STOMATITIS Status: Acute Priority: Medium Current Visit: Yes (4) Pulmonary emboli SNOMED Code(s): 92731408 Code(s): I26.99 - OTHER PULMONARY EMBOLISM WITHOUT ACUTE COR PULMONALE Status: Acute Priority: High Current Visit: Yes Qualifiers: Pulmonary embolism type: other Chronicity: acute Acute cor pulmonale presence: without acute cor pulmonale Qualified Code(s): I26.99 - Other pulmonary embolism without acute cor pulmonale (5) Urinary tract infection SNOMED Code(s): 89149145 Code(s): N39.0 - URINARY TRACT INFECTION, SITE NOT SPECIFIED Status: Acute Priority: High Current Visit: No Qualifiers: Urinary tract infection type: acute cystitis Hematuria presence: without hematuria Qualified Code(s): N30.00 - Acute cystitis without hematuria (6) Acute renal injury SNOMED Code(s): 02269783 Code(s): N17.9 - ACUTE KIDNEY FAILURE, UNSPECIFIED Status: Resolved Priority: Medium Current Visit: Yes (7) Hypokalemia SNOMED Code(s): 81693431 Code(s): E87.6 - HYPOKALEMIA Status: Acute Priority: Medium Current Visit: Yes - Problem List Review Problem List Initiated/Reviewed/Updated: Yes - My Orders Last 24 Hours: My Active Orders 09/26/17 20:53 Activity as Tolerated [RC] QSHIFT Up to Chair [RC] QSHIFT 09/27/17 10:57 Apixaban [Eliquis] 10 mg PO BID 09/27/17 15:15 Dextrose 5% in Water 1,000 ml IV ASDIRECTED 09/28/17 05:11 BASIC METABOLIC PANEL,BMP [CHEM] AM CBC WITH AUTO DIFF [HEME] AM CRP [C-REACTIVE PROTEIN] [CHEM] AM MAGNESIUM [CHEM] AM 09/29/17 05:11 BASIC METABOLIC PANEL,BMP [CHEM] AM CBC WITH AUTO DIFF [HEME] AM CRP [C-REACTIVE PROTEIN] [CHEM] AM MAGNESIUM [CHEM] AM 09/30/17 05:11 BASIC METABOLIC PANEL,BMP [CHEM] AM CBC WITH AUTO DIFF [HEME] AM CRP [C-REACTIVE PROTEIN] [CHEM] AM MAGNESIUM [CHEM] AM - Plan Plan:: I/P: Acute: DVT -Left lower leg swelling and erythema -No prior blood thinners -WBC 16.04--> 7.02 -INR 0.87 in ED -->0.96, APPT 24 in ED -Very sedimentary as son reports 6 month decline, dementia -Lower extremity US (09/26/16) - diffuse deep venous thrombosis -Receiving lovenox 60mg BID - hold starting 09/26/16 PM -Begin Eliquis BID tomorrow PE -Oxygen saturations at 90% in ED -->97; In low to mid 90's throughout day while sleeping -D-dimer 8.75 -CTA shows RLL PE -Lovenox switching to Eliquis as above -Monitor Hypernatremia -Unable to workforce management analyst any mental status change due to severe dementia -Na 151 in ED -->156-->157 -Switch fluids to D5W, slow infusion-->150ml infusion over 6 hrs tonight -Will wait for labs in AM to adjust further -Monitor glucose Oral Thrush -Son reports recent onset of white coating on tongue and halitosis -Magic mouthwash -Monitor UTI -Son reports foul smelling urine -Risk factor: advance dementia, fecal and urinary incontinence -WBC 16.04-->11.47-->7.02 -CRP 16.3-->11.7-->7.4 -UA in ED not impressive but does show "many bacteria." -Urine culture - gram negative rods -Sensitivities obtained -Rocephin 1gm Q24; Discontinue and switch to PO Keflex Hypokalemia -Potassium 3.4 today -IV potassium replacement -Continue to monitor Resolved: Acute renal injury -Baseline from prior visits shows creatinine of 0.9 and eGFR >60 -Creatinine 1.7-->1.1-->0.9; BUN 55-->47-->31; eGFR 29-->48--> greater than 60 -Fluids as ordered -Pharmacy to renally dose medications -Avoid nephrotoxic drugs Chronic: Constipation Fecal incontinence Urinary incontinence Alzheimers disease Plan: CM/SW for discharge planning - Home health vs. SNF vs. rehab stay PT Other orders as indicated above Routine AM labs Home medications as ordered Liquid diet as son reports pt. only able to tolerate liquids Dietary consult Code status: Full code. Her PCP is Sosa Valerio, Nurse practitioner, in [place].
[2017-09-27] MEDS: Potassium Chloride 10 MEQ in Premix Bag 1 BAG IV SCH ×4 (17:53→21:53)
[2017-09-27] MEDS: Cephalexin 500 MG Cap PO SCH (18:00)
[2017-09-27] MEDS: risperiDONE 0.5 MG Tab PO SCH (18:00)
[2017-09-27] MEDS: Apixaban 5 MG Tab PO SCH ×2 (20:51)
[2017-09-28] MEDS: Cephalexin 500 MG Cap PO SCH ×2 (05:32→17:50)
[2017-09-28] MEDS: Apixaban 5 MG Tab PO SCH ×3 (08:14→22:46)
[2017-09-28] MEDS: Diphenhydramine/Lidocaine/MagAl/Simethicone 119 ML Bottle PO PRN (08:14)
[2017-09-28] MEDS: risperiDONE 0.5 MG Tab PO SCH (17:50)
--- NOTE | 2017-09-28 18:50 | PCM.PN ---
- General Info Date of Service: 09/28/17 Functional Status: Reports: Pain Controlled, Tolerating Diet, Urinating - Review of Systems General: Reports: No Symptoms HEENT: Reports: No Symptoms Pulmonary: Reports: No Symptoms Cardiovascular: Reports: No Symptoms Gastrointestinal: Reports: No Symptoms Genitourinary: Reports: No Symptoms Musculoskeletal: Reports: No Symptoms Skin: Reports: No Symptoms Neurological: Reports: No Symptoms Psychiatric: Reports: No Symptoms - Patient Data Vitals - Most Recent: Last Vital Signs Temp 36.7 C 09/28/17 15:26 Pulse 88 09/28/17 15:26 Resp 20 09/28/17 15:26 BP 109/76 09/28/17 15:26 Pulse Ox 98 09/28/17 15:26 Weight - Most Recent: 59.375 kg I&O - Last 24 Hours: Intake & Output 09/28/17 09/28/17 09/28/17 06:59 14:59 22:59 Intake Total 824 340 600 Output Total 1 Balance 824 340 599 Lab Results Last 24 Hours: Laboratory Results - last 24 hr 09/28/17 09/28/17 Range/Units 05:50 05:50 WBC 7.72 (3.98-10.04) K/mm3 RBC 3.92 L (3.98-5.22) M/mm3 Hgb 10.6 L (11.2-15.7) gm/L Hct 34.9 (34.1-44.9) % MCV 89.0 (79.4-94.8) fl MCH 27.0 (25.6-32.2) pg MCHC 30.4 L (32.2-35.5) g/dl RDW Std Deviation 49.2 H (36.4-46.3) fL Plt Count 220 (182-369) K/mm3 MPV 10.2 (9.4-12.3) fl Neut % (Auto) 68.9 (34.0-71.1) % Lymph % (Auto) 17.5 L (19.3-51.7) % [place] % (Auto) 10.9 (4.7-12.5) % Eos % (Auto) 1.8 (0.7-5.8) Baso % (Auto) 0.1 (0.1-1.2) % Neut # (Auto) 5.32 (1.56-6.13) K/mm3 Lymph # (Auto) 1.35 (1.18-3.74) K/mm3 [place] # (Auto) 0.84 H (0.24-0.36) K/mm3 Eos # (Auto) 0.14 (0.04-0.36) K/mm3 Baso # (Auto) 0.01 (0.01-0.08) K/mm3 Sodium 148 H (136-145) mEq/L Potassium 3.9 (3.5-5.1) mEq/L Chloride 115 H (98-107) mEq/L Carbon Dioxide 25 (21-32) mEq/L Anion Gap 11.9 (5-15) BUN 19 H (7-18) mg/dL Creatinine 0.9 (0.55-1.02) mg/dL Est Cr Clr Drug Dosing 41.69 mL/min Estimated GFR (MDRD) > 60 (>60) mL/min BUN/Creatinine Ratio 21.1 H (14-18) Glucose 108 (83-115) mg/dL Calcium 9.1 (8.5-10.1) mg/dL Magnesium 2.2 (1.8-2.4) mg/dl C-Reactive Protein 4.3 H* (<1.0) mg/dL Med Orders - Current: Current Medications Apixaban (Eliquis) 10 mg PO BID [facility] Stop: 10/03/17 21:01 Last Admin: 09/28/17 08:14 Dose: 10 mg Apixaban (Eliquis) 5 mg PO BID [facility] Cephalexin (Keflex) 500 mg PO Q12H [facility] Last Admin: 09/28/17 17:50 Dose: 500 mg Diphenhydr/Magaldrate/Simeth/Lidoca (First-Mouthwash Blm Susp) 30 ml PO ASDIRECTED PRN PRN Reason: Other Last Admin: 09/28/17 08:14 Dose: 30 ml Namzaric 28 Mg-10 Mg (Capsule) 0 each PO DAILY [facility] Last Admin: 09/28/17 08:15 Dose: 1 each Risperidone (Risperidal) 0.5 mg PO DAILY@1800 [facility] Last Admin: 09/28/17 17:50 Dose: 0.5 mg Sodium Chloride (Saline Flush) 10 ml FLUSH ASDIRECTED PRN PRN Reason: Keep Vein Open Last Admin: 09/25/17 19:04 Dose: 10 ml Temazepam (Restoril) 7.5 mg PO BEDTIME PRN PRN Reason: Sleep Last Admin: 09/26/17 21:42 Dose: 7.5 mg Discontinued Medications Apixaban (Eliquis) 2.5 mg PO BID [facility] Last Admin: 09/27/17 09:25 Dose: 2.5 mg Apixaban (Eliquis) 5 mg PO BID [facility] Last Admin: 09/28/17 08:14 Dose: 5 mg Enoxaparin Sodium (Lovenox) 60 mg SUBCUT Q12H [facility] Last Admin: 09/26/17 00:11 Dose: 60 mg Enoxaparin Sodium (Lovenox) 60 mg SUBCUT BID [facility] Last Admin: 09/26/17 20:39 Dose: Not Given Sodium Chloride (Normal Saline) 1,000 mls @ 100 mls/hr IV ONETIME ONE Stop: 09/26/17 03:30 Last Admin: 09/25/17 19:03 Dose: 100 mls/hr Sodium Chloride (Normal Saline) 100 mls @ 60 mls/hr IV ASDIRECTED [facility] Last Admin: 09/25/17 18:37 Dose: 60 mls/hr Levofloxacin/Dextrose 500 mg/ (Premix) 100 mls @ 100 mls/hr IV ONETIME ONE Stop: 09/25/17 20:34 Last Admin: 09/25/17 20:34 Dose: Not Given Ceftriaxone Sodium 2 gm/ (Sodium Chloride) 100 mls @ 200 mls/hr IV ONETIME ONE Stop: 09/25/17 20:13 Last Admin: 09/25/17 19:51 Dose: 200 mls/hr Sodium Chloride (Normal Saline) 1,000 mls @ 75 mls/hr IV ASDIRECTED [facility] Last Admin: 09/26/17 18:05 Dose: 75 mls/hr Ceftriaxone Sodium 1 gm/ (Sodium Chloride) 100 mls @ 200 mls/hr IV Q24H [facility] Last Admin: 09/26/17 20:36 Dose: 200 mls/hr Dextrose/Water (Dextrose 5% In Water) 1,000 mls @ 75 mls/hr IV ASDIRECTED [facility] Last Admin: 09/27/17 01:21 Dose: 75 mls/hr Dextrose/Water (Dextrose 5% In Water) 1,000 mls @ 200 mls/hr IV ASDIRECTED [facility] Stop: 09/27/17 21:30 Last Admin: 09/27/17 15:15 Dose: 150 mls/hr Potassium Chloride 10 meq/ (Premix) 100 mls @ 100 mls/hr IV Q1H [facility] Stop: 09/27/17 20:59 Last Admin: 09/27/17 21:53 Dose: 100 mls/hr Iopamidol (Isovue-370 (76%)) 100 ml IVPUSH ONETIME ONE Stop: 09/25/17 17:42 Last Admin: 09/25/17 18:37 Dose: 100 ml Magnesium Hydroxide (Milk Of Magnesia) 30 ml PO ONETIME ONE Stop: 09/26/17 21:15 Last Admin: 09/26/17 21:42 Dose: 30 ml Sodium Chloride (Saline Flush) 10 ml FLUSH ONETIME ONE Stop: 09/25/17 17:42 Last Admin: 09/25/17 18:37 Dose: 10 ml - Exam Quality Assessment: DVT Prophylaxis General: Alert, No Acute Distress HEENT: Pupils Equal, Pupils Reactive, EOMI Neck: Supple, Trachea Midline, No JVD Lungs: Normal Respiratory Effort Cardiovascular: Regular Rate, Regular Rhythm GI/Abdominal Exam: Normal Bowel Sounds, Soft, Non-Tender, No Organomegaly, No Distention (Female) Exam: Deferred Back Exam: Normal Inspection Extremities: Normal Inspection Skin: Warm Neurological: No New Focal Deficit Psy/Mental Status: Alert - Problem List Review Problem List Initiated/Reviewed/Updated: Yes - My Orders Last 24 Hours: My Active Orders 09/27/17 18:00 Cephalexin [Keflex] 500 mg PO Q12H risperiDONE [RisperiDAL] 0.5 mg PO DAILY@1800 10/04/17 09:00 Apixaban [Eliquis] 5 mg PO BID - Plan Plan:: I/P: Acute: DVT -Left lower leg swelling and erythema -No prior blood thinners -WBC 16.04--> 7.02 -INR 0.87 in ED -->0.96, APPT 24 in ED -Very sedimentary as son reports 6 month decline, dementia -Lower extremity US (09/26/16) - diffuse deep venous thrombosis -Receiving lovenox 60mg BID - hold starting 09/26/16 PM -Begin Eliquis BID tomorrow PE -Oxygen saturations at 90% in ED -->97; In low to mid 90's throughout day while sleeping -D-dimer 8.75 -CTA shows RLL PE -Lovenox switching to Eliquis as above -Monitor Hypernatremia -Unable to press operator assistant any mental status change due to severe dementia -Na 151 in ED -->156-->157 -Switch fluids to D5W, slow infusion-->150ml infusion over 6 hrs tonight -Will wait for labs in AM to adjust further -Monitor glucose Oral Thrush -Son reports recent onset of white coating on tongue and halitosis -Magic mouthwash -Monitor UTI -Son reports foul smelling urine -Risk factor: advance dementia, fecal and urinary incontinence -WBC 16.04-->11.47-->7.02 -CRP 16.3-->11.7-->7.4 -UA in ED not impressive but does show "many bacteria." -Urine culture - gram negative rods -Sensitivities obtained -Rocephin 1gm Q24; Discontinue and switch to PO Keflex Hypokalemia -IV potassium replacement -Continue to monitor Resolved: Acute renal injury -Baseline from prior visits shows creatinine of 0.9 and eGFR >60 -Creatinine 1.7-->1.1-->0.9; BUN 55-->47-->31; eGFR 29-->48--> greater than 60 -Fluids as ordered -Pharmacy to renally dose medications -Avoid nephrotoxic drugs Chronic: Constipation Fecal incontinence Urinary incontinence Alzheimers disease Plan: CM/SW for discharge planning - Home health vs. SNF vs. rehab stay PT Other orders as indicated above Routine AM labs Home medications as ordered Liquid diet as son reports pt. only able to tolerate liquids Dietary consult Code status: Full code. Her PCP is Sosa Valerio, Nurse practitioner, in [place]. LOS>96 hours, responding to anticoagulation
[2017-09-29] MEDS: Cephalexin 500 MG Cap PO SCH ×2 (06:57→17:22)
[2017-09-29] MEDS: Apixaban 5 MG Tab PO SCH ×2 (09:31→21:00)
--- NOTE | 2017-09-29 15:00 | PCM.PN ---
- General Info Date of Service: 09/29/17 Admission Dx/Problem (Free Text): PE, Oral thrush, Hypernatremia Subjective Update: In to see Angie today. She is lying in bed resting. She does wake up when I call her name. She is not very cooperative for my physical exam. Her son is not in the room. She does not appear to be in any distress at this time. She has reportedly been up with therapy today. Her son is requesting she return home with him and not be placed in SNF. HHC will likely be needed. Likely discharge tomorrow 09/30/17. Functional Status: Reports: Pain Controlled, Tolerating Diet, Ambulating, Urinating. Denies: New Symptoms - Review of Systems Systems Review Comment:: Patient is extremely demented and unable to communicate. She is alone in the room. ROS could therefore not be obtained. In looking at previous notes she has been eating her liquid diet. She has been up with PT. She appears to be doing quite well and improving slowly. - Patient Data Vitals - Most Recent: Last Vital Signs Temp 98.1 F 09/29/17 11:21 Pulse 92 09/29/17 11:21 Resp 18 09/29/17 11:21 BP 105/73 09/29/17 11:21 Pulse Ox 100 09/29/17 11:21 Weight - Most Recent: 132 lb 8 oz I&O - Last 24 Hours: Intake & Output 09/29/17 09/29/17 09/29/17 06:59 14:59 22:59 Intake Total 120 360 Balance 120 360 Lab Results Last 24 Hours: Laboratory Results - last 24 hr 09/29/17 09/29/17 Range/Units 05:25 05:25 WBC 6.04 (3.98-10.04) K/mm3 RBC 3.77 L (3.98-5.22) M/mm3 Hgb 10.1 L (11.2-15.7) gm/L Hct 33.4 L (34.1-44.9) % MCV 88.6 (79.4-94.8) fl MCH 26.8 (25.6-32.2) pg MCHC 30.2 L (32.2-35.5) g/dl RDW Std Deviation 48.4 H (36.4-46.3) fL Plt Count 233 (182-369) K/mm3 MPV 10.4 (9.4-12.3) fl Neut % (Auto) 64.9 (34.0-71.1) % Lymph % (Auto) 20.5 (19.3-51.7) % Bell % (Auto) 10.6 (4.7-12.5) % Eos % (Auto) 2.5 (0.7-5.8) Baso % (Auto) 0.2 (0.1-1.2) % Neut # (Auto) 3.92 (1.56-6.13) K/mm3 Lymph # (Auto) 1.24 (1.18-3.74) K/mm3 Bell # (Auto) 0.64 H (0.24-0.36) K/mm3 Eos # (Auto) 0.15 (0.04-0.36) K/mm3 Baso # (Auto) 0.01 (0.01-0.08) K/mm3 Sodium 149 H (136-145) mEq/L Potassium 3.8 (3.5-5.1) mEq/L Chloride 115 H (98-107) mEq/L Carbon Dioxide 26 (21-32) mEq/L Anion Gap 11.8 (5-15) BUN 16 (7-18) mg/dL Creatinine 0.9 (0.55-1.02) mg/dL Est Cr Clr Drug Dosing 41.69 mL/min Estimated GFR (MDRD) > 60 (>60) mL/min BUN/Creatinine Ratio 17.8 (14-18) Glucose 93 (83-115) mg/dL Calcium 9.0 (8.5-10.1) mg/dL Magnesium 2.2 (1.8-2.4) mg/dl C-Reactive Protein 3.3 H* (<1.0) mg/dL Med Orders - Current: Current Medications Apixaban (Eliquis) 10 mg PO BID [facility] Stop: 10/03/17 21:01 Last Admin: 09/29/17 09:31 Dose: 10 mg Apixaban (Eliquis) 5 mg PO BID [facility] Cephalexin (Keflex) 500 mg PO Q12H [facility] Last Admin: 09/29/17 06:57 Dose: 500 mg Diphenhydr/Magaldrate/Simeth/Lidoca (First-Mouthwash Blm Susp) 30 ml PO ASDIRECTED PRN PRN Reason: Other Last Admin: 09/28/17 08:14 Dose: 30 ml Namzaric 28 Mg-10 Mg (Capsule) 0 each PO DAILY [facility] Last Admin: 09/29/17 09:32 Dose: 1 each Risperidone (Risperidal) 0.5 mg PO DAILY@1800 [facility] Last Admin: 09/28/17 17:50 Dose: 0.5 mg Sodium Chloride (Saline Flush) 10 ml FLUSH ASDIRECTED PRN PRN Reason: Keep Vein Open Last Admin: 09/25/17 19:04 Dose: 10 ml Temazepam (Restoril) 7.5 mg PO BEDTIME PRN PRN Reason: Sleep Last Admin: 09/26/17 21:42 Dose: 7.5 mg Discontinued Medications Apixaban (Eliquis) 2.5 mg PO BID [facility] Last Admin: 09/27/17 09:25 Dose: 2.5 mg Apixaban (Eliquis) 5 mg PO BID [facility] Last Admin: 09/28/17 08:14 Dose: 5 mg Enoxaparin Sodium (Lovenox) 60 mg SUBCUT Q12H [facility] Last Admin: 09/26/17 00:11 Dose: 60 mg Enoxaparin Sodium (Lovenox) 60 mg SUBCUT BID [facility] Last Admin: 09/26/17 20:39 Dose: Not Given Sodium Chloride (Normal Saline) 1,000 mls @ 100 mls/hr IV ONETIME ONE Stop: 09/26/17 03:30 Last Admin: 09/25/17 19:03 Dose: 100 mls/hr Sodium Chloride (Normal Saline) 100 mls @ 60 mls/hr IV ASDIRECTED [facility] Last Admin: 09/25/17 18:37 Dose: 60 mls/hr Levofloxacin/Dextrose 500 mg/ (Premix) 100 mls @ 100 mls/hr IV ONETIME ONE Stop: 09/25/17 20:34 Last Admin: 09/25/17 20:34 Dose: Not Given Ceftriaxone Sodium 2 gm/ (Sodium Chloride) 100 mls @ 200 mls/hr IV ONETIME ONE Stop: 09/25/17 20:13 Last Admin: 09/25/17 19:51 Dose: 200 mls/hr Sodium Chloride (Normal Saline) 1,000 mls @ 75 mls/hr IV ASDIRECTED [facility] Last Admin: 09/26/17 18:05 Dose: 75 mls/hr Ceftriaxone Sodium 1 gm/ (Sodium Chloride) 100 mls @ 200 mls/hr IV Q24H [facility] Last Admin: 09/26/17 20:36 Dose: 200 mls/hr Dextrose/Water (Dextrose 5% In Water) 1,000 mls @ 75 mls/hr IV ASDIRECTED [facility] Last Admin: 09/27/17 01:21 Dose: 75 mls/hr Dextrose/Water (Dextrose 5% In Water) 1,000 mls @ 200 mls/hr IV ASDIRECTED [facility] Stop: 09/27/17 21:30 Last Admin: 09/27/17 15:15 Dose: 150 mls/hr Potassium Chloride 10 meq/ (Premix) 100 mls @ 100 mls/hr IV Q1H [facility] Stop: 09/27/17 20:59 Last Admin: 09/27/17 21:53 Dose: 100 mls/hr Iopamidol (Isovue-370 (76%)) 100 ml IVPUSH ONETIME ONE Stop: 09/25/17 17:42 Last Admin: 09/25/17 18:37 Dose: 100 ml Magnesium Hydroxide (Milk Of Magnesia) 30 ml PO ONETIME ONE Stop: 09/26/17 21:15 Last Admin: 09/26/17 21:42 Dose: 30 ml Sodium Chloride (Saline Flush) 10 ml FLUSH ONETIME ONE Stop: 09/25/17 17:42 Last Admin: 09/25/17 18:37 Dose: 10 ml - Exam Quality Assessment: DVT Prophylaxis General: Alert. No: Oriented, Cooperative HEENT: Pupils Equal, Pupils Reactive, EOMI, Mucous Membr. Moist/Singer Neck: Supple, Trachea Midline Lungs: Clear to Auscultation, Normal Respiratory Effort Cardiovascular: Regular Rate, Regular Rhythm GI/Abdominal Exam: Normal Bowel Sounds, Soft, Non-Tender, No Organomegaly, No Distention, No Abnormal Bruit, No Mass, Pelvis Stable Extremities: Normal Inspection, Normal Range of Motion, Non-Tender, No Pedal Edema, Normal Capillary Refill Peripheral Pulses: 2+: Radial (L), Radial (R), Posterior Tibial (L), Posterior Tibial (R), Dorsalis Pedis (L), Dorsalis Pedis (R) Skin: Warm, Dry, Intact Neurological: No New Focal Deficit Psy/Mental Status: Alert - Problem List & Annotations (1) DVT (deep venous thrombosis) SNOMED Code(s): 533420934 Code(s): I82.409 - ACUTE EMBOLISM AND THOMBOS UNSP DEEP VN UNSP LOWER EXTREMITY Status: Acute Priority: High Current Visit: Yes Qualifiers: DVT location: lower extremity Affected thrombotic vein of extremity: unspecified lower extremity distal vein Chronicity: acute Laterality: left Qualified Code(s): I82.4Z2 - Acute embolism and thrombosis of unspecified deep veins of left distal lower extremity (2) Hypernatremia SNOMED Code(s): 25347124 Code(s): E87.0 - HYPEROSMOLALITY AND HYPERNATREMIA Status: Acute Priority : Medium Current Visit: Yes (3) Oral thrush SNOMED Code(s): 10721727 Code(s): B37.0 - CANDIDAL STOMATITIS Status: Acute Priority: Medium Current Visit: Yes (4) Pulmonary emboli SNOMED Code(s): 74972609 Code(s): I26.99 - OTHER PULMONARY EMBOLISM WITHOUT ACUTE COR PULMONALE Status: Acute Priority: High Current Visit: Yes Qualifiers: Pulmonary embolism type: other Chronicity: acute Acute cor pulmonale presence: without acute cor pulmonale Qualified Code(s): I26.99 - Other pulmonary embolism without acute cor pulmonale (5) Urinary tract infection SNOMED Code(s): 58707930 Code(s): N39.0 - URINARY TRACT INFECTION, SITE NOT SPECIFIED Status: Acute Priority: High Current Visit: No Qualifiers: Urinary tract infection type: acute cystitis Hematuria presence: without hematuria Qualified Code(s): N30.00 - Acute cystitis without hematuria (6) Acute renal injury SNOMED Code(s): 46876146 Code(s): N17.9 - ACUTE KIDNEY FAILURE, UNSPECIFIED Status: Resolved Priority: Medium Current Visit: Yes (7) Hypokalemia SNOMED Code(s): 16252324 Code(s): E87.6 - HYPOKALEMIA Status: Resolved Priority: Medium Current Visit: Yes - Problem List Review Problem List Initiated/Reviewed/Updated: Yes - My Orders Last 24 Hours: My Active Orders 09/30/17 05:11 BASIC METABOLIC PANEL,BMP [CHEM] AM CBC WITH AUTO DIFF [HEME] AM CRP [C-REACTIVE PROTEIN] [CHEM] AM MAGNESIUM [CHEM] AM - Plan Plan:: I/P: Acute: DVT -Left lower leg swelling and erythema -No prior blood thinners -WBC 16.04--> 7.02-->7.72-->6.04 -INR 0.87 in ED -->0.96, APPT 24 in ED -Very sedimentary as son reports 6 month decline, dementia -Lower extremity US (09/26/16) - diffuse deep venous thrombosis -Receiving lovenox 60mg BID - hold starting 09/26/16 PM -Begin Eliquis BID PE -Oxygen saturations at 90% in ED -->97; In low to mid 90's throughout day while sleeping -D-dimer 8.75 -CTA shows RLL PE -Lovenox switching to Eliquis as above -Monitor Hypernatremia -Unable to hat lacer any mental status change due to severe dementia -Na 151 in ED -->156-->157-->148-->149 -Switch fluids to D5W, slow infusion-->150ml infusion over 6 hrs tonight -Will wait for labs in AM to adjust further - D5W at 50Ml -Monitor glucose Oral Thrush, improving -Son reports recent onset of white coating on tongue and halitosis -Magic mouthwash -Monitor UTI, improving -Son reports foul smelling urine -Risk factor: advance dementia, fecal and urinary incontinence -WBC 16.04-->11.47-->7.02 -CRP 16.3-->11.7-->7.4 -UA in ED not impressive but does show "many bacteria." -Urine culture - gram negative rods -Sensitivities obtained -Rocephin 1gm Q24; Discontinue and switch to PO Keflex Resolved: Acute renal injury -Baseline from prior visits shows creatinine of 0.9 and eGFR >60 -Creatinine 1.7-->1.1-->0.9; BUN 55-->47-->31; eGFR 29-->48--> greater than 60 -Fluids as ordered -Pharmacy to renally dose medications -Avoid nephrotoxic drugs Hypokalemia -IV potassium replacement -Continue to monitor Chronic: Constipation Fecal incontinence Urinary incontinence Alzheimers disease Plan: CM/SW for discharge planning - Home health vs. SNF vs. rehab stay - son requesting discharge home with him and HH PT Other orders as indicated above Routine AM labs Home medications as ordered Liquid diet as son reports pt. only able to tolerate liquids Dietary consult Code status: Full code. Her PCP is Sosa Valerio, Nurse practitioner, in [place]. LOS>96 hours, responding to anticoagulation
[2017-09-29] MEDS: risperiDONE 0.5 MG Tab PO SCH (17:22)
[2017-09-29] MEDS ORDERED: Dextrose 5% in Water 1,000 ML IV SCH (18:00)
[2017-09-30] MEDS: Cephalexin 500 MG Cap PO SCH (05:37)
[2017-09-30] MEDS: Apixaban 5 MG Tab PO SCH (09:31)
--- NOTE | 2017-09-30 10:13 | PCM.DCSUM1 ---
<Mary Barraza - Last Filed: 09/30/17 11:08> Discharge Summary - Discharge Data Discharge Date: 09/30/17 Discharge Disposition: Home, Self-Care 01 Condition: Good - Patient Summary/Data Consults: Consultations 09/26/17 08:00 PT Evaluation and Treatment [CONS] Routine 09/26/17 13:34 Consult to Dietary [Consult to Director Bioinformatics] [CONS] Routine - Discharge Plan Prescriptions/Med Rec: Apixaban [Eliquis] 10 mg PO BID #16 tablet Apixaban [Eliquis] 5 mg PO BID #60 tablet Cephalexin [IJD: Cephalexin] 500 mg PO Q12H #14 capsule Home Medications: Home Meds Memantine HCl/Donepezil HCl [Namzaric 28 mg-10 mg Capsule] 1 each PO DAILY 04/22 [History] risperiDONE [Risperdal] 0.5 mg PO 1800 04/22/17 [History] Apixaban [Eliquis] 5 mg PO BID #60 tablet 09/30/17 [Rx] Apixaban [Eliquis] 10 mg PO BID #16 tablet 09/30/17 [Rx] Cephalexin [IJD: Cephalexin] 500 mg PO Q12H #14 capsule 09/30/17 [Rx] Patient Handouts: Pulmonary Embolism, Apixaban oral tablets Forms: ED Department Discharge Referrals: Sosa Valerio, [facility] [Primary Care Provider] - (Please make an appointment to follow-up in 7-10 days.) - General Info Date of Service: 09/25/17 - Patient Data Vitals - Most Recent: Last Vital Signs Temp 36.9 C 09/30/17 05:44 Pulse 68 09/30/17 05:44 Resp 18 09/30/17 05:44 BP 123/85 09/30/17 05:44 Pulse Ox 100 09/30/17 05:44 Weight - Most Recent: 134 lb 3 oz I&O - Last 24 hours: Intake & Output 09/29/17 09/30/17 09/30/17 22:59 06:59 14:59 Intake Total 120 100 Output Total 4 Balance 116 100 Lab Results - Last 24 hrs: Laboratory Results - last 24 hr 09/30/17 09/30/17 Range/Units 07:05 07:05 WBC 8.07 (3.98-10.04) K/mm3 RBC 4.05 (3.98-5.22) M/mm3 Hgb 10.6 L (11.2-15.7) gm/L Hct 35.2 (34.1-44.9) % MCV 86.9 (79.4-94.8) fl MCH 26.2 (25.6-32.2) pg MCHC 30.1 L (32.2-35.5) g/dl RDW Std Deviation 46.8 H (36.4-46.3) fL Plt Count 264 (182-369) K/mm3 MPV 9.7 (9.4-12.3) fl Neut % (Auto) 78.0 H (34.0-71.1) % Lymph % (Auto) 10.0 L (19.3-51.7) % [place] % (Auto) 9.3 (4.7-12.5) % Eos % (Auto) 1.4 (0.7-5.8) Baso % (Auto) 0.1 (0.1-1.2) % Neut # (Auto) 6.29 H (1.56-6.13) K/mm3 Lymph # (Auto) 0.81 L (1.18-3.74) K/mm3 [place] # (Auto) 0.75 H (0.24-0.36) K/mm3 Eos # (Auto) 0.11 (0.04-0.36) K/mm3 Baso # (Auto) 0.01 (0.01-0.08) K/mm3 Sodium 142 (136-145) mEq/L Potassium 3.9 (3.5-5.1) mEq/L Chloride 111 H (98-107) mEq/L Carbon Dioxide 26 (21-32) mEq/L Anion Gap 8.9 (5-15) BUN 13 (7-18) mg/dL Creatinine 0.8 (0.55-1.02) mg/dL Est Cr Clr Drug Dosing 46.91 mL/min Estimated GFR (MDRD) > 60 (>60) mL/min BUN/Creatinine Ratio 16.3 (14-18) Glucose 121 H (83-115) mg/dL Calcium 9.2 (8.5-10.1) mg/dL Magnesium 2.1 (1.8-2.4) mg/dl C-Reactive Protein 2.9 H* (<1.0) mg/dL Med Orders - Current: Current Medications Apixaban (Eliquis) 10 mg PO BID [facility] Stop: 10/03/17 21:01 Last Admin: 09/30/17 09:31 Dose: 10 mg Apixaban (Eliquis) 5 mg PO BID [facility] Cephalexin (Keflex) 500 mg PO Q12H [facility] Last Admin: 09/30/17 05:37 Dose: 500 mg Diphenhydr/Magaldrate/Simeth/Lidoca (First-Mouthwash Blm Susp) 30 ml PO ASDIRECTED PRN PRN Reason: Other Last Admin: 09/28/17 08:14 Dose: 30 ml Dextrose/Water (Dextrose 5% In Water) 1,000 mls @ 50 mls/hr IV ASDIRECTED [facility] Last Admin: 09/29/17 19:02 Dose: 50 mls/hr Namzaric 28 Mg-10 Mg (Capsule) 0 each PO DAILY [facility] Last Admin: 09/30/17 09:35 Dose: 1 each Risperidone (Risperidal) 0.5 mg PO DAILY@1800 [facility] Last Admin: 09/29/17 17:22 Dose: 0.5 mg Sodium Chloride (Saline Flush) 10 ml FLUSH ASDIRECTED PRN PRN Reason: Keep Vein Open Last Admin: 09/25/17 19:04 Dose: 10 ml Temazepam (Restoril) 7.5 mg PO BEDTIME PRN PRN Reason: Sleep Last Admin: 09/26/17 21:42 Dose: 7.5 mg Discontinued Medications Apixaban (Eliquis) 2.5 mg PO BID [facility] Last Admin: 09/27/17 09:25 Dose: 2.5 mg Apixaban (Eliquis) 5 mg PO BID [facility] Last Admin: 09/28/17 08:14 Dose: 5 mg Enoxaparin Sodium (Lovenox) 60 mg SUBCUT Q12H [facility] Last Admin: 09/26/17 00:11 Dose: 60 mg Enoxaparin Sodium (Lovenox) 60 mg SUBCUT BID [facility] Last Admin: 09/26/17 20:39 Dose: Not Given Sodium Chloride (Normal Saline) 1,000 mls @ 100 mls/hr IV ONETIME ONE Stop: 09/26/17 03:30 Last Admin: 09/25/17 19:03 Dose: 100 mls/hr Sodium Chloride (Normal Saline) 100 mls @ [facility] Last Admin: 09/25/17 18:37 Dose: 60 mls/hr Levofloxacin/Dextrose 500 mg/ (Premix) 100 mls @ 100 mls/hr IV ONETIME ONE Stop: 09/25/17 20:34 Last Admin: 09/25/17 20:34 Dose: Not Given Ceftriaxone Sodium 2 gm/ (Sodium Chloride) 100 mls @ 200 mls/hr IV ONETIME ONE Stop: 09/25/17 20:13 Last Admin: 09/25/17 19:51 Dose: 200 mls/hr Sodium Chloride (Normal Saline) 1,000 mls @ 75 [facility] Last Admin: 09/26/17 18:05 Dose: 75 mls/hr Ceftriaxone Sodium 1 gm/ (Sodium Chloride) 100 mls @ 200 mls/hr IV Q24H [facility] Last Admin: 09/26/17 20:36 Dose: 200 mls/hr Dextrose/Water (Dextrose 5% In Water) 1,000 mls @ 75 [facility]ls[facility] Last Admin: 09/27/17 01:21 Dose: 75 mls/hr Dextrose/Water (Dextrose 5% In Water) 1,000 mls @ [facility] Stop: 09/27/17 21:30 Last Admin: 09/27/17 15:15 Dose: 150 mls/hr Potassium Chloride 10 meq/ (Premix) 100 mls @ 100 mls/hr IV Q1H [facility] Stop: 09/27/17 20:59 Last Admin: 09/27/17 21:53 Dose: 100 mls/hr Iopamidol (Isovue-370 (76%)) 100 ml IVPUSH ONETIME ONE Stop: 09/25/17 17:42 Last Admin: 09/25/17 18:37 Dose: 100 ml Magnesium Hydroxide (Milk Of Magnesia) 30 ml PO ONETIME ONE Stop: 09/26/17 21:15 Last Admin: 09/26/17 21:42 Dose: 30 ml Sodium Chloride (Saline Flush) 10 ml FLUSH ONETIME ONE Stop: 09/25/17 17:42 Last Admin: 09/25/17 18:37 Dose: 10 ml *Q Meaningful Use (DIS) - VTE *Q VTE Criteria *Q: - Stroke *Q Stroke Criteria *Q: - AMI *Q AMI Criteria *Q: <Sandra Coreas - Last Filed: 10/10/17 11:23> Discharge Summary - Hospital Course Free Text/Narrative:: 76 year old female with PMH of Alzheimers dementia presents with acute on chronic change. Recently has had stronger smelling urine, and was brought for possible UTI. Patient has been found to have an elevated D dimer, a CTA of the thorax documented bilateral PEs. She will be started on lovenox until the final decision has been made for anticoagulation. A Venous doppler will be scheduled of the E. - Discharge Diagnosis/Problem(s) (1) Pulmonary emboli SNOMED Code(s): 68680043 ICD Code: I26.99 - OTHER PULMONARY EMBOLISM WITHOUT ACUTE COR PULMONALE Status: Acute Priority: High Qualifiers: Pulmonary embolism type: other Chronicity: acute Acute cor pulmonale presence: without acute cor pulmonale Qualified Code(s): I26.99 - Other pulmonary embolism without acute cor pulmonale (2) DVT (deep venous thrombosis) SNOMED Code(s): 703339514 ICD Code: I82.409 - ACUTE EMBOLISM AND THOMBOS UNSP DEEP VN UNSP LOWER EXTREMITY Status: Acute Priority: High Qualifiers: DVT location: lower extremity Affected thrombotic vein of extremity: unspecified lower extremity distal vein Chronicity: acute Laterality: left Qualified Code(s): I82.4Z2 - Acute embolism and thrombosis of unspecified deep veins of left distal lower extremity (3) Hypernatremia SNOMED Code(s): 94700305 ICD Code: E87.0 - HYPEROSMOLALITY AND HYPERNATREMIA Status: Acute Priority: Medium (4) Oral thrush SNOMED Code(s): 93186453 ICD Code: B37.0 - CANDIDAL STOMATITIS Status: Acute Priority: Medium (5) Urinary tract infection SNOMED Code(s): 62462274 ICD Code: N39.0 - URINARY TRACT INFECTION, SITE NOT SPECIFIED Status: Acute Priority: High Qualifiers: Urinary tract infection type: acute cystitis Hematuria presence: without hematuria Qualified Code(s): N30.00 - Acute cystitis without hematuria (6) Acute renal injury SNOMED Code(s): 58422190 ICD Code: N17.9 - ACUTE KIDNEY FAILURE, UNSPECIFIED Status: Resolved Priority: Medium (7) Hypokalemia SNOMED Code(s): 33840562 ICD Code: E87.6 - HYPOKALEMIA Status: Resolved Priority: Medium (8) Bronchitis SNOMED Code(s): 59673372 ICD Code: J40 - BRONCHITIS, NOT SPECIFIED ACUTE OR CHRONIC Status: Acute - Patient Summary/Data Operative Procedure(s) Performed: None Complications: None Consults: Consultations 09/26/17 08:00 PT Evaluation and Treatment [CONS] Routine 09/26/17 13:34 Consult to Dietary [Consult to Director Bioinformatics] [CONS] Routine Labs Pending at D/C: None Recommended Follow-up Testing/Procedures: Follow up with PCP within one week of discharge Planned Operative Procedure(s) after DC: None Hospital Course: I/P: Acute: DVT -Left lower leg swelling and erythema -No prior blood thinners -WBC 16.04--> 7.02-->7.72-->6.04 -INR 0.87 in ED -->0.96, APPT 24 in ED -Very sedimentary as son reports 6 month decline, dementia -Lower extremity US (09/26/16) - diffuse deep venous thrombosis -Receiving lovenox 60mg BID - hold starting 09/26/16 PM -Begin Eliquis BID PE -Oxygen saturations at 90% in ED -->97; In low to mid 90's throughout day while sleeping -D-dimer 8.75 -CTA shows RLL PE -Lovenox switching to Eliquis as above -Monitor Hypernatremia -Unable to team primary care physician any mental status change due to severe dementia -Na 151 in ED -->156-->157-->148-->149 -Switch fluids to D5W, slow infusion-->150ml infusion over 6 hrs tonight -Will wait for labs in AM to adjust further - D5W at 50Ml -Monitor glucose Oral Thrush, improving -Son reports recent onset of white coating on tongue and halitosis -Magic mouthwash -Monitor UTI, improving -Son reports foul smelling urine -Risk factor: advance dementia, fecal and urinary incontinence -WBC 16.04-->11.47-->7.02 -CRP 16.3-->11.7-->7.4 -UA in ED not impressive but does show "many bacteria." -Urine culture - gram negative rods -Sensitivities obtained -Rocephin 1gm Q24; Discontinue and switch to PO Keflex Resolved: Acute renal injury -Baseline from prior visits shows creatinine of 0.9 and eGFR >60 -Creatinine 1.7-->1.1-->0.9; BUN 55-->47-->31; eGFR 29-->48--> greater than 60 -Fluids as ordered -Pharmacy to renally dose medications -Avoid nephrotoxic drugs Hypokalemia -IV potassium replacement -Continue to monitor Chronic: Constipation Fecal incontinence Urinary incontinence Alzheimers disease Plan: CM/SW for discharge planning - Home health vs. SNF vs. rehab stay - son requesting discharge home with him and HH PT Other orders as indicated above Routine AM labs Home medications as ordered Liquid diet as son reports pt. only able to tolerate liquids Dietary consult Code status: Full code. Her PCP is Sosa Valerio, Nurse practitioner, in [place]. LOS>96 hours, responding to anticoagulation - Patient Instructions Activity: As Tolerated Driving: Do Not Drive Showering/Bathing: May Shower Notify Provider of: Fever, Increased Pain, Swelling and Redness, Nausea and/or Vomiting - Discharge Summary/Plan Comment DC Time >30 min.: Yes (45 min) - Patient Data Vitals - Most Recent: Last Vital Signs Temp 98.1 F 09/30/17 10:57 Pulse 89 09/30/17 10:57 Resp 17 09/30/17 10:57 BP 120/68 09/30/17 10:54 Pulse Ox 98 09/30/17 10:57 Med Orders - Current: Current Medications Discontinued Medications Apixaban (Eliquis) 2.5 mg PO BID [facility] Last Admin: 09/27/17 09:25 Dose: 2.5 mg Apixaban (Eliquis) 10 mg PO BID [facility] Stop: 10/03/17 21:01 Last Admin: 09/30/17 09:31 Dose: 10 mg Apixaban (Eliquis) 5 mg PO BID [facility] Last Admin: 09/28/17 08:14 Dose: 5 mg Apixaban (Eliquis) 5 mg PO BID [facility] Cephalexin (Keflex) 500 mg PO Q12H [facility] Last Admin: 09/30/17 05:37 Dose: 500 mg Diphenhydr/Magaldrate/Simeth/Lidoca (First-Mouthwash Blm Susp) 30 ml PO ASDIRECTED PRN PRN Reason: Other Last Admin: 09/28/17 08:14 Dose: 30 ml Enoxaparin Sodium (Lovenox) 60 mg SUBCUT Q12H [facility] Last Admin: 09/26/17 00:11 Dose: 60 mg Enoxaparin Sodium (Lovenox) 60 mg SUBCUT BID [facility] Last Admin: 09/26/17 20:39 Dose: Not Given Sodium Chloride (Normal Saline) 1,000 mls @ 100 mls/hr IV ONETIME ONE Stop: 09/26/17 03:30 Last Admin: 09/25/17 19:03 Dose: 100 mls/hr Sodium Chloride (Normal Saline) 100 mls @ 60 mls/hr IV ASDIRECTED [facility] Last Admin: 09/25/17 18:37 Dose: 60 mls/hr Levofloxacin/Dextrose 500 mg/ (Premix) 100 mls @ 100 mls/hr IV ONETIME ONE Stop: 09/25/17 20:34 Last Admin: 09/25/17 20:34 Dose: Not Given Ceftriaxone Sodium 2 gm/ (Sodium Chloride) 100 mls @ 200 mls/hr IV ONETIME ONE Stop: 09/25/17 20:13 Last Admin: 09/25/17 19:51 Dose: 200 mls/hr Sodium Chloride (Normal Saline) 1,000 mls @ 75 mls/hr IV ASDIRECTED [facility] Last Admin: 09/26/17 18:05 Dose: 75 mls/hr Ceftriaxone Sodium 1 gm/ (Sodium Chloride) 100 mls @ 200 mls/hr IV Q24H [facility] Last Admin: 09/26/17 20:36 Dose: 200 mls/hr Dextrose/Water (Dextrose 5% In Water) 1,000 mls @ 75 mls/hr IV ASDIRECTED [facility] Last Admin: 09/27/17 01:21 Dose: 75 mls/hr Dextrose/Water (Dextrose 5% In Water) 1,000 mls @ 200 mls/hr IV ASDIRECTED [facility] Stop: 09/27/17 21:30 Last Admin: 01/03/18 15:15 Dose: 150 mls/hr Potassium Chloride 10 meq/ (Premix) 100 mls @ 100 mls/hr IV Q1H [facility] Stop: 09/27/17 20:59 Last Admin: 09/27/17 21:53 Dose: 100 mls/hr Dextrose/Water (Dextrose 5% In Water) 1,000 mls @ 50 mls/hr IV ASDIRECTED [facility] Last Admin: 09/29/17 19:02 Dose: 50 mls/hr Iopamidol (Isovue-370 (76%)) 100 ml IVPUSH ONETIME ONE Stop: 09/25/17 17:42 Last Admin: 09/25/17 18:37 Dose: 100 ml Magnesium Hydroxide (Milk Of Magnesia) 30 ml PO ONETIME ONE Stop: 09/26/17 21:15 Last Admin: 09/26/17 21:42 Dose: 30 ml Namzaric 28 Mg-10 Mg (Capsule) 0 each PO DAILY [facility] Last Admin: 09/30/17 09:35 Dose: 1 each Risperidone (Risperidal) 0.5 mg PO DAILY@1800 [facility] Last Admin: 09/29/17 17:22 Dose: 0.5 mg Sodium Chloride (Saline Flush) 10 ml FLUSH ASDIRECTED PRN PRN Reason: Keep Vein Open Last Admin: 09/25/17 19:04 Dose: 10 ml Sodium Chloride (Saline Flush) 10 ml FLUSH ONETIME ONE Stop: 09/25/17 17:42 Last Admin: 09/25/17 18:37 Dose: 10 ml Temazepam (Restoril) 7.5 mg PO BEDTIME PRN PRN Reason: Sleep Last Admin: 09/26/17 21:42 Dose: 7.5 mg *Q Meaningful Use (DIS) - VTE *Q VTE Criteria *Q: - Stroke *Q Stroke Criteria *Q: - AMI *Q AMI Criteria *Q:
[2017-09-30 11:01] VITALS: BP 120/68
[2017-10-04] MEDS ORDERED: Apixaban 5 MG Tab PO SCH (09:00)
== END 2017-09-30 12:57 | disposition home or self-care (01) | DRG 641 ==
LOC: JD.ED 14:10 → JD.MS 21:09
PROVIDERS: ADMIT Internal Medicine Cardiovascular Disease; ATTEND Internal Medicine Cardiovascular Disease
DX: I26.99 Other pulmonary embolism without acute cor pulmonale (principal); E87.1 Hypo-osmolality and hyponatremia; E87.0 Hyperosmolality and hypernatremia; B37.0 Candidal stomatitis; I82.4Z2 Acute embolism and thrombosis of unspecified deep veins of left distal lower extremity; N39.0 Urinary tract infection, site not specified; N17.9 Acute kidney failure, unspecified; G30.9 Alzheimer's disease, unspecified; F02.80 Dementia in other diseases classified elsewhere, unspecified severity, without behavioral disturbance, psychotic disturbance, mood disturbance, and anxiety; K59.09 Other constipation; R32 Unspecified urinary incontinence; R15.9 Full incontinence of feces; Z66 Do not resuscitate; R53.1 Weakness; E87.6 Hypokalemia; Z87.891 Personal history of nicotine dependence; Z79.899 Other long term (current) drug therapy; R06.82 Tachypnea, not elsewhere classified
CPT/HCPCS: 36415; 71275; 80053; 81001; 83605; 83735; 83880; 84484; 85025; 85379; 85610; 85730; 86140; 87040 ×2; 87086; 87088; 87186; 93005; 96361; 96365; 99285; J0696; J7030 ×2; J7040; J7050 ×2; P9612; Q9967; 80048; 93010; 93970; 93970-26; 97110-GP; 97161-GP; 97530-GP; 99284; A9270-GY; J1650; J3480; J7060

== ENCOUNTER 2017-12-10 18:54 | Emergency (ER) | payer MEDICARE, OTHER ==
[2017-12-10 19:04] VITALS: BP 107/79
[2017-12-10] MEDS ORDERED: Sodium Chloride 0.9% 10 ML Syringe FLUSH PRN (19:18)
--- NOTE | 2017-12-10 19:56 | EDM.PDOC ---
ED HPI GENERAL MEDICAL PROBLEM - General Chief Complaint: Neurological Problem Stated Complaint: [facility] Time Seen by Provider: 12/10/17 18:58 Source of Information: Reports: EMS, Family, Correction Records History Limitations: Reports: Altered Mental Status - History of Present Illness INITIAL COMMENTS - FREE TEXT/NARRATIVE: The patient is a resident [facility]. She was in her wheel chair and she fell forward and hit her head. She had no LOC and she is acting her normal. She is on eliquis 2 times per day for a PE. Her son is with her and he says she has been dealing with UTIs for awhile. She will soil herself and within a few days she will have another one and she goes on antibiotics. She just stopped her last course last week. She has a skin tear to her left forearm and an area of ecchymosis to the upper forehead. After she fell she did have a cough and she coughed up some thick darker mucus. Onset: Sudden Duration: Hour(s): Location: Reports: Head, Upper Extremity, Left (Forearm) Severity: Moderate Improves with: Reports: None Worsens with: Reports: None Context: Reports: Activity (She fell forward) Associated Symptoms: Reports: No Other Symptoms - Related Data Allergies Allergy/AdvReac Type Severity Reaction Status Date / Time No Known Allergies Allergy Verified 09/26/17 01:18 Home Meds: Home Meds Memantine HCl/Donepezil HCl [Namzaric 28 mg-10 mg Capsule] 1 each PO DAILY 04/22 [History] risperiDONE [Risperdal] 0.5 mg PO 1900 04/22/17 [History] Apixaban [Eliquis] 5 mg PO BID #60 tablet 09/30/17 [Rx] Past Medical History HEENT History: Reports: Other (See Below) Other HEENT History: unable to eat solid foods, drooling Cardiovascular History: Reports: Other (See Below) Other Cardiovascular History: blood clot to leg Respiratory History: Reports: PE Gastrointestinal History: Reports: Chronic Constipation, Fecal Incontinence Genitourinary History: Reports: Urinary Incontinence Musculoskeletal History: Reports: Other (See Below) Other Musculoskeletal History: unable to walk, is w/c dependent 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 Psychiatric History: Reports: Alzheimers Disease Oncologic (Cancer) History: Reports: Other (See Below) 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" Dermatologic History: Reports: Other (See Below) Other Dermatologic History: blisters to right shoulder, eczema type rash to left shoulder - Infectious Disease History Infectious Disease History: Reports: Influenza, Other (See Below) Other Infectious Disease History: unable to obtain - Past Surgical History Head Surgeries/Procedures: Reports: None HEENT Surgical History: Reports: None Respiratory Surgical History: Reports: None GI Surgical History: Reports: None Female Surgical History: Reports: None Neurological Surgical History: Reports: None Musculoskeletal Surgical History: Reports: None Oncologic Surgical History: Reports: None Dermatological Surgical History: Reports: None Social & Family History - Family History Family Medical History: Noncontributory - Tobacco Use Smoking Status *Q: Never Smoker Years of Tobacco use: 30 Packs/Tins Daily: 2 Used Tobacco, but Quit: Yes Month/Year Tobacco Last Used: 20 years ago Second Hand Smoke Exposure: No - Caffeine Use Caffeine Use: Reports: None Other Caffeine Use: pt is on full liquid protein drinks - Recreational Drug Use Recreational Drug Use: No ED ROS GENERAL - Review of Systems Review Of Systems: Unable To Obtain - Physical Exam Exam: See Below Exam Limited By: Altered Mental Status (Normal for the patient) General Appearance: Alert, No Apparent Distress Ears: Normal External Exam Nose: Normal Inspection Head Exam: Other (Ecchymosis to the upper forehead at the hairline) Neck: Normal Inspection, Supple, Non-Tender Respiratory/Chest: No Respiratory Distress, Lungs Clear, Normal Breath Sounds Cardiovascular: Regular Rate, Rhythm, No Edema, No Murmur GI/Abdominal: Soft, Non-Tender, No Organomegaly, No Mass Neuro Exam (Abbreviated): Alert, No Motor/Sensory Deficits Extremities: Other (Skin tear to the left forearm) Course - Vital Signs Last Recorded V/S: Last Vital Signs Temp 97.5 F 12/10/17 19:03 Pulse 117 H 12/10/17 19:03 Resp 20 12/10/17 19:03 BP 107/79 12/10/17 19:03 Pulse Ox 95 12/10/17 19:03 - Orders/Labs/Meds Orders: Active Orders 24 hr Category Date Time Status Cardiac Monitoring [RC] . DIRECTED Care 12/10/17 19:18 Active Peripheral IV Care [RC] . DIRECTED Care 12/10/17 19:18 Active Cervical Spine wo Cont [CT] Stat Exams 12/10/17 19:17 Taken Chest 1V Frontal [CR] Stat Exams 12/10/17 19:18 Taken Head wo Cont [CT] Stat Exams 12/10/17 19:17 Taken Sodium Chloride 0.9% [Saline Flush] Med 12/10/17 19:18 Active 10 ml FLUSH ASDIRECTED PRN Peripheral IV Insertion Adult [OM.PC] Stat Oth 12/10/17 19:18 Ordered Medication Orders Sodium Chloride (Saline Flush) 10 ml FLUSH ASDIRECTED PRN PRN Reason: Keep Vein Open Last Admin: 12/10/17 19:22 Dose: 10 ml Labs: Laboratory Tests 12/10/17 12/10/17 12/10/17 Range/Units 19:30 19:55 19:55 WBC 12.64 H (3.98-10.04) K/mm3 RBC 4.22 (3.98-5.22) M/mm3 Hgb 10.4 L (11.2-15.7) gm/L Hct 34.4 (34.1-44.9) % MCV 81.5 (79.4-94.8) fl MCH 24.6 L (25.6-32.2) pg MCHC 30.2 L (32.2-35.5) g/dl RDW Std Deviation 44.6 (36.4-46.3) fL Plt Count 317 (182-369) K/mm3 MPV 10.5 (9.4-12.3) fl Neut % (Auto) 85.3 H (34.0-71.1) % Lymph % (Auto) 5.9 L (19.3-51.7) % [place] % (Auto) 8.5 (4.7-12.5) % Eos % (Auto) 0 L (0.7-5.8) Baso % (Auto) 0.1 (0.1-1.2) % Neut # (Auto) 10.78 H (1.56-6.13) K/mm3 Lymph # (Auto) 0.75 L (1.18-3.74) K/mm3 [place] # (Auto) 1.08 H (0.24-0.36) K/mm3 Eos # (Auto) 0.00 L (0.04-0.36) K/mm3 Baso # (Auto) 0.01 (0.01-0.08) K/mm3 Manual Slide Review Abnormal smear Sodium 144 (136-145) mEq/L Potassium 4.4 (3.5-5.1) mEq/L Chloride 107 (98-107) mEq/L Carbon Dioxide 30 (21-32) mEq/L Anion Gap 11.4 (5-15) BUN 28 H (7-18) mg/dL Creatinine 1.2 H (0.55-1.02) mg/dL Est Cr Clr Drug Dosing 33.90 mL/min Estimated GFR (MDRD) 44 (>60) mL/min BUN/Creatinine Ratio 23.3 H (14-18) Glucose 121 H (83-115) mg/dL Calcium 9.7 (8.5-10.1) mg/dL Total Bilirubin 0.3 (0.2-1.0) mg/dL AST 14 L (15-37) U/L ALT 11 L (14-59) U/L Alkaline Phosphatase 80 (46-116) U/L Total Protein 6.5 (6.4-8.2) g/dl Albumin 2.7 L (3.4-5.0) g/dl Globulin 3.8 gm/dL Albumin/Globulin Ratio 0.7 L (1-2) Urine Color Yellow (Yellow) Urine Appearance Clear (Clear) Urine pH 6.0 (5.0-8.0) Ur Specific [place] 1.020 (1.005-1.030) Urine Protein Trace H (Negative) Urine Glucose (UA) Negative (Negative) Urine Ketones Negative (Negative) Urine Occult Blood Negative (Negative) Urine Nitrite Negative (Negative) Urine Bilirubin Negative (Negative) Urine Urobilinogen 0.2 (0.2-1.0) Ur Leukocyte Esterase Negative (Negative) Urine RBC Not seen (0-5) /hpf Urine WBC 0-5 (0-5) /hpf Ur Epithelial Cells 5-10 H (0-5) /hpf Urine Bacteria Not seen (FEW) /hpf Urine Mucus Not seen (FEW) /hpf Meds: Medications Generic Name Dose Route Start Last Admin Trade Name Freq PRN Reason Stop Dose Admin Sodium Chloride 10 ml 12/10/17 19:18 12/10/17 19:22 Saline Flush FLUSH 10 ml ASDIRECTED PRN Administration Keep Vein Open - Re-Assessments/Exams Free Text/Narrative Re-Assessment/Exam: 12/10/17 19:59 I ordered an IV saline lock, CT of her head and cervical spine, CXR, labs and a UA. 12/10/17 20:48 Her WBC is elevated at 12.64. Her creatinine is elevated at 1.2. Her glucose is elevated at 121. Her UA shows no UTI. Her CXR shows no infiltrate. The CT of her cervical spine shows no acute findings. The CT of her head shows no definite acute findings of an acute large territorial infarct. Small acute/ subacute infarct cannot be excluded in the setting of chronic microvascular ischemic changes. Consider MRI. The patient is doing good. I will discharge her home. Departure - Departure Time of Disposition: 20:55 Disposition: Home, Self-Care 01 Condition: Good Clinical Impression: Fall Qualifiers: Encounter type: initial encounter Qualified Code(s): W19.XXXA - Unspecified fall, initial encounter Contusion of forehead Qualifiers: Encounter type: initial encounter Qualified Code(s): S00.83XA - Contusion of other part of head, initial encounter - Discharge Information Referrals: Sosa Valerio [employer] [Primary Care Provider] - Forms: ED Department Discharge Additional Instructions: Take your medication as prescribed. Please return if Angie is worse. Follow up with your doctor in 1 week. - My Orders Last 24 Hours: My Active Orders 12/10/17 19:17 Cervical Spine wo Cont [CT] Stat Head wo Cont [CT] Stat 12/10/17 19:18 Cardiac Monitoring [RC] . DIRECTED Peripheral IV Care [RC] . DIRECTED Chest 1V Frontal [CR] Stat Sodium Chloride 0.9% [Saline Flush] 10 ml FLUSH ASDIRECTED PRN Peripheral IV Insertion Adult [OM.PC] Stat - Assessment/Plan Last 24 Hours: My Active Orders 12/10/17 19:17 Cervical Spine wo Cont [CT] Stat Head wo Cont [CT] Stat 12/10/17 19:18 Cardiac Monitoring [RC] . DIRECTED Peripheral IV Care [RC] . DIRECTED Chest 1V Frontal [CR] Stat Sodium Chloride 0.9% [Saline Flush] 10 ml FLUSH ASDIRECTED PRN Peripheral IV Insertion Adult [OM.PC] Stat
--- NOTE | 2017-12-11 10:02 | CR ---
Chest: Portable view of the chest was obtained. Comparison: Prior chest x-ray of 05/08/17. Heart size and mediastinum are within normal limits for portable technique. Lungs are clear. Bony structures are osteopenic. Impression: 1. Nothing acute is appreciated on portable chest x-ray. Diagnostic code #2
--- NOTE | 2017-12-11 10:02 | CT ---
Head CT Technique: Multiple axial sections through the brain were obtained. Intravenous contrast was not utilized. Comparison: Prior head CT exam of 05/08/17. Findings: Ventricles along with basal cisterns and sulci over the convexities are moderately prominent. Diminished density is noted within the periventricular white matter compatible with small vessel ischemic demyelination change. 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 Calcified meningioma is noted over the right frontal convexity which is stable. No acute calvarial abnormality is seen. Visualized sinuses are clear. Atherosclerotic calcification is seen within the carotid siphon. Impression: 1. Senescent change as noted above. 2. Old calcified right frontal meningioma which is stable. 3. No acute intracranial abnormality is identified. Diagnostic code #2 I agree with preliminary report issued by [facility] ([facility] preliminary report dictated on 12/10/17, 9:38 PM Central Time)
--- NOTE | 2017-12-11 10:02 | CT ---
CT cervical spine Technique: Multiple axial sections were obtained from above C1 through the bottom of T2. Reconstructed sagittal and coronal images were reviewed. Findings: Diffuse disc space narrowing noted at C3-C4 through C6-C7. Vertebral body heights are maintained. Mild diffuse posterior osteophytes are seen. Mild scattered anterior endplate osteophytes are seen. Degenerative change is seen throughout the uncovertebral joints. Degenerative change noted between the dens and anterior arch of C1. Multiple levels of neural foraminal stenosis are seen. Diffuse degenerative change within the apophyseal joints is noted. Bony structures are osteopenic. No acute fracture or abnormal subluxation is seen. Impression: 1. Diffuse degenerative change and osteopenia. 2. Nothing acute is appreciated on CT study of the cervical spine. Diagnostic code #2 I agree with preliminary report issued by [facility] ([facility] preliminary report dictated on 12/10/17, 9:43 PM Central Time)
== END 2017-12-10 21:15 | disposition home or self-care (01) ==
LOC: SUPCPDRO 18:54 → JD.ED 18:54
DX: S51.812A Laceration without foreign body of left forearm, initial encounter (principal); S00.83XA Contusion of other part of head, initial encounter; W05.0XXA Fall from non-moving wheelchair, initial encounter; G30.9 Alzheimer's disease, unspecified; F02.80 Dementia in other diseases classified elsewhere, unspecified severity, without behavioral disturbance, psychotic disturbance, mood disturbance, and anxiety; Z86.19 Personal history of other infectious and parasitic diseases; Z79.01 Long term (current) use of anticoagulants; Z79.899 Other long term (current) drug therapy
CPT/HCPCS: 36415; 70450; 71045; 72125; 80053; 81001; 85025; 99285; J7050; 99283

== ENCOUNTER 2019-01-12 14:47 | Emergency (ER) | payer MEDICARE, OTHER, MEDICAID ==
[2019-01-12 15:09] VITALS: BP 110/94
[2019-01-12] MEDS ORDERED: Sodium Chloride 0.9% 10 ML Syringe FLUSH PRN (15:33)
[2019-01-12] MEDS ORDERED: Sodium Chloride 0.9% 1,000 ML IV SCH (15:45)
--- NOTE | 2019-01-12 16:40 | CT ---
Head CT Technique: Multiple axial sections through the brain were obtained. Intravenous contrast was not utilized. Comparison: Previous head CT exam of 12/10/17. Findings: Ventricles along with basal cisterns and sulci over the convexities are moderately prominent. Diminished density noted within the periventricular white matter which is compatible with small vessel ischemic demyelination change. 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 Extra-axial calcification within the right frontal region is stable. No evidence of intracranial hemorrhage. No other abnormal parenchymal densities are seen. No evidence of mid line shift or mass effect. Bone window settings were reviewed which shows no acute calvarial abnormality. Visualized sinuses are clear. Impression: 1. Senescent change as noted above. Nothing acute is identified on noncontrast head CT exam. Diagnostic code #2
[2019-01-12] MEDS ORDERED: Sodium Chloride 0.9% 10 ML Syringe FLUSH ONE (17:39)
[2019-01-12] MEDS ORDERED: Iopamidol 755 Mg/ML 200 ML Bottle IV ONE (17:39)
[2019-01-12] MEDS ORDERED: Sodium Chloride 0.9% 100 ML IV SCH (17:45)
--- NOTE | 2019-01-12 18:20 | CT ---
CT chest Technique: Multiple axial sections chest were obtained. Intravenous contrast was utilized. Study has been performed as a pulmonary angiogram protocol. Comparison: Previous CT chest also performed as a pulmonary angiogram protocol dated 09/25/17. Findings: Pulmonary arteries are well-opacified. No filling defects are seen to indicate pulmonary embolism. Marked wall thickening is seen within the distal esophagus. Hiatal hernia appears to be present. Other portions of the visualized upper abdominal structures are within normal limits. No pericardial thickening is seen. Small lymph nodes are noted within the mediastinum which are felt to be within normal limits. Azygos lobe is present. Very minimal atelectasis or scarring is seen within the left base. Lungs otherwise are clear. Bone window settings were reviewed which shows no acute osseous abnormality. Scattered degenerative change is noted throughout the spine. Impression: 1. Marked wall thickening within the distal esophagus. Hiatal hernia is noted. Wall thickening could represent severe reflux esophagitis but esophageal carcinoma is a strong possibility. Some of this finding is seen on prior study but findings are felt to be increased from previous exam. Endoscopy is strongly recommended to further evaluate. 2. No findings of pulmonary embolism. 3. Other incidental findings. Diagnostic code #9
[2019-01-12] MEDS ORDERED: Pantoprazole 40 MG Vial IVPUSH ONE (19:14)
--- NOTE | 2019-01-12 19:20 | EDM.PDOC ---
ED HPI GENERAL MEDICAL PROBLEM - General Chief Complaint: General Stated Complaint: WEAK AND FATIGUE Time Seen by Provider: 01/12/19 15:10 Source of Information: Reports: Family History Limitations: Reports: Altered Mental Status - History of Present Illness INITIAL COMMENTS - FREE TEXT/NARRATIVE: The patient presents with her son for altered mental status and trouble swallowing and poor intake. The patient has progressive alzheimer's dementia and she cannot walk or eat on her own. She eats liquids. She will just spit out solids. She has had poor input the past couple days and she will spit out lots of phlegm at times. She has a productive sounding cough at times. She has no fever that her son can tell. She has no sores. She will get like this sometimes when she has a UTI. She is less responsive. She did fall out of her chair and hit her head a couple days ago. Onset: Gradual Duration: Day(s): Severity: Moderate Improves with: Reports: None Worsens with: Reports: None Associated Symptoms: Reports: Cough. Denies: Fever/Chills, Nausea/Vomiting, Shortness of Breath - Related Data Allergies Allergy/AdvReac Type Severity Reaction Status Date / Time No Known Allergies Allergy Verified 01/12/19 15:09 Home Meds: Home Meds Memantine HCl/Donepezil HCl [Namzaric 28 mg-10 mg Capsule] 1 each PO DAILY 04/22 [History] risperiDONE [Risperdal] 0.5 mg PO 1900 04/22/17 [History] Apixaban [Eliquis] 5 mg PO BID #60 tablet 09/30/17 [Rx] Past Medical History HEENT History: Reports: Other (See Below) Other HEENT History: unable to eat solid foods, drooling Cardiovascular History: Reports: Other (See Below) Other Cardiovascular History: blood clot to leg Respiratory History: Reports: PE Gastrointestinal History: Reports: Chronic Constipation, Fecal Incontinence Genitourinary History: Reports: Urinary Incontinence Musculoskeletal History: Reports: Other (See Below) Other Musculoskeletal History: unable to walk, is w/c dependent 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 Psychiatric History: Reports: Alzheimers Disease Oncologic (Cancer) History: Reports: Other (See Below) 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" Dermatologic History: Reports: Other (See Below) Other Dermatologic History: blisters to right shoulder, eczema type rash to left shoulder - Infectious Disease History Infectious Disease History: Reports: Influenza, Other (See Below) Other Infectious Disease History: unable to obtain - Past Surgical History Head Surgeries/Procedures: Reports: None HEENT Surgical History: Reports: None Respiratory Surgical History: Reports: None GI Surgical History: Reports: None Female Surgical History: Reports: None Neurological Surgical History: Reports: None Musculoskeletal Surgical History: Reports: None Oncologic Surgical History: Reports: None Dermatological Surgical History: Reports: None Social & Family History - Family History Family Medical History: Noncontributory - Tobacco Use Smoking Status *Q: Former Smoker Used Tobacco, but Quit: Yes Month/Year Tobacco Last Used: 09/1998 - Caffeine Use Caffeine Use: Reports: None Other Caffeine Use: pt is on full liquid protein drinks - Recreational Drug Use Recreational Drug Use: No ED ROS GENERAL - Review of Systems Review Of Systems: See Below Constitutional: Reports: No Symptoms HEENT: Reports: No Symptoms Respiratory: Reports: No Symptoms Cardiovascular: Reports: No Symptoms Endocrine: Reports: No Symptoms GI/Abdominal: Reports: Other (spitting up) ED EXAM, GENERAL - Physical Exam Exam: See Below Exam Limited By: No Limitations General Appearance: Alert, No Apparent Distress Ears: Normal External Exam Nose: Normal Inspection Head: Atraumatic Neck: Normal Inspection Respiratory/Chest: No Respiratory Distress, Lungs Clear, Normal Breath Sounds Cardiovascular: Regular Rate, Rhythm, No Edema, No Murmur GI/Abdominal: Soft, Non-Tender, No Organomegaly, No Mass Back Exam: Normal Inspection Extremities: Normal Inspection Course - Vital Signs Last Recorded V/S: Last Vital Signs Temp 97.7 F 01/12/19 15:02 Pulse 73 01/12/19 15:02 Resp 18 01/12/19 15:02 BP 110/94 H 01/12/19 15:02 Pulse Ox 97 01/12/19 15:02 - Orders/Labs/Meds Orders: Active Orders 24 hr Category Date Time Status Cardiac Monitoring [RC] . DIRECTED Care 01/12/19 15:33 Active Insert Kelley Catheter [Insert Urinary Catheter] [OM.PC] Care 01/12/19 16:30 Ordered Q24H Peripheral IV Care [RC] . DIRECTED Care 01/12/19 15:34 Active Urinary Catheter Assessment [RC] ASDIRECTED Care 01/12/19 16:27 Active Pantoprazole [ProTONIX IV] Med 01/12/19 19:14 Once 40 mg IVPUSH ONETIME ONE Sodium Chloride 0.9% [Normal Saline] 1,000 ml Med 01/12/19 15:45 Active IV .BOLUS Sodium Chloride 0.9% [Normal Saline] 100 ml Med 01/12/19 17:45 Active IV ASDIRECTED Sodium Chloride 0.9% [Saline Flush] Med 01/12/19 15:33 Active 10 ml FLUSH ASDIRECTED PRN Peripheral IV Insertion Adult [OM.PC] Stat Oth 01/12/19 15:33 Ordered Medication Orders Sodium Chloride (Normal Saline) 1,000 mls @ 1,000 mls/hr IV .BOLUS RAMON Last Admin: 01/12/19 15:59 Dose: 1,000 mls/hr Sodium Chloride (Normal Saline) 100 mls @ 60 mls/hr IV ASDIRECTED RAMON Last Admin: 01/12/19 17:47 Dose: 60 mls/hr Pantoprazole Sodium (Protonix Iv) 40 mg IVPUSH ONETIME ONE Stop: 01/12/19 19:15 Sodium Chloride (Saline Flush) 10 ml FLUSH ASDIRECTED PRN PRN Reason: Keep Vein Open Last Admin: 01/12/19 16:00 Dose: 10 ml Labs: Laboratory Tests 01/12/19 01/12/19 01/12/19 Range/Units 16:00 16:00 16:00 WBC 7.37 (3.98-10.04) K/mm3 RBC 4.99 (3.98-5.22) M/mm3 Hgb 13.8 D (11.2-15.7) gm/L Hct 43.7 (34.1-44.9) % MCV 87.6 (79.4-94.8) fl MCH 27.7 (25.6-32.2) pg MCHC 31.6 L (32.2-35.5) g/dl RDW Std Deviation 48.4 H (36.4-46.3) fL Plt Count 232 (182-369) K/mm3 MPV 10.9 (9.4-12.3) fl Neut % (Auto) 74.2 H (34.0-71.1) % Lymph % (Auto) 16.4 L (19.3-51.7) % Toombs % (Auto) 8.1 (4.7-12.5) % Eos % (Auto) 0.9 (0.7-5.8) Baso % (Auto) 0.1 (0.1-1.2) % Neut # (Auto) 5.46 (1.56-6.13) K/mm3 Lymph # (Auto) 1.21 (1.18-3.74) K/mm3 Toombs # (Auto) 0.60 H (0.24-0.36) K/mm3 Eos # (Auto) 0.07 (0.04-0.36) K/mm3 Baso # (Auto) 0.01 (0.01-0.08) K/mm3 D-Dimer, Quantitative 0.76 H (0.19-0.50) mg/L Sodium 143 (136-145) mEq/L Potassium 4.4 (3.5-5.1) mEq/L Chloride 107 (98-107) mEq/L Carbon Dioxide 30 (21-32) mEq/L Anion Gap 10.4 (5-15) BUN 18 (7-18) mg/dL Creatinine 1.1 H (0.55-1.02) mg/dL Est Cr Clr Drug Dosing 33.34 mL/min Estimated GFR (MDRD) 48 (>60) mL/min BUN/Creatinine Ratio 16.4 (14-18) Glucose 114 (83-115) mg/dL Calcium 10.4 H (8.5-10.1) mg/dL Total Bilirubin 0.6 (0.2-1.0) mg/dL AST 16 (15-37) U/L ALT 23 (14-59) U/L Alkaline Phosphatase 122 H (46-116) U/L Total Protein 6.9 (6.4-8.2) g/dl Albumin 3.4 (3.4-5.0) g/dl Globulin 3.5 gm/dL Albumin/Globulin Ratio 1.0 (1-2) Urine Color (Yellow) Urine Appearance (Clear) Urine pH (5.0-8.0) Ur Specific Fieldon (1.005-1.030) Urine Protein (Negative) Urine Glucose (UA) (Negative) Urine Ketones (Negative) Urine Occult Blood (Negative) Urine Nitrite (Negative) Urine Bilirubin (Negative) Urine Urobilinogen (0.2-1.0) Ur Leukocyte Esterase (Negative) Urine RBC (0-5) /hpf Urine WBC (0-5) /hpf Ur Squamous Epith Cells (0-5) /hpf Urine Bacteria (FEW) /hpf Urine Mucus (FEW) /hpf 01/12/19 Range/Units 16:32 WBC (3.98-10.04) K/mm3 RBC (3.98-5.22) M/mm3 Hgb (11.2-15.7) gm/L Hct (34.1-44.9) % MCV (79.4-94.8) fl MCH (25.6-32.2) pg MCHC (32.2-35.5) g/dl RDW Std Deviation (36.4-46.3) fL Plt Count (182-369) K/mm3 MPV (9.4-12.3) fl Neut % (Auto) (34.0-71.1) % Lymph % (Auto) (19.3-51.7) % Toombs % (Auto) (4.7-12.5) % Eos % (Auto) (0.7-5.8) Baso % (Auto) (0.1-1.2) % Neut # (Auto) (1.56-6.13) K/mm3 Lymph # (Auto) (1.18-3.74) K/mm3 Toombs # (Auto) (0.24-0.36) K/mm3 Eos # (Auto) (0.04-0.36) K/mm3 Baso # (Auto) (0.01-0.08) K/mm3 D-Dimer, Quantitative (0.19-0.50) mg/L Sodium (136-145) mEq/L Potassium (3.5-5.1) mEq/L Chloride (98-107) mEq/L Carbon Dioxide (21-32) mEq/L Anion Gap (5-15) BUN (7-18) mg/dL Creatinine (0.55-1.02) mg/dL Est Cr Clr Drug Dosing mL/min Estimated GFR (MDRD) (>60) mL/min BUN/Creatinine Ratio (14-18) Glucose (83-115) mg/dL Calcium (8.5-10.1) mg/dL Total Bilirubin (0.2-1.0) mg/dL AST (15-37) U/L ALT (14-59) U/L Alkaline Phosphatase (46-116) U/L Total Protein (6.4-8.2) g/dl Albumin (3.4-5.0) g/dl Globulin gm/dL Albumin/Globulin Ratio (1-2) Urine Color Yellow (Yellow) Urine Appearance Slt cloudy H (Clear) Urine pH 7.0 (5.0-8.0) Ur Specific Fieldon 1.020 (1.005-1.030) Urine Protein Trace H (Negative) Urine Glucose (UA) Negative (Negative) Urine Ketones Negative (Negative) Urine Occult Blood Negative (Negative) Urine Nitrite Negative (Negative) Urine Bilirubin Negative (Negative) Urine Urobilinogen 0.2 (0.2-1.0) Ur Leukocyte Esterase Negative (Negative) Urine RBC 0-5 (0-5) /hpf Urine WBC 0-5 (0-5) /hpf Ur Squamous Epith Cells 0-5 (0-5) /hpf Urine Bacteria Few H (FEW) /hpf Urine Mucus Moderate H (FEW) /hpf Meds: Medications Generic Name Dose Route Start Last Admin Trade Name Freq PRN Reason Stop Dose Admin Sodium Chloride 1,000 mls @ 1,000 mls/hr 01/12/19 15:45 01/12/19 15:59 Normal Saline IV 1,000 mls/hr .BOLUS RAMON Administration Sodium Chloride 100 mls @ 60 mls/hr 01/12/19 17:45 01/12/19 17:47 Normal Saline IV 60 mls/hr ASDIRECTED RAMON Administration Pantoprazole Sodium 40 mg 01/12/19 19:14 Protonix Iv IVPUSH 01/12/19 19:15 ONETIME ONE Sodium Chloride 10 ml 01/12/19 15:33 01/12/19 16:00 Saline Flush FLUSH 10 ml ASDIRECTED PRN Administration Keep Vein Open Discontinued Medications Generic Name Dose Route Start Last Admin Trade Name Freq PRN Reason Stop Dose Admin Iopamidol 60 ml 01/12/19 17:39 01/12/19 17:47 Isovue-370 (76%) IV 01/12/19 17:40 60 ml ONETIME ONE Administration Sodium Chloride 10 ml 01/12/19 17:39 01/12/19 17:47 Saline Flush FLUSH 01/12/19 17:40 10 ml ONETIME ONE Administration - Re-Assessments/Exams Free Text/Narrative Re-Assessment/Exam: 01/12/19 19:20 I ordered an IV NS 1L bolus, labs, and CT of her head. Her CBC looks good. Her creatinine was slightly elevated at 1.1. Her alk phos is elevated at 122. Her UA shows no UTI. Her D-dimer was elevated at 0.76. I ordered a CT angio of her chest. The CT shows marked wall thickening within the distal esophagus. Hiatal hernia is noted. Wall thickening could represent severe reflux esophagitis but esophageal carcinoma is a strong possibility. Some of this finding is seen on prior study but findings are felt to be increased from previous exam. Endoscopy is strongly recommended to further evaluate. No findings of pulmonary embolism. Other incidental findings. I will give her a dose of protonix here and get her on some prilosec. I will also have her follow up with Dr Cordova for EGD. Departure - Departure Time of Disposition: 19:25 Disposition: Home, Self-Care 01 Condition: Good Clinical Impression: Esophagitis - Discharge Information *PRESCRIPTION DRUG MONITORING PROGRAM REVIEWED*: Not Applicable *COPY OF PRESCRIPTION DRUG MONITORING REPORT IN PATIENT SANIA: Not Applicable Referrals: Sosa Valerio NP [Primary Care Provider] - 1 Week Meryl Whatley MD [Physician] - 1 Week Additional Instructions: Take your medication as prescribed. Take prilosec 20mg daily. Follow up with Sosa Valerio and Dr Cordova. Angie will need an EGD to look at her esophagus. Please return if Angie is worse. - My Orders Last 24 Hours: My Active Orders 01/12/19 15:33 Cardiac Monitoring [RC] . DIRECTED Sodium Chloride 0.9% [Saline Flush] 10 ml FLUSH ASDIRECTED PRN Peripheral IV Insertion Adult [OM.PC] Stat 01/12/19 15:34 Peripheral IV Care [RC] . DIRECTED 01/12/19 15:45 Sodium Chloride 0.9% [Normal Saline] 1,000 ml IV .BOLUS 01/12/19 16:27 Urinary Catheter Assessment [RC] ASDIRECTED 01/12/19 16:30 Insert Kelley Catheter [Insert Urinary Catheter] [OM.PC] Q24H 01/12/19 17:45 Sodium Chloride 0.9% [Normal Saline] 100 ml IV ASDIRECTED 01/12/19 19:14 Pantoprazole [ProTONIX IV] 40 mg IVPUSH ONETIME ONE - Assessment/Plan Last 24 Hours: My Active Orders 01/12/19 15:33 Cardiac Monitoring [RC] . DIRECTED Sodium Chloride 0.9% [Saline Flush] 10 ml FLUSH ASDIRECTED PRN Peripheral IV Insertion Adult [OM.PC] Stat 01/12/19 15:34 Peripheral IV Care [RC] . DIRECTED 01/12/19 15:45 Sodium Chloride 0.9% [Normal Saline] 1,000 ml IV .BOLUS 01/12/19 16:27 Urinary Catheter Assessment [RC] ASDIRECTED 01/12/19 16:30 Insert Kelley Catheter [Insert Urinary Catheter] [OM.PC] Q24H 01/12/19 17:45 Sodium Chloride 0.9% [Normal Saline] 100 ml IV ASDIRECTED 01/12/19 19:14 Pantoprazole [ProTONIX IV] 40 mg IVPUSH ONETIME ONE
== END 2019-01-12 19:40 | disposition home or self-care (01) ==
LOC: JD.ED 14:47
DX: K20.9 Esophagitis, unspecified (principal); Z87.891 Personal history of nicotine dependence
CPT/HCPCS: 36415; 70450; 71275; 80053; 81001; 85025; 85379; 96361; 96374; 99285; C9113; J7030; J7040; Q9967; 99284

== ENCOUNTER 2019-02-08 07:18 | Day surgery (SDC) | payer MEDICARE, OTHER ==
[~2019-02-08 07:18] MED LIST: Lactated Ringers 1,000 ML IV SCH; Lidocaine 1%/Sod Bicarbonate in NS 8.4% 1 ML Syringe IDERM PRN; Sodium Chloride 0.9% 10 ML Syringe FLUSH PRN
[2019-02-08] MEDS ORDERED: Lidocaine 1% 2 ML ONE ×2 (07:49)
[2019-02-08] MEDS ORDERED: Propofol 200 MG/20 ML SDV ONE (07:49)
--- NOTE | 2019-02-08 07:50 | PCM.PREANE ---
Preanesthetic Assessment - Anesthesia/Transfusion/Family Hx Anesthesia History: Prior Anesthesia Without Reaction Family History of Anesthesia Reaction: No Transfusion History: No Prior Transfusion(s) Intubation History: Unknown - Review of Systems General: No Symptoms (History of Alzheimers) Pulmonary: No Symptoms (Quit smoking in 1999, History of PE's.(2017)), Cough Cardiovascular: No Symptoms Gastrointestinal: No Symptoms (GERD/history of GI bleed), Difficulty Swallowing Neurological: No Symptoms, Gait Disturbance Other: Reports: None, Easy Bruising - Physical Assessment NPO Status Date: 02/07/19 NPO Status Time: 20:00 Pulse: 67 O2 Sat by Pulse Oximetry: 96 Respiratory Rate: 20 Blood Pressure: 118/82 Temperature: 36.6 C Height: 1.57 m Weight: 58.06 kg ASA Class: 2 Mental Status: Alert & Oriented x3 Airway Class: Mallampati = 2 Dentition: Reports: Dentures, Edentulous Thyro-Mental Finger Breadths: 2 Mouth Opening Finger Breadths: 3 ROM/Head Extension: Full Lungs: Clear to Auscultation, Normal Respiratory Effort Cardiovascular: Regular Rate, Regular Rhythm, No Murmurs - Allergies Allergies/Adverse Reactions: Allergies Allergy/AdvReac Type Severity Reaction Status Date / Time No Known Allergies Allergy Verified 02/07/19 14:01 - Anesthesia Plan Pre-Op Medication Ordered: None - Acknowledgements Anesthesia Type Planned: MAC Pt an Appropriate Candidate for the Planned Anesthesia: Yes Alternatives and Risks of Anesthesia Discussed w Pt/Guardian: Yes Pt/Guardian Understands and Agrees with Anesthesia Plan: Yes PreAnesthesia Questionnaire HEENT History: Reports: Other (See Below) Other HEENT History: unable to eat solid foods, drooling Cardiovascular History: Reports: Other (See Below) Other Cardiovascular History: blood clot to leg Respiratory History: Reports: PE Gastrointestinal History: Reports: Chronic Constipation, Fecal Incontinence, GI Bleed Genitourinary History: Reports: Urinary Incontinence [employer]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: Reports: None Musculoskeletal History: Reports: Other (See Below) Other Musculoskeletal History: unable to walk, is w/c dependent 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 Psychiatric History: Reports: Alzheimers Disease Endocrine/Metabolic History: Reports: None Hematologic History: Reports: None Immunologic History: Reports: None Oncologic (Cancer) History: Reports: Other (See Below) 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" Dermatologic History: Reports: Other (See Below) Other Dermatologic History: blisters to right shoulder, eczema type rash to left shoulder - Infectious Disease History Infectious Disease History: Reports: Influenza, Other (See Below) Other Infectious Disease History: unable to obtain - Past Surgical History Head Surgeries/Procedures: Reports: None HEENT Surgical History: Reports: Oral Surgery Respiratory Surgical History: Reports: None GI Surgical History: Reports: None Female Surgical History: Reports: None Male Surgical History: Reports: None Endocrine Surgical History: Reports: None Neurological Surgical History: Reports: None Musculoskeletal Surgical History: Reports: None Oncologic Surgical History: Reports: None Dermatological Surgical History: Reports: None - SUBSTANCE USE Smoking Status *Q: Former Smoker Recreational Drug Use History: No - HOME MEDS Home Medications: Home Meds Memantine HCl/Donepezil HCl [Namzaric 28 mg-10 mg Capsule] 1 each PO DAILY 04/22 [History] risperiDONE [Risperdal] 0.5 mg PO 1900 04/22/17 [History] - CURRENT (IN HOUSE) MEDS Current Meds: Current Medications Lactated Ringer's (Ringers, Lactated) 1,000 mls @ 125 mls/hr IV ASDIRECTED RAMON Stop: 02/08/19 23:00 Lidocaine/Sodium Bicarbonate (Buffered Lidocaine 1% In Ns 8.4%) 0.25 ml IDERM ONETIME PRN PRN Reason: Prior to IV Start Stop: 02/08/19 18:00 Sodium Chloride (Saline Flush) 10 ml FLUSH ASDIRECTED PRN PRN Reason: Keep Vein Open Stop: 02/08/19 18:00
--- NOTE | 2019-02-08 08:51 | PCM.OPNOTE ---
- General Post-Op/Procedure Note Date of Surgery/Procedure: 02/08/19 Operative Procedure(s): Incomplete EGD with biopsy Findings: Stricture at 30cm, unable to pass scope beyond stricture Pre Op Diagnosis: GERD and esophageal thickening Post-Op Diagnosis: Esophageal stricture and GERD [place] [facility] [place]geon: Meryl Whatley Anesthesia Provider: Zahraa Doe Pathology: esophageal biopsy Fluid Replacement, Intraop: 200 Output, Urine Amount: 0 EBL in mLs: 0 Complications: None apparent Condition: Good
--- NOTE | 2019-02-08 08:53 | PCM48HPAN ---
Post Anesthesia Note - EVALUATION WITHIN 48HRS OF ANESTHETIC Vital Signs in Normal Range: Yes Patient Participated in Evaluation: Yes Respiratory Function Stable: Yes Airway Patent: Yes Cardiovascular Function Stable: Yes Hydration Status Stable: Yes Pain Control Satisfactory: Yes Nausea and Vomiting Control Satisfactory: Yes Mental Status Recovered: Yes Pulse Rate: 67 SaO2: 93 Resp Rate: 15 Temperature: 36.6 C Blood Pressure: 128/68 Pulse Rate: 93
--- NOTE | 2019-02-08 08:54 | PCM.PRNOTE ---
- Free Text/Narrative Note: Operative Report Date of procedure: February 08, 2019 Preoperative diagnosis: Esophageal thickening and GERD Postoperative diagnosis: , Esophageal stricture and GERD Surgeon: Meryl Whatley M.D. Procedure: Incomplete EGD with biopsy Anesthesia: MAC Anesthesiologist: Zahraa Doe CRNA IV fluids: 200 mL Estimated blood loss: 0 mL Specimens: Esophageal biopsy. Indication: The patient is an 78 -year-old lady who presented with findings of esophageal thickening on CT scan. The patient was recently seen in the ED and evaluated for possible PE due to her shortness of breath. Patient has underlying dementia secondary to Alzheimer's disease and is unable to verbalize her symptoms. The patient was consented for an EGD with intervention. Risk of bleeding and perforation were discussed. The patient's consent was obtained Description of the procedure: The patient was taken to the endoscopy suite and placed on hemodynamic monitoring. The nurse cosmetic counselor induced MAC anesthesia. A bite block was placed. The patient was positioned in the left lateral decubitus position. A timeout was performed. The endoscope was gently placed into the mouth to the back of the pharynx and introduced into the esophagus. The scope was gently advanced under direct visualization down to approximately 30 cm where we encountered a strictured area with some surrounding erythema tissue friability. The diameter of the lumen of the esophagus and this area was approximately 4-5 mm. We were unable to pass the scope beyond this area. Biopsies were taken of the tissue at this level using cold biopsy forceps. There was frothy sputum as well as bile present within the esophagus that was suctioned. The scope was then withdrawn while inspecting the esophagus. There was no additional esophagitis. The procedure was terminated. the patient tolerated the procedure well without any evidence of complications. Meryl Whatley MD General Surgery
[2019-02-08 09:26] VITALS: BP 92/78
== END 2019-02-08 09:47 | disposition home or self-care (01) ==
LOC: JD.SDS 07:18
PROVIDERS: ATTEND Surgery
DX: K21.0 Gastro-esophageal reflux disease with esophagitis (principal); K22.2 Esophageal obstruction; G30.9 Alzheimer's disease, unspecified; F02.80 Dementia in other diseases classified elsewhere, unspecified severity, without behavioral disturbance, psychotic disturbance, mood disturbance, and anxiety; Z87.891 Personal history of nicotine dependence; Z79.899 Other long term (current) drug therapy
CPT/HCPCS: 43202; J2001; J2704; J7120; 00731

== ENCOUNTER 2019-03-01 07:56 | Day surgery (SDC) | payer MEDICARE, OTHER, MEDICAID ==
--- NOTE | 2019-03-01 08:53 | PCM.PREANE ---
Preanesthetic Assessment - Anesthesia/Transfusion/Family Hx Anesthesia History: Prior Anesthesia Without Reaction Family History of Anesthesia Reaction: No Transfusion History: No Prior Transfusion(s) Intubation History: Unknown - Review of Systems General: No Symptoms Pulmonary: Cough (Chronic), Other (History of PE 2018) Cardiovascular: No Symptoms Gastrointestinal: Other (GERD, on prilosec seems to be much better, Difficulty swallowing) Neurological: Pre-Existing Deficit (Alzheimers Disease, significant memory loss. ), Difficulty Walking (Does ambulate, unsteady gait. ), Gait Disturbance Other: Reports: Easy Bruising - Physical Assessment NPO Status Date: 02/28/19 NPO Status Time: 19:30 O2 Sat by Pulse Oximetry: 99 Respiratory Rate: 20 Vital Signs: Last Vital Signs Temp 36.2 C 03/01/19 08:00 Pulse 72 03/01/19 08:00 Resp 20 03/01/19 08:00 BP 142/80 H 03/01/19 08:00 Pulse Ox 99 03/01/19 08:00 Weight: 57.606 kg ASA Class: 2 Mental Status: Alert & Oriented x3 Airway Class: Mallampati = 2 Dentition: Reports: Dentures, Edentulous Thyro-Mental Finger Breadths: 2 Mouth Opening Finger Breadths: 3 ROM/Head Extension: Full Lungs: Clear to Auscultation, Normal Respiratory Effort Cardiovascular: Regular Rate, Regular Rhythm - Allergies Allergies/Adverse Reactions: Allergies Allergy/AdvReac Type Severity Reaction Status Date / Time No Known Allergies Allergy Verified 02/28/19 13:36 - Acknowledgements Anesthesia Type Planned: MAC Pt an Appropriate Candidate for the Planned Anesthesia: Yes Alternatives and Risks of Anesthesia Discussed w Pt/Guardian: Yes Pt/Guardian Understands and Agrees with Anesthesia Plan: Yes Additional Comments: Angie's son Ubaldo is at the bedside. He is signing consents today. Angie appears comfortable and non agitated. She is unable to answer questions. PreAnesthesia Questionnaire HEENT History: Reports: Other (See Below) Other HEENT History: unable to eat solid foods, drooling Cardiovascular History: Reports: Other (See Below) Other Cardiovascular History: blood clot to leg Respiratory History: Reports: PE Gastrointestinal History: Reports: Chronic Constipation, Fecal Incontinence, GI Bleed Genitourinary History: Reports: Urinary Incontinence LINING LAYER History: Reports: None Musculoskeletal History: Reports: Other (See Below) Other Musculoskeletal History: unable to walk, is w/c dependent 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 Psychiatric History: Reports: Alzheimers Disease Endocrine/Metabolic History: Reports: None Hematologic History: Reports: None Immunologic History: Reports: None Oncologic (Cancer) History: Reports: Other (See Below) 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" Dermatologic History: Reports: Other (See Below) Other Dermatologic History: blisters to right shoulder, eczema type rash to left shoulder - Infectious Disease History Infectious Disease History: Reports: Influenza, Other (See Below) Other Infectious Disease History: unable to obtain - Past Surgical History Head Surgeries/Procedures: Reports: None HEENT Surgical History: Reports: Oral Surgery Respiratory Surgical History: Reports: None GI Surgical History: Reports: None Female Surgical History: Reports: None Male Surgical History: Reports: None Endocrine Surgical History: Reports: None Neurological Surgical History: Reports: None Musculoskeletal Surgical History: Reports: None Oncologic Surgical History: Reports: None Dermatological Surgical History: Reports: None - SUBSTANCE USE Smoking Status *Q: Never Smoker Recreational Drug Use History: No - HOME MEDS Home Medications: Home Meds Memantine HCl/Donepezil HCl [Namzaric 28 mg-10 mg Capsule] 1 each PO DAILY 04/22 [History] risperiDONE [Risperdal] 0.5 mg PO 1900 04/22/17 [History] Omeprazole Magnesium [Prilosec Otc] 20 mg PO DAILY 02/28/19 [History] Polyethylene Glycol 3350 [MiraLAX] 1 dose PO DAILY 02/28/19 [History] - CURRENT (IN HOUSE) MEDS Current Meds: Current Medications Lactated Ringer's (Ringers, Lactated) 1,000 mls @ 125 mls/hr IV ASDIRECTED RAMON Stop: 03/01/19 23:00 Lidocaine/Sodium Bicarbonate (Buffered Lidocaine 1% In Ns 8.4%) 0.25 ml IDERM ONETIME PRN PRN Reason: Prior to IV Start Stop: 03/01/19 18:00 Sodium Chloride (Saline Flush) 10 ml FLUSH ASDIRECTED PRN PRN Reason: Keep Vein Open Stop: 03/01/19 18:00
[2019-03-01] MEDS ORDERED: Propofol 200 MG/20 ML SDV ONE (10:01)
[2019-03-01] MEDS ORDERED: Lidocaine 1% 6 ML ONE (10:01)
--- NOTE | 2019-03-01 10:43 | PCM.OPNOTE ---
- General Post-Op/Procedure Note Date of Surgery/Procedure: 03/01/19 Operative Procedure(s): EGD with balloon dilation Findings: 1. Esophageal stricture at 30cm 2. Gastritis 3. Duodenitis 4. Hiatal hernia, about 4cm Pre Op Diagnosis: esophageal stricture Post-Op Diagnosis: Esophageal stricture with hiatal hernia Anesthesia Technique: [facility] [place] Primary Surgeon: Meryl Whatley Anesthesia Provider: Francheska Crouch Pathology: 1. Duodenum biopsy 2. Antrum biopsy 3. Stricture biopsy Fluid Replacement, Intraop: 750 Output, Urine Amount: 0 EBL in mLs: 0 Complications: none apparent Condition: Good
--- NOTE | 2019-03-01 10:44 | PCM.PRNOTE ---
- Free Text/Narrative Note: Operative Report Date of procedure: March 01, 2019 Preoperative diagnosis: . Esophageal stricture Postoperative diagnosis: . Esophageal stricture with hiatal hernia Surgeon: Meryl Whatley M.D. Procedure: EGD with balloon dilation Anesthesia: MAC Anesthesiologist: Francheska Crouch CRNA IV fluids: 750 mL Estimated blood loss: 0 mL Specimens: 1. Duodenum biopsy 2. Antrum biopsy 3. Stricture biopsy Indication: The patient is a 78-year-old lady who presented with reflux and esophageal thickening. The patient has advanced Alzheimer's and is unable to communicate effectively. She was taken for an EGD that showed a very narrowed stricture in the mid to distal esophagus, biopsies were taken that were benign. The family wished to proceed with a dilation knowing the risk that a possible malignancy might be hidden distal to the stricture. The patient was consented for an EGD with balloon dilation. Risk of bleeding and perforation were discussed. The patient's consent was obtained Description of the procedure: The patient was taken to the endoscopy suite and placed on hemodynamic monitoring. The nurse silk examiner induced MAC anesthesia. A bite block was placed. The patient was positioned in the left lateral decubitus position. A timeout was performed. The endoscope was gently placed into the mouth to the back of the pharynx and introduced into the esophagus. The scope was gently advanced under direct visualization down to the level of the stricture, which was at approximately 30 cm. We began by inserting dilator through the 3-4 mm opening and sequentially dilating the strictured area to 15mm. The stomach was then entered. Normal rugal folds were noted. The scope was advanced into the antrum. We noted mild to moderate gastritis in the distal stomach and antrum. The pylorus was then entered and the first and second portion of the duodenum was inspected. We did note some blunting of the villi consistent with duodenitis.. There were no ulcerations in the duodenum. Biopsies were taken of the duodenal mucosa. The scope was then withdrawn into the stomach and biopsies were taken in the antrum to be sent for H. pylori The scope was then retroflexed in the cardia and fundus were investigated. There was evidence of hiatal hernia in the retroflexed view. No other abnormalities were noted. The scope was then withdrawn and the hernia was measured at approximately 4 cm length. The stricture was noted to be in the area at the GE junction. We proceeded to dilate the stricture further to 18 mm. We then took biopsies of the strictured area. The procedure was terminated. the patient tolerated the procedure well without any evidence of complications. She was escorted back to the preoperative area in stable condition. Specimens will be sent to pathology Meryl Whatley MD General Surgery
[2019-03-01 10:52] VITALS: BP 150/100
--- NOTE | 2019-03-01 10:52 | PCM48HPAN ---
Post Anesthesia Note - EVALUATION WITHIN 48HRS OF ANESTHETIC Vital Signs in Normal Range: Yes Patient Participated in Evaluation: No (pt dementia ) Respiratory Function Stable: Yes Airway Patent: Yes (continues to produce copious secretions ) Cardiovascular Function Stable: Yes Hydration Status Stable: Yes Pain Control Satisfactory: Yes Nausea and Vomiting Control Satisfactory: Yes Mental Status Recovered: Yes Pulse Rate: 75 SaO2: 96 Resp Rate: 20 Temperature: 36.6 C Blood Pressure: 150/100
== END 2019-03-01 11:20 | disposition home or self-care (01) ==
LOC: JD.SDS 07:56
PROVIDERS: ATTEND Surgery
DX: K22.10 Ulcer of esophagus without bleeding (principal); K22.2 Esophageal obstruction; K44.9 Diaphragmatic hernia without obstruction or gangrene; K59.09 Other constipation; K21.9 Gastro-esophageal reflux disease without esophagitis; G30.9 Alzheimer's disease, unspecified; F02.80 Dementia in other diseases classified elsewhere, unspecified severity, without behavioral disturbance, psychotic disturbance, mood disturbance, and anxiety; Z87.891 Personal history of nicotine dependence; Z79.899 Other long term (current) drug therapy
CPT/HCPCS: 43239; 43249; J2001; J2704

== ENCOUNTER 2019-09-13 12:33 | Emergency (ER) | payer MEDICARE, OTHER ==
[2019-09-13 12:52] VITALS: BP 101/78; PULSE 60
--- NOTE | 2019-09-13 13:05 | EDM.PDOC ---
ED HPI GENERAL MEDICAL PROBLEM - General Chief Complaint: Genitourinary Problem Stated Complaint: POSS UTI Time Seen by Provider: 09/13/19 12:55 Source of Information: Reports: Patient History Limitations: Reports: No Limitations - History of Present Illness INITIAL COMMENTS - FREE TEXT/NARRATIVE: Patient's unfortunate 78-year-old female who presents emergency Department today with complaint of urinary tract infection. Patient was in her normal state of health until yesterday morning when the son as she was having foul-smelling urine and that progressing in this morning so brought an emergency part for evaluation patient has progressive dementia and is noncommunicative most days. Son reports today she is at baseline. Does report that she has had some liquid stool he suspects she may have a fecal impaction so would like that checked as well, no fever, no vomiting, no shortness of breath - Related Data Allergies Allergy/AdvReac Type Severity Reaction Status Date / Time No Known Allergies Allergy Verified 04/23/19 20:08 Home Meds: Home Meds Memantine HCl/Donepezil HCl [Namzaric 28 mg-10 mg Capsule] 1 each PO DAILY 04/22 [History] Omeprazole Magnesium [Prilosec Otc] 20 mg PO DAILY 02/28/19 [History] Polyethylene Glycol 3350 [MiraLAX] 1 dose PO DAILY 02/28/19 [History] cephALEXin [Keflex] 500 mg PO Q4H #28 cap 09/13/19 [Rx] Past Medical History HEENT History: Reports: Other (See Below) Other HEENT History: unable to eat solid foods, drooling Cardiovascular History: Reports: Other (See Below) Other Cardiovascular History: blood clot to leg Respiratory History: Reports: PE Gastrointestinal History: Reports: Chronic Constipation, Fecal Incontinence, GI Bleed Genitourinary History: Reports: Urinary Incontinence ROUTE SALES REPRESENTATIVE History: Reports: None Musculoskeletal History: Reports: Other (See Below) Other Musculoskeletal History: unable to walk, is w/c dependent 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 Psychiatric History: Reports: Alzheimers Disease Endocrine/Metabolic History: Reports: None Hematologic History: Reports: None Immunologic History: Reports: None Oncologic (Cancer) History: Reports: Other (See Below) 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" Dermatologic History: Reports: Other (See Below) Other Dermatologic History: blisters to right shoulder, eczema type rash to left shoulder - Infectious Disease History Infectious Disease History: Reports: Influenza, Other (See Below) Other Infectious Disease History: unable to obtain - Past Surgical History Head Surgeries/Procedures: Reports: None HEENT Surgical History: Reports: Oral Surgery, Other (See Below) Other HEENT Surgeries/Procedures: has had esophageal dilation Respiratory Surgical History: Reports: None GI Surgical History: Reports: None Female Surgical History: Reports: None Endocrine Surgical History: Reports: None Neurological Surgical History: Reports: None Musculoskeletal Surgical History: Reports: None Oncologic Surgical History: Reports: None Dermatological Surgical History: Reports: None Social & Family History - Family History Family Medical History: Noncontributory - Tobacco Use Smoking Status *Q: Never Smoker Second Hand Smoke Exposure: No - Caffeine Use Caffeine Use: Reports: None Other Caffeine Use: pt is on full liquid protein drinks ED ROS GENERAL - Review of Systems Review Of Systems: Unable To Obtain Reason Not Obtained: Altered mental status : Reports: Other (foul smelling urine) ED EXAM, GI/ABD - Physical Exam Exam: See Below Exam Limited By: No Limitations General Appearance: Alert, WD/WN, Mild Distress Neck: Normal Inspection, Supple, Non-Tender, Full Range of Motion Respiratory/Chest: No Respiratory Distress, Lungs Clear, Normal Breath Sounds, No Accessory Muscle Use, Chest Non-Tender Cardiovascular: Normal Peripheral Pulses, Regular Rate, Rhythm, No Edema, No Gallop, No JVD, No Murmur, No Rub GI/Abdominal Exam: Normal Bowel Sounds, Soft, Non-Tender, No Organomegaly, No Distention, No Abnormal Bruit, No Mass, Pelvis Stable Back Exam: Normal Inspection, Full Range of Motion, NT Extremities: Normal Inspection, Normal Range of Motion, Non-Tender, Normal Capillary Refill, No Pedal Edema Neurological: Alert Skin Exam: Warm, Dry, No Rash Course - Vital Signs Last Recorded V/S: Last Vital Signs Temp 96.8 F 09/13/19 12:47 Pulse 60 09/13/19 12:47 Resp 16 09/13/19 12:47 BP 101/78 09/13/19 12:47 Pulse Ox 100 09/13/19 12:47 - Orders/Labs/Meds Orders: Active Orders 24 hr Category Date Time Status Abdomen 1V Flat [CR] Stat Exams 09/13/19 13:01 Taken CULTURE URINE [RM] Stat Lab 09/13/19 13:36 Received Labs: Laboratory Tests 09/13/19 Range/Units 13:36 Urine Color Yellow (Yellow) Urine Appearance Clear (Clear) Urine pH 6.0 (5.0-8.0) Ur Specific Wrights > or = 1.030 (1.005-1.030) Urine Protein Negative (Negative) Urine Glucose (UA) Negative (Negative) Urine Ketones Negative (Negative) Urine Occult Blood Negative (Negative) Urine Nitrite Positive H (Negative) Urine Bilirubin Negative (Negative) Urine Urobilinogen 0.2 (0.2-1.0) Ur Leukocyte Esterase Trace H (Negative) Urine RBC 0-5 (0-5) /hpf Urine WBC 10-20 H (0-5) /hpf Ur Squamous Epith Cells 0-5 (0-5) /hpf Urine Bacteria Many H (FEW) /hpf Urine Mucus Not seen (FEW) /hpf - Re-Assessments/Exams Free Text/Narrative Re-Assessment/Exam: 09/13/19 13:37 Abdomen and by me NAD Departure - Departure Time of Disposition: 14:40 Disposition: Home, Self-Care 01 Condition: Good Clinical Impression: UTI, Urinary tract infectious disease - Discharge Information Prescriptions: cephALEXin [Keflex] 500 mg PO Q4H #28 cap Referrals: PCP,None [Primary Care Provider] - Forms: ED Department Discharge Additional Instructions: Home, rest, return as needed for worsening condition Sepsis Event Note - Evaluation Sepsis Screening Result: No Definite Risk - Focused Exam Vital Signs: Vital Signs Temp Pulse Resp BP Pulse Ox 09/13/19 12:47 96.8 F 60 16 101/78 100 Date Exam was Performed: 09/13/19 Time Exam was Performed: 14:40 - My Orders Last 24 Hours: My Active Orders 09/13/19 13:01 Abdomen 1V Flat [CR] Stat 09/13/19 13:36 CULTURE URINE [RM] Stat - Assessment/Plan Last 24 Hours: My Active Orders 09/13/19 13:01 Abdomen 1V Flat [CR] Stat 09/13/19 13:36 CULTURE URINE [RM] Stat
--- NOTE | 2019-09-14 11:38 | CR ---
Abdomen: Supine view of the abdomen was obtained. Comparison: No prior abdominal x-ray. Scattered bowel gas appears within normal limits. Calcifications are seen within the pelvis which are compatible with phleboliths. Slightly sclerotic left sacroiliac joint is seen believed to represent bone island. Bony structures are osteopenic. No soft tissue abnormality is appreciated. Impression: 1. Findings as noted above. 2. Nothing acute is seen on supine abdominal x-ray. Diagnostic code #2 This report was dictated in [place] Standard Time
== END 2019-09-13 14:55 | disposition home or self-care (01) ==
LOC: JD.ED 12:33
DX: N39.0 Urinary tract infection, site not specified (principal); B96.20 Unspecified Escherichia coli [E. coli] as the cause of diseases classified elsewhere; Z86.711 Personal history of pulmonary embolism; G30.9 Alzheimer's disease, unspecified; F02.80 Dementia in other diseases classified elsewhere, unspecified severity, without behavioral disturbance, psychotic disturbance, mood disturbance, and anxiety
CPT/HCPCS: 74018; 74018-26; 81001; 87086; 87088; 87186; 99282; 99283-25

== ENCOUNTER 2020-02-12 08:04 | Day surgery (SDC) | payer MEDICARE, OTHER ==
--- NOTE | 2020-02-12 08:56 | PCM.PREANE ---
Preanesthetic Assessment - Procedure Proposed Procedure: EGD - Anesthesia/Transfusion/Family Hx Anesthesia History: Prior Anesthesia Without Reaction Family History of Anesthesia Reaction: No Transfusion History: No Prior Transfusion(s) Intubation History: Unknown - Review of Systems General: Weakness Pulmonary: Sputum, Other (PE in September of 2017) Cardiovascular: Dyspnea on Exertion Gastrointestinal: Difficulty Swallowing Neurological: Difficulty Walking, Weakness, Gait Disturbance (assist X 1) Other: Reports: Easy Bruising - Physical Assessment NPO Status Date: 02/11/20 NPO Status Time: 20:00 Vital Signs: Last Vital Signs Temp 36.9 C 02/12/20 07:56 Pulse 78 02/12/20 07:56 Resp 20 02/12/20 07:56 BP 135/101 H 02/12/20 07:56 Pulse Ox 100 02/12/20 07:56 Height: 1.55 m Weight: 59.421 kg ASA Class: 3 Mental Status: Other (Alzheimers) Dentition: Reports: Edentulous Thyro-Mental Finger Breadths: 2 Mouth Opening Finger Breadths: 1 ROM/Head Extension: Limited/Partial Lungs: Normal Respiratory Effort, Wheezing (Clear with coughing) Cardiovascular: Regular Rate, Regular Rhythm - Lab Values: Laboratory Last Values SARS Virus RNA (PCR) Negative (NEGATIVE) 02/11/20 10:20 - Imaging/EKG Impressions: EKG 04/23/2019 SR borderline right axis deviation, Rate 67 - Allergies Allergies/Adverse Reactions: Allergies Allergy/AdvReac Type Severity Reaction Status Date / Time No Known Allergies Allergy Verified 02/12/20 08:39 - Blood Blood Available: No Product(s) Available: None - Anesthesia Plan Pre-Op Medication Ordered: None - Acknowledgements Anesthesia Type Planned: MAC Pt an Appropriate Candidate for the Planned Anesthesia: Yes Alternatives and Risks of Anesthesia Discussed w Pt/Guardian: Yes Pt/Guardian Understands and Agrees with Anesthesia Plan: Yes PreAnesthesia Questionnaire HEENT History: Reports: Other (See Below) Other HEENT History: unable to eat solid foods, drooling, loss of teeth, oral thrush Cardiovascular History: Reports: Blood Clots/VTE/DVT, Other (See Below) Other Cardiovascular History: blood clot to leg Respiratory History: Reports: PE Gastrointestinal History: Reports: Chronic Constipation, Fecal Incontinence, GERD, GI Bleed, Hiatal Hernia, Other (See Below) Other Gastrointestinal History: esophageal stricture, GI bleed, esophagitis Genitourinary History: Reports: Urinary Incontinence ART INSTALLER History: Reports: None Musculoskeletal History: Reports: Other (See Below) Other Musculoskeletal History: unable to walk, is w/c dependent 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 Psychiatric History: Reports: Alzheimers Disease Endocrine/Metabolic History: Reports: None Hematologic History: Reports: None Immunologic History: Reports: None Oncologic (Cancer) History: Reports: None, Other (See Below) 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" Dermatologic History: Reports: Other (See Below) Other Dermatologic History: blisters to right shoulder, eczema type rash to left shoulder - Infectious Disease History Infectious Disease History: Reports: Influenza, Other (See Below) Other Infectious Disease History: unable to obtain - Past Surgical History Head Surgeries/Procedures: Reports: None HEENT Surgical History: Reports: Oral Surgery, Other (See Below) Other HEENT Surgeries/Procedures: has had esophageal dilation Respiratory Surgical History: Reports: None GI Surgical History: Reports: EGD, Other (See Below) Other GI Surgeries/Procedures: abdominal surgery Female Surgical History: Reports: None Male Surgical History: Reports: None Endocrine Surgical History: Reports: None Neurological Surgical History: Reports: None Musculoskeletal Surgical History: Reports: None Oncologic Surgical History: Reports: None Dermatological Surgical History: Reports: None - SUBSTANCE USE Smoking Status *Q: Former Smoker Tobacco Use Within Last Twelve Months: No Second Hand Smoke Exposure: No Days Per Week of Alcohol Use: 0 Number of Drinks Per Day: 0 Total Drinks Per Week: 0 Recreational Drug Use History: No - HOME MEDS Home Medications: Home Meds Memantine HCl/Donepezil HCl [Namzaric 28 mg-10 mg Capsule] 1 each PO DAILY 04/22 [History] Omeprazole Magnesium [Prilosec Otc] 20 mg PO DAILY 02/28/19 [History] polyethylene glycoL 3350 [MiraLAX] 1 dose PO DAILY 02/28/19 [History] risperiDONE [RisperiDAL] 0.5 mg PO BEDTIME 02/11/20 [History] - CURRENT (IN HOUSE) MEDS Current Meds: Current Medications Lactated Ringer's (Ringers, Lactated) 1,000 mls @ 125 mls/hr IV ASDIRECTED RAMON Last Admin: 02/12/20 08:17 Dose: 125 mls/hr Lidocaine/Sodium Bicarbonate (Buffered Lidocaine 1% In Ns 8.4%) 0.25 ml IDERM ONETIME PRN PRN Reason: Prior to IV Start Sodium Chloride (Saline Flush) 10 ml FLUSH ASDIRECTED PRN PRN Reason: Keep Vein Open
[2020-02-12] MEDS ORDERED: Propofol 200 MG/20 ML SDV ONE ×2 (09:14→10:22)
--- NOTE | 2020-02-12 10:46 | PCM48HPAN ---
Post Anesthesia Note - EVALUATION WITHIN 48HRS OF ANESTHETIC Vital Signs in Normal Range: Yes Patient Participated in Evaluation: Yes Respiratory Function Stable: Yes Airway Patent: Yes Cardiovascular Function Stable: Yes Hydration Status Stable: Yes Pain Control Satisfactory: Yes Nausea and Vomiting Control Satisfactory: Yes Mental Status Recovered: Yes Vital Signs: Last Vital Signs Temp 36.9 C 02/12/20 07:56 Pulse 78 02/12/20 07:56 Resp 20 02/12/20 07:56 BP 135/101 H 02/12/20 07:56 Pulse Ox 100 02/12/20 07:56 - COMMENTS/OBSERVATIONS Free Text/Narrative:: 1036 126/106 76 20 94% 97.3F
--- NOTE | 2020-02-12 10:46 | PCM.OPNOTE ---
- General Post-Op/Procedure Note Date of Surgery/Procedure: 02/12/20 Operative Procedure(s): EGD with esophageal dilation Findings: 1. stricture at 31 cm 2. Hiatal hernia 3cm 3. Gastritis Pre Op Diagnosis: dysphagia Post-Op Diagnosis: same Anesthesia Technique: MAC Primary Surgeon: Meryl Whatley Anesthesia Provider: Cat Muniz Pathology: 1. GE junction biopsies 2. Gastric antrum biopsies 3. Stricture biopsies Fluid Replacement, Intraop: 0 (see anesthesia record) Output, Urine Amount: 0 EBL in mLs: 0 Complications: none apparent Condition: Good
--- NOTE | 2020-02-12 10:57 | PCM.PRNOTE ---
- Free Text/Narrative Note: Operative Report Date of procedure: February 12, 2020 Preoperative diagnosis: dysphagia Postoperative diagnosis: same Surgeon: Meryl Whatley M.D. Procedure: EGD with esophageal dilation Anesthesia: MAC Health Information Technician: Minnie Muniz CRNA IV fluids: See anesthesia record Estimated blood loss: 0 mL Specimens: 1. GE junction biopsies 2. Gastric antrum biopsies 3. Stricture biopsies Indication: The patient is a 79 -year-old lady who presented with difficulty eating and swallowing. She has an esophageal stricture that was dilated one year ago. The patient was consented for an EGD with intervention. Risk of bleeding and perforation were discussed. The patient's consent was obtained through the patient's architectural representative due to her advanced dementia. Description of the procedure: The patient was taken to the endoscopy suite and placed on hemodynamic monitoring. The nurse subassemblies wirer induced MAC anesthesia. A bite block was placed. The patient was positioned in the left lateral decubitus position. A timeout was performed. The endoscope was gently placed into the mouth to the back of the pharynx and introduced into the esophagus. The scope was gently advanced under direct visualization down to the level of the stricture, noted at 31cm. The opening was 2-3mm. This was sequentially dilated to 15mm with balloon dilators. There were bilious secretions in the esophagus that were suctioned. The scope was then advanced into the stomach. The stomach was then entered. Normal rugal folds were noted, with some evidence of erythema consistent with gastritis The scope was advanced into the antrum. Biopsies were taken in the antrum with cold biopsy forceps for H. pylori. We noted a large amount of bilious secretions in the stomach. The pylorus was then entered and the first and second portion of the duodenum was inspected. There were no ulcerations in the duodenum. The scope was then retroflexed in the cardia and fundus were investigated. There was evidence of a hiatal hernia. No other abnormalities were noted. The scope was then withdrawn while inspecting the esophagus. The stricture was noted to be at the GE junction. It was then dilated to 20mm and easily admitted the scope. There were some tissue changes at this level that appeared to be esophagitis. Biopsies were taken at the GE junction/stricture with cold biopsy forceps. The procedure was terminated. the patient tolerated the procedure well without any evidence of complications. Meryl Whatley MD General Surgery
[2020-02-12 11:08] VITALS: PULSE 65
[2020-02-12 12:34] VITALS: BP 93/61
== END 2020-02-12 11:55 | disposition home or self-care (01) ==
LOC: JD.SDS 08:04
PROVIDERS: ATTEND Surgery
DX: K22.2 Esophageal obstruction (principal); K31.89 Other diseases of stomach and duodenum; K21.0 Gastro-esophageal reflux disease with esophagitis; Z20.828 Contact with and (suspected) exposure to other viral communicable diseases; Z79.899 Other long term (current) drug therapy; Z87.891 Personal history of nicotine dependence
CPT/HCPCS: 43239; 43249; J2704; J7120; U0002

== ENCOUNTER 2021-01-08 15:39 | Emergency (ER) | payer MEDICARE, OTHER ==
[2021-01-08 15:55] VITALS: PULSE 79
--- NOTE | 2021-01-08 16:07 | EDM.PDOC ---
ED HPI GENERAL MEDICAL PROBLEM - General Chief Complaint: Genitourinary Problem Stated Complaint: POSS UTI/FECAL IMPACTION Time Seen by Provider: 01/08/21 15:56 Source of Information: Reports: Family (son) History Limitations: Reports: Altered Mental Status - History of Present Illness INITIAL COMMENTS - FREE TEXT/NARRATIVE: 80-year-old female who suffers from severe dementia and is cared for by her son presents to the ED for evaluation of worsening dementia symptoms and mild agitation. Her son reports that a lot of times when this occurs she has an underlying urinary tract infection. She is prone to chronic constipation issues as well. She seems not to be eating or drinking as well as of late. He therefore brought her to the ED for evaluation of possible constipation and urinary tract infection. She has chronic trouble swallowing with dysphagia which is being cared for by Dr. Cordova by upper esophageal dilatation intermittently. Onset: Gradual Onset Date: 01/06/21 Duration: Day(s): (Seems to be dwindling a bit more than usual over the last 2 days.), Getting Worse Location: Reports: Generalized Quality: Reports: Other (More agitated and not taking much in the way of food or fluid lately. This often occurs with associated urinary tract infection or constipation which are both chronic problems for her. She finished antibiotics a week and a half ago for a UTI.) Severity: Moderate Improves with: Reports: None Worsens with: Reports: None Context: Reports: Other. Denies: Activity, Exercise, Lifting, Sick Contact, Trauma Associated Symptoms: Reports: Confusion (And suffers from severe chronic dementia.), Loss of Appetite, Other (And is nonverbal.). Denies: Chest Pain, Cough (Likely), cough w sputum, Fever/Chills, Malaise, Nausea/Vomiting Treatments PRICE ANALYST: Reports: Other (see below) abdomen Pain Score (Numeric/FACES): 5 - Related Data Allergies Allergy/AdvReac Type Severity Reaction Status Date / Time No Known Allergies Allergy Verified 01/08/21 15:55 Home Meds: Home Meds Memantine HCl/Donepezil HCl [Namzaric 28 mg-10 mg Capsule] 1 each PO DAILY 04/22/17 [History] Omeprazole Magnesium [Prilosec Otc] 20 mg PO DAILY 02/28/19 [History] polyethylene glycoL 3350 [MiraLAX] 1 dose PO DAILY 02/28/19 [History] risperiDONE [RisperiDAL] 0.5 mg PO BEDTIME 02/11/20 [History] Famotidine [Pepcid] 20 mg PO BID 30 Days #60 tab 02/12/20 [Rx] Past Medical History HEENT History: Reports: Other (See Below) Other HEENT History: unable to eat solid foods, drooling, loss of teeth, oral thrush Cardiovascular History: Reports: Blood Clots/VTE/DVT, Other (See Below) Other Cardiovascular History: blood clot to leg Respiratory History: Reports: PE Gastrointestinal History: Reports: Chronic Constipation, Fecal Incontinence, GERD, GI Bleed, Hiatal Hernia, Other (See Below) Other Gastrointestinal History: esophageal stricture, GI bleed, esophagitis Genitourinary History: Reports: Urinary Incontinence 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 Musculoskeletal History: Reports: Other (See Below) Other Musculoskeletal History: unable to walk, is w/c dependent 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 Psychiatric History: Reports: Alzheimers Disease Endocrine/Metabolic History: Reports: None Hematologic History: Reports: None Immunologic History: Reports: None Oncologic (Cancer) History: Reports: None, Other (See Below) 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" Dermatologic History: Reports: Other (See Below) Other Dermatologic History: blisters to right shoulder, eczema type rash to left shoulder - Infectious Disease History Infectious Disease History: Reports: Influenza, Other (See Below) Other Infectious Disease History: unable to obtain - Past Surgical History Head Surgeries/Procedures: Reports: None HEENT Surgical History: Reports: Oral Surgery, Other (See Below) Other HEENT Surgeries/Procedures: has had esophageal dilation Respiratory Surgical History: Reports: None GI Surgical History: Reports: EGD, Other (See Below) Other GI Surgeries/Procedures: abdominal surgery Female Surgical History: Reports: None Endocrine Surgical History: Reports: None Neurological Surgical History: Reports: None Musculoskeletal Surgical History: Reports: None Oncologic Surgical History: Reports: None Dermatological Surgical History: Reports: None Social & Family History - Family History Family Medical History: No Pertinent Family History - Tobacco Use Tobacco Use Status *Q: Former Tobacco User Used Tobacco, but Quit: Yes Month/Year Tobacco Last Used: 1995 - Caffeine Use Caffeine Use: Reports: None Other Caffeine Use: pt is on full liquid protein drinks - Living Situation & Occupation Living situation: Reports: , with Family (She lives with her son who cares for her.) Occupation: Retired ED ROS GENERAL - Review of Systems Review Of Systems: Unable To Obtain Reason Not Obtained: Patient has severe dementia and is nonverbal. Her son provides a Constitutional: Reports: Malaise, Weakness, Fatigue, Decreased Appetite, Weight Loss. Denies: Fever, Chills HEENT: Reports: Other (He reports she does have visual acuity problems.) Respiratory: Reports: No Symptoms Cardiovascular: Reports: No Symptoms Endocrine: Reports: Fatigue GI/Abdominal: Reports: Constipation (Chronic constipation problems) : Reports: Other (Recurrent UTI) ED EXAM, GI/ABD - Physical Exam Exam: See Below Exam Limited By: Physical Impairment (No useful information can be provided by the patient due to severe dementia.) General Appearance: Lethargic, Other (Patient is sleeping for the most part during the entire interview with her son.) Eyes: Bilateral: Normal Appearance (Mild blepharal pallor. No scleral icterus.) Throat/Mouth: Other Head: Atraumatic, Normocephalic (Mouth is mildly dry and tongue is coated.), Other (No outward signs of head or neck or facial trauma.) Neck: Normal Inspection. No: Carotid Bruit, Lymphadenopathy (L), Lymphadenopathy (R) Respiratory/Chest: No Respiratory Distress, Lungs Clear, Normal Breath Sounds, No Accessory Muscle Use Cardiovascular: Regular Rate, Rhythm, No Gallop, No Murmur, No Rub. No: Normal Peripheral Pulses GI/Abdominal Exam: Normal Bowel Sounds, Soft, Non-Tender, No Organomegaly, Pelvis Stable, Distended (Abdomen is distended and diffusely tympany to percussion.). No: Guarding, Rigid, Rebound, Tender Back Exam: Other (Mild kyphosis thoracic spine) Extremities: Pedal Edema (Trace pedal edema left lower extremity. She has had a previous DVT on this side.), Other (Tensive) Neurological: No: Alert ( osteoarthritic changes both knees with very limited range of motion of both hips.), Oriented, CN II-XII Intact, Normal Cognition Psychiatric: Other (And is nonverbal.) Skin Exam: Warm, Dry, Intact, Normal Color, No Rash Course - Vital Signs Last Recorded V/S: Last Vital Signs Temp 36.9 C 04/16/21 18:04 Pulse 79 01/08/21 15:51 Resp 18 01/08/21 18:04 BP 142/71 H 01/08/21 18:04 Pulse Ox 95 01/08/21 18:04 - Orders/Labs/Meds Labs: Laboratory Tests 01/08/21 Range/Units 16:33 Urine Color Yellow (Yellow) Urine Appearance Clear (Clear) Urine pH 6.5 (5.0-8.0) Ur Specific [place] 1.020 (1.005-1.030) Urine Protein Negative (Negative) Urine Glucose (UA) Negative (Negative) Urine Ketones Negative (Negative) Urine Occult Blood Negative (Negative) Urine Nitrite Negative (Negative) Urine Bilirubin Negative (Negative) Urine Urobilinogen 0.2 (0.2-1.0) Ur Leukocyte Esterase Negative (Negative) Urine RBC 0-5 (0-5) /hpf Urine WBC 0-5 (0-5) /hpf Ur Squamous Epith Cells 0-5 (0-5) /hpf Urine Bacteria Few (FEW) /hpf Urine Mucus Few (FEW) /hpf - Radiology Interpretation Free Text/Narrative:: 80-year-old female attends the ED at the request of her son who is with her. He is her primary refrigerator cabinetmaker. He reports that she has declined cognitively in the last couple of days and this is often associated with an underlying infection such as a UTI which she has very prone to getting. She second problem is chronic constipation issues. On examination the patient is nonverbal and will move her hands purposely to help pull out the covers to keep warm. She is in sinus rhythm lungs are clear although she is breathing shallowly. The abdomen is distended and diffusely tympany to percussion without any firm masses or guarding. Plan she will have a KUB performed and a urine obtained by catheterization for analysis and culture. - Re-Assessments/Exams Free Text/Narrative Re-Assessment/Exam: 01/08/21 17:00 KUB reveals scattered stool in the colon but no significant obstruction of stool. There is firm stool down in the rectal vault. Air is scattered throughout the large and portions of the small bowel compatible with not moving much. Sclerotic areas noted overlying the left upper sacroiliac joint compatible with a bone island. Minimal scoliosis is noted. Bony structures are osteopenic. 01/08/21 17:06 urinalysis came back completely clear therefore the antibiotics were successful in eradicating the infection in the interim. It is likely that she is developing recurrent urinary tract infections from having stool incontinence contaminating the urethra. Her son is aware of this and tries to clean her up as soon as possible after she defecates. In regards to the chronic constipation we had discussed increasing her MiraLAX to 17 g twice daily. If this does not do the trick she can add Colace 100 mg twice daily to it as well. I suggested discontinuing the Citrucel as if she does not take in enough water the Citrucel will become hardened and concrete like and aggravate the problem. He will give this a try. Departure - Departure Time of Disposition: 17:46 Disposition: Home, Self-Care 01 Condition: Fair Clinical Impression: Constipation by delayed colonic transit, Dementia - Discharge Information *PRESCRIPTION DRUG MONITORING PROGRAM REVIEWED*: Not Applicable *COPY OF PRESCRIPTION DRUG MONITORING REPORT IN PATIENT SANIA: Not Applicable Instructions: Constipation, Adult, [id number] Referrals: Vivian Dunham NP [Primary Care Provider] - Forms: ED Department Discharge Additional Instructions: Evaluation in the emergency room today in regards to increased mild agitation and decline in cognitive function as compared to normal. I recognize this is hard to assess due to late stage severe dementia. As you indicated these changes often occur with an infection or any else thing else that irritates patients. Urinalysis obtained today by catheterization is completely normal and therefore the antibiotics to clear up the infection recently. An x-ray of the abdomen does show scattered amount of stool throughout the colon but no severe constipation. I would suggest switching to MiraLAX powder 17 g or 1 scoop twice daily and stopping the Citrucel to provide regular bowel function. If needed then Colace 100 mg once or twice daily could be added to the system as well. You may want to try a rectal suppository tonight as there is a formed fairly firm stool bolus in the rectal vault on x-ray today. Sepsis Event Note (ED) - Evaluation Sepsis Screening Result: No Definite Risk - Focused Exam Vital Signs: Vital Signs Temp Pulse Resp BP Pulse Ox 01/08/21 18:04 36.9 C 18 142/71 H 95 01/08/21 15:51 36.4 C 79 20 145/94 H 100
--- NOTE | 2021-01-08 16:57 | CR ---
Abdomen: Supine view of the abdomen was obtained. Comparison: Previous abdominal x-ray of 09/13/19. Scattered gas within the colon and small bowel are noted which are believed to be within normal limits. Sclerotic area is noted overlying the left upper sacroiliac joint compatible with bone island. Minimal scoliosis is noted. Bony structures are also osteopenic. Calcifications are seen within the pelvis which are compatible with phleboliths. Impression: 1. Findings believed to be incidental as noted above. 2. Nothing acute is appreciated. Diagnostic code #2
[2021-01-08 18:05] VITALS: BP 142/71
== END 2021-01-08 18:05 | disposition home or self-care (01) ==
LOC: JD.ED 15:39
DX: G30.9 Alzheimer's disease, unspecified (principal); F02.80 Dementia in other diseases classified elsewhere, unspecified severity, without behavioral disturbance, psychotic disturbance, mood disturbance, and anxiety; K59.01 Slow transit constipation; M40.204 Unspecified kyphosis, thoracic region; K21.9 Gastro-esophageal reflux disease without esophagitis; Z79.899 Other long term (current) drug therapy; Z87.891 Personal history of nicotine dependence
CPT/HCPCS: 74018; 74018-26; 81001; 99283; 99285

== ENCOUNTER 2021-02-17 10:57 | Day surgery (SDC) | payer MEDICARE, OTHER ==
[2021-02-17] MEDS ORDERED: Lidocaine 1% 4 ML ONE (11:10)
[2021-02-17] MEDS ORDERED: Propofol 200 MG/20 ML SDV ONE (11:11)
[2021-02-17] MEDS ORDERED: fentaNYL 100 MCG/2 ML SDV ONE (11:11)
--- NOTE | 2021-02-17 11:31 | PCM.PREANE ---
Preanesthetic Assessment - Procedure Proposed Procedure: EGD with possible dilation - Anesthesia/Transfusion/Family Hx Anesthesia History: Prior Anesthesia Without Reaction Family History of Anesthesia Reaction: No Transfusion History: No Prior Transfusion(s) Intubation History: Unknown - Review of Systems General: No Symptoms (Late onset Alzheimer's disease: history received from son; Juvencio.) Pulmonary: No Symptoms (Quit smoking 1999), Cough Cardiovascular: No Symptoms Gastrointestinal: No Symptoms (GERD), Constipation, Diarrhea, Difficulty Swallowing (Esophagitis/esoophageal stricture/Hiatal hernia/GERD) Neurological: No Symptoms Other: Reports: None (History of DVT/Pulmonary Emboli 2018/Late stage Alzheimer's Disease.), Easy Bruising - Physical Assessment NPO Status Date: 02/16/21 NPO Status Time: 20:00 Vital Signs: HR: 74 B/P: 109/72 Resp: 20 Temp: 98.1 Sat: 100% Height: 1.57 m Weight: 58.06 kg ASA Class: 3 Mental Status: Alert & Oriented x3 Airway Class: Mallampati = 2 Dentition: Reports: Edentulous Thyro-Mental Finger Breadths: 3 Mouth Opening Finger Breadths: 3 ROM/Head Extension: Full Lungs: Clear to Auscultation, Normal Respiratory Effort Cardiovascular: Regular Rate, Regular Rhythm, No Murmurs - Imaging/EKG Impressions: EKG: SR rate=67, nonspecific T abnormalities in lateral leads - Allergies Allergies/Adverse Reactions: Allergies Allergy/AdvReac Type Severity Reaction Status Date / Time No Known Allergies Allergy Verified 02/16/21 12:25 - Anesthesia Plan Pre-Op Medication Ordered: None - Acknowledgements Anesthesia Type Planned: MAC Pt an Appropriate Candidate for the Planned Anesthesia: Yes Alternatives and Risks of Anesthesia Discussed w Pt/Guardian: Yes Pt/Guardian Understands and Agrees with Anesthesia Plan: Yes PreAnesthesia Questionnaire HEENT History: Reports: Other (See Below) Other HEENT History: unable to eat solid foods, drooling, loss of teeth, oral thrush Cardiovascular History: Reports: Blood Clots/VTE/DVT, Other (See Below) Other Cardiovascular History: blood clot to leg Respiratory History: Reports: PE Gastrointestinal History: Reports: Chronic Constipation, Fecal Incontinence, GERD, GI Bleed, Hiatal Hernia, Other (See Below) Other Gastrointestinal History: esophageal stricture, GI bleed, esophagitis Genitourinary History: Reports: Urinary Incontinence, UTI, Recurrent 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 Musculoskeletal History: Reports: Other (See Below) Other Musculoskeletal History: unable to walk, is w/c dependent 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 Psychiatric History: Reports: Alzheimers Disease Endocrine/Metabolic History: Reports: None Hematologic History: Reports: None Immunologic History: Reports: None Oncologic (Cancer) History: Reports: None, Other (See Below) 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" Dermatologic History: Reports: Other (See Below) Other Dermatologic History: blisters to right shoulder, eczema type rash to left shoulder - Infectious Disease History Infectious Disease History: Reports: None Other Infectious Disease History: unable to obtain - Past Surgical History Head Surgeries/Procedures: Reports: None HEENT Surgical History: Reports: Oral Surgery, Other (See Below) Other HEENT Surgeries/Procedures: has had esophageal dilation Respiratory Surgical History: Reports: None GI Surgical History: Reports: EGD, Other (See Below) Other GI Surgeries/Procedures: abdominal surgery Female Surgical History: Reports: None Male Surgical History: Reports: None Endocrine Surgical History: Reports: None Neurological Surgical History: Reports: None Musculoskeletal Surgical History: Reports: None Oncologic Surgical History: Reports: None Dermatological Surgical History: Reports: None - SUBSTANCE USE Tobacco Use Status *Q: Former Tobacco User Recreational Drug Use History: No - HOME MEDS Home Medications: Home Meds Memantine HCl/Donepezil HCl [Namzaric 28 mg-10 mg Capsule] 1 each PO DAILY 03/26 06/11 [History] Omeprazole Magnesium [Prilosec Otc] 20 mg PO DAILY 02/28/19 [History] polyethylene glycoL 3350 [MiraLAX] 1 dose PO DAILY 02/28/19 [History] risperiDONE [RisperiDAL] 0.5 mg PO BEDTIME PRN 02/11/20 [History] Famotidine [Pepcid] 20 mg PO BID 30 Days #60 tab 02/12/20 [Rx] Docusate Sodium [Colace] 100 mg PO BID 02/16/21 [History] Methylcellulose (with Sugar) [Citrucel] 1 dose PO DAILY 02/16/21 [History] - CURRENT (IN HOUSE) MEDS Current Meds: Current Medications Lactated Ringer's (Ringers, Lactated) 1,000 mls @ 125 mls/hr IV ASDIRECTED RAMON Stop: 02/17/21 23:00 Lidocaine/Sodium Bicarbonate (Lidocaine 1%/Sod Bicarbonate In Ns 8.4% 1 Ml Syringe) 0.25 ml IDERM ONETIME PRN PRN Reason: Prior to IV Start Stop: 02/17/21 23:00 Sodium Chloride (Sodium Chloride 0.9% 10 Ml Syringe) 10 ml FLUSH ASDIRECTED PRN PRN Reason: Keep Vein Open Stop: 02/17/21 23:00 Discontinued Medications Fentanyl (Fentanyl 100 Mcg/2 Ml Sdv) Confirm Administered Dose 100 mcg .ROUTE .STK-MED ONE Stop: 02/17/21 11:12 Lidocaine HCl (Xylocaine-Mpf 1%) Confirm Administered Dose 4 mls @ as directed .ROUTE .STK-MED ONE Stop: 02/17/21 11:11 Propofol (Propofol 200 Mg/20 Ml Sdv) Confirm Administered Dose 200 mg .ROUTE .STK-MED ONE Stop: 02/17/21 11:12
--- NOTE | 2021-02-17 12:56 | PCM.OPNOTE ---
- General Post-Op/Procedure Note Date of Surgery/Procedure: 02/17/21 Operative Procedure(s): EGD with balloon dilation Findings: 1. Esophageal stricture @ 31cm 2. Esophagitis in area of stricture with tissue changes 3. 3cm Sliding hiatal hernia 4. Gastritis 5. Duodenal polyps Pre Op Diagnosis: Dysphagia Post-Op Diagnosis: same Anesthesia Technique: RACHELLE Primary Surgeon: Meryl Whatley Anesthesia Provider: Dawn Mccormack Pathology: 1. Gastric antrum biopsies 2. Duodenal polyps 3. Stricture biopsy Fluid Replacement, Intraop: 400 Output, Urine Amount: 0 EBL in mLs: 0 Complications: none apparent Condition: Good
--- NOTE | 2021-02-17 12:58 | PCM.PRNOTE ---
- Free Text/Narrative Note: Operative Report Date of procedure: February 17, 2021 Preoperative diagnosis: Dysphagia Postoperative diagnosis: Same Surgeon: Meryl Whatley M.D. Procedure: EGD with balloon dilation Anesthesia: MAC Food Demonstrator: Dawn Mccormack CRNA IV fluids: 400 mL Estimated blood loss: 0 mL Findings: 1. Esophageal stricture @ 31cm 2. Esophagitis in area of stricture with tissue changes 3. 3cm Sliding hiatal hernia 4. Gastritis 5. Duodenal polyps Specimens: 1. Gastric antrum biopsies 2. Duodenal polyps 3. Stricture biopsy. Indication: The patient is an 80 -year-old lady who presented with continued dysphagia type symptoms. The patient's main problem is regurgitation of mucinous secretions. The patient was consented for an EGD with possible dilation. Risk of bleeding and perforation were discussed. The patient's consent was obtained. Description of the procedure: The patient was taken to the endoscopy suite and placed on hemodynamic monitoring. The nurse facilitator induced MAC anesthesia. A bite block was placed. The patient was positioned in the left lateral decubitus position. A timeout was performed. The endoscope was gently placed into the mouth to the back of the pharynx and introduced into the esophagus. The scope was gently advanced under direct visualization down to the level of the lower esophageal sphincter. A stricture was noted, but could be easily traversed with the endoscope. The stomach was then entered. Normal rugal folds were noted. The scope was advanced into the antrum. We noted some erythema consistent with gastritis. The pylorus was then entered and the first and second portion of the duodenum was inspected. We did note some polyps in the first portion of the duodenum, and two of these were removed with a cold biopsy forceps. There were no ulcerations in the duodenum. The scope was withdrawn to the antrum which was biopsied with cold biopsy forceps. The scope was then retroflexed in the cardia and fundus were investigated. There was evidence of a hiatal hernia on this view. No other abnormalities were noted. The scope was then withdrawn while inspecting the esophagus. The mucosa was irregular in this area consistent with esophagitis. This was biopsied with a cold biopsy forceps. The stricture was measured at 31 cm. It was dilated to 20mm with a [id number] balloon dilator. We measured the hiatal hernia at 3cm. The procedure was terminated. the patient tolerated the procedure well without any evidence of complications. Meryl Whatley MD General Surgery
--- NOTE | 2021-02-17 13:14 | PCM48HPAN ---
Post Anesthesia Note - EVALUATION WITHIN 48HRS OF ANESTHETIC Vital Signs in Normal Range: Yes Patient Participated in Evaluation: Yes Respiratory Function Stable: Yes Airway Patent: Yes Cardiovascular Function Stable: Yes Hydration Status Stable: Yes Pain Control Satisfactory: Yes Nausea and Vomiting Control Satisfactory: Yes Mental Status Recovered: Yes Vital Signs: Last Vital Signs Temp 36.3 C 02/17/21 12:52 Pulse 68 02/17/21 12:52 Resp 10 L 02/17/21 12:52 BP 119/75 02/17/21 12:52 Pulse Ox 94 L 02/17/21 12:52
[2021-02-17 14:31] VITALS: BP 114/64; PULSE 67
== END 2021-02-17 14:25 | disposition home or self-care (01) ==
LOC: JD.SDS 10:57
PROVIDERS: ATTEND Surgery
DX: K29.80 Duodenitis without bleeding (principal); K29.50 Unspecified chronic gastritis without bleeding; K20.90 Esophagitis, unspecified without bleeding; K22.2 Esophageal obstruction; K31.89 Other diseases of stomach and duodenum; K22.8 Other specified diseases of esophagus; K44.9 Diaphragmatic hernia without obstruction or gangrene; Z87.891 Personal history of nicotine dependence; Z98.890 Other specified postprocedural states; K31.7 Polyp of stomach and duodenum
CPT/HCPCS: 43239; 43249; 88305; 88342; J2704; J3010; J7120; 00731; 99100

== ENCOUNTER 2021-05-30 12:42 | Emergency (ER) | payer MEDICARE, OTHER ==
--- NOTE | 2021-05-30 13:54 | EDM.PDOC ---
ED HPI GENERAL MEDICAL PROBLEM - General Chief Complaint: Genitourinary Problem Stated Complaint: POSSIBLE UTI Time Seen by Provider: 05/30/21 13:54 Source of Information: Reports: Family (son--he is her corrective therapy aide.) History Limitations: Reports: Altered Mental Status (Patient has dementia and is much more lethargic the last couple of days.) - History of Present Illness INITIAL COMMENTS - FREE TEXT/NARRATIVE: 80-year-old female presents to the ED in the company of her son whom is her sole care provider at home. 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 Over the last few days she has become lethargic and not speaking and sleeping long periods of time. Of course not taking in adequate nutrition either. He reports when this occurs she often has a urinary tract infection. She seems to get 1 about every 6 weeks to 2 months. It is believed that she has a prolapse of the urinary bladder and uterus. Son has not appreciated any fever. She did take 15 ounces of fluid so far today. He states that she is not had a normal bowel movement for several weeks. He is concerned that she may have colon cancer. She is not a candidate for a sigmoidoscopy. She is on a bowel regimen with MiraLAX powder and prune juice. Onset: Gradual Onset Date: 05/28/21 Duration: Day(s):, Getting Worse Location: Reports: Other (Not talking per usual not eating per usual.) Quality: Reports: Other (General deterioration in cognitive function and ability to eat and drink.) Severity: Moderate Improves with: Reports: None Worsens with: Reports: None Context: Reports: Other (Dementia.). Denies: Activity, Exercise, Lifting, Sick Contact Associated Symptoms: Reports: Confusion, Loss of Appetite, Malaise, Weakness, Other (History of chronic constipation issues). Denies: Chest Pain (Oriented to time place), Cough, cough w sputum, Diaphoresis, Fever/Chills, Headaches, Nausea/Vomiting, Rash, Seizure, Shortness of Breath, Syncope Treatments SHIFT MANAGER: Reports: Other (see below) (The medications as below.) - Related Data Allergies Allergy/AdvReac Type Severity Reaction Status Date / Time No Known Allergies Allergy Verified 02/16/21 12:25 Home Meds: Home Meds Memantine HCl/Donepezil HCl [Namzaric 28 mg-10 mg Capsule] 1 each PO DAILY 04/22/17 [History] Omeprazole Magnesium [Prilosec Otc] 20 mg PO BID 02/28/19 [History] polyethylene glycoL 3350 [MiraLAX] 1 dose PO DAILY 02/28/19 [History] Cefdinir [Omnicef 250 MG/5 ML Susp] 300 mg PO BID #120 ml 05/30/21 [Rx] Past Medical History HEENT History: Reports: Other (See Below) Other HEENT History: unable to eat solid foods, drooling, loss of teeth, oral thrush Cardiovascular History: Reports: Blood Clots/VTE/DVT, Other (See Below) Other Cardiovascular History: blood clot to leg Respiratory History: Reports: PE Gastrointestinal History: Reports: Chronic Constipation, Fecal Incontinence, KOMAL D, GI Bleed, Hiatal Hernia, Other (See Below) Other Gastrointestinal History: esophageal stricture, GI bleed, esophagitis Genitourinary History: Reports: Urinary Incontinence, UTI, Recurrent BRUSH MAKER History: Reports: None Musculoskeletal History: Reports: Other (See Below) Other Musculoskeletal History: unable to walk, is w/c dependent 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 Psychiatric History: Reports: Alzheimers Disease Endocrine/Metabolic History: Reports: None Hematologic History: Reports: None Immunologic History: Reports: None Oncologic (Cancer) History: Reports: None, Other (See Below) 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" Dermatologic History: Reports: Other (See Below) Other Dermatologic History: blisters to right shoulder, eczema type rash to left shoulder - Infectious Disease History Infectious Disease History: Reports: None Other Infectious Disease History: unable to obtain - Past Surgical History Head Surgeries/Procedures: Reports: None HEENT Surgical History: Reports: Oral Surgery, Other (See Below) Other HEENT Surgeries/Procedures: has had esophageal dilation Respiratory Surgical History: Reports: None GI Surgical History: Reports: EGD, Other (See Below) Other GI Surgeries/Procedures: abdominal surgery Female Surgical History: Reports: None Male Surgical History: Reports: None Endocrine Surgical History: Reports: None Neurological Surgical History: Reports: None Musculoskeletal Surgical History: Reports: None Oncologic Surgical History: Reports: None Dermatological Surgical History: Reports: None Social & Family History - Family History Family Medical History: No Pertinent Family History - Caffeine Use Caffeine Use: Reports: None Other Caffeine Use: pt is on full liquid protein drinks - Living Situation & Occupation Living situation: Reports: , with Family (She lives with her son who cares for her.) Occupation: Retired ED ROS GENERAL - Review of Systems Review Of Systems: See Below Constitutional: Reports: Malaise, Weakness, Fatigue, Decreased Appetite. Denies: Fever, Chills HEENT: Reports: Glasses Respiratory: Reports: No Symptoms. Denies: Shortness of Breath, Cough Cardiovascular: Reports: Blood Pressure Problem, Lightheadedness. Denies: Chest Pain, Claudication, Dyspnea on Exertion, Orthopnea, Palpitations Endocrine: Reports: Fatigue GI/Abdominal: Reports: Constipation, Decreased Appetite : Reports: Frequency, Incontinence (Incontinent of urine and stool) Musculoskeletal: Reports: Joint Pain (Knees hips low back and neck at times) Skin: Reports: No Symptoms Neurological: Reports: Confusion, Dizziness, Weakness Psychiatric: Reports: Other Hematologic/Lymphatic: Reports: No Symptoms Immunologic: Reports: No Symptoms ED EXAM, GI/ABD - Physical Exam Exam: See Below Exam Limited By: Altered Mental Status (She does not answer any questions today. She did open her eyes. She did grab my hands when I was examining her chest with a stethoscope and her abdomen.) General Appearance: No Apparent Distress, Lethargic Eyes: Bilateral: Normal Appearance (No blepharal pallor. No scleral icterus) Throat/Mouth: Other (. She is a mouth breather and dries out her oropharynx) Head: Atraumatic, Normocephalic, Other (No outward signs of any head or facial trauma) Neck: Other (Not really able to assess range of motion). No: Carotid Bruit, Lymphadenopathy (L), Lymphadenopathy (R) Respiratory/Chest: Lungs Clear, Normal Breath Sounds. No: No Respiratory Distress, No Accessory Muscle Use, Respiratory Distress Cardiovascular: Normal Peripheral Pulses, Regular Rate, Rhythm, No Edema, No Gallop, No Murmur, No Rub GI/Abdominal Exam: Soft, Non-Tender, No Mass, Distended (Abdomen is mildly distended and tympanic to percussion.), Abnormal Bowel Sounds (Sounds are hyperactive in all 4 quadrants.). No: Hepatomegaly, Splenomegaly Back Exam: Other Extremities: Normal Inspection (Not able to examine), Normal Range of Motion, Non-Tender, No Pedal Edema Neurological: CN II-XII Intact, Normal Gait (Unable to evaluate), No Motor/Sensory Deficits ( unable to evaluate no obvious motor or sensory deficits as she moves all limbs upon stimulation), Disoriented (To time and place.). No: Alert, Oriented, Normal Cognition Psychiatric: Flat Affect, Other (Has Alzheimer's disease) Skin Exam: Dry, Intact, Cool (Extremities particularly hands are very cool to touch.), Pallor (Moderately pallid.) Course - Vital Signs Last Recorded V/S: Last Vital Signs Temp 35.6 C L 05/30/21 16:20 Pulse 65 05/30/21 16:20 Resp 20 05/30/21 16:20 BP 141/113 H 05/30/21 16:20 Pulse Ox 100 05/30/21 16:20 - Orders/Labs/Meds Orders: Active Orders 24 hr Category Date Time Status Insert Kelley Catheter [Insert Urinary Catheter] [OM.PC] Care 05/30/21 14:40 Ordered Stat Urinary Catheter Assessment [RC] ASDIRECTED Care 05/30/21 14:40 Active Abdomen 1V Flat [CR] Stat Exams 05/30/21 14:08 Taken CULTURE URINE [MREF] Stat Lab 05/30/21 14:40 Received Dextrose 5%-0.9% NaCl [Dextrose 5%-Normal Saline] 1,000 Med 05/30/21 14:15 Active ml IV ASDIRECTED Medication Orders Dextrose/Sodium Chloride (Dextrose 5%-Normal Saline) 1,000 mls @ 150 mls/hr IV ASDIRECTED RAMON [facility] Infusion: 05/30/21 16:20 Dose: 250 mls/hr Documented by: PO Admin: 05/30/21 14:40 Dose: 150 mls/hr Documented by: PO Labs: Laboratory Tests 05/30/21 05/30/21 05/30/21 Range/Units 14:40 15:53 15:53 WBC 3.87 L (3.98-10.04) K/mm3 RBC 4.55 (3.98-5.22) M/mm3 Hgb 12.5 D (11.2-15.7) gm/dl Hct 40.3 (34.1-44.9) % MCV 88.6 (79.4-94.8) fl MCH 27.5 (25.6-32.2) pg MCHC 31.0 L (32.2-35.5) g/dl RDW Std Deviation 49.4 H (36.4-46.3) fL Plt Count 199 (182-369) K/mm3 MPV 10.6 (9.4-12.3) fl Neut % (Auto) 60.3 (34.0-71.1) % Lymph % (Auto) 26.9 (19.3-51.7) % [place] % (Auto) 10.9 (4.7-12.5) % Eos % (Auto) 1.3 (0.7-5.8) Baso % (Auto) 0.3 (0.1-1.2) % Neut # (Auto) 2.34 (1.56-6.13) K/mm3 Lymph # (Auto) 1.04 L (1.18-3.74) K/mm3 [place] # (Auto) 0.42 H (0.24-0.36) K/mm3 Eos # (Auto) 0.05 (0.04-0.36) K/mm3 Baso # (Auto) 0.01 (0.01-0.08) K/mm3 Sodium 143 (136-145) mEq/L Potassium 4.6 (3.5-5.1) mEq/L Chloride 106 (98-107) mEq/L Carbon Dioxide 30 (21-32) mEq/L Anion Gap 11.6 (5-15) BUN 14 (7-18) mg/dL Creatinine 0.9 (0.55-1.02) mg/dL Est Cr Clr Drug Dosing 39.43 mL/min Estimated GFR (MDRD) > 60 (>60) mL/min BUN/Creatinine Ratio 15.6 (14-18) Glucose 142 H (70-99) mg/dL Calcium 9.3 (8.5-10.1) mg/dL Magnesium 2.3 (1.8-2.4) mg/dL Total Bilirubin 0.4 (0.2-1.0) mg/dL AST 24 (15-37) U/L ALT 29 (14-59) U/L Alkaline Phosphatase 105 (46-116) U/L C-Reactive Protein <0.2 (<1.0) mg/dL NT-Pro-B Natriuret Pep (0-450) pg/mL Total Protein 6.4 (6.4-8.2) g/dl Albumin 3.1 L (3.4-5.0) g/dl Globulin 3.3 gm/dL Albumin/Globulin Ratio 0.9 L (1-2) Urine Color Yellow (Yellow) Urine Appearance Slt cloudy H (Clear) Urine pH 7.0 (5.0-8.0) Ur Specific [place] 1.015 (1.005-1.030) Urine Protein Negative (Negative) Urine Glucose (UA) Negative (Negative) Urine Ketones Negative (Negative) Urine Occult Blood Trace-intact H (Negative) Urine Nitrite Positive H (Negative) Urine Bilirubin Negative (Negative) Urine Urobilinogen 0.2 (0.2-1.0) Ur Leukocyte Esterase 3+ H (Negative) Urine RBC 5-10 H (0-5) /hpf Urine WBC 30-40 H (0-5) /hpf Urine WBC Clumps Occasional (NOT SEEN) /hpf Ur Squamous Epith Cells 0-5 (0-5) /hpf Urine Bacteria Many H (FEW) /hpf Urine Mucus Not seen (FEW) /hpf 05/30/21 Range/Units 15:53 WBC (3.98-10.04) K/mm3 RBC (3.98-5.22) M/mm3 Hgb (11.2-15.7) gm/dl Hct (34.1-44.9) % MCV (79.4-94.8) fl MCH (25.6-32.2) pg MCHC (32.2-35.5) g/dl RDW Std Deviation (36.4-46.3) fL Plt Count (182-369) K/mm3 MPV (9.4-12.3) fl Neut % (Auto) (34.0-71.1) % Lymph % (Auto) (19.3-51.7) % [place] % (Auto) (4.7-12.5) % Eos % (Auto) (0.7-5.8) Baso % (Auto) (0.1-1.2) % Neut # (Auto) (1.56-6.13) K/mm3 Lymph # (Auto) (1.18-3.74) K/mm3 [place] # (Auto) (0.24-0.36) K/mm3 Eos # (Auto) (0.04-0.36) K/mm3 Baso # (Auto) (0.01-0.08) K/mm3 Sodium (136-145) mEq/L Potassium (3.5-5.1) mEq/L Chloride (98-107) mEq/L Carbon Dioxide (21-32) mEq/L Anion Gap (5-15) BUN (7-18) mg/dL Creatinine (0.55-1.02) mg/dL Est Cr Clr Drug Dosing mL/min Estimated GFR (MDRD) (>60) mL/min BUN/Creatinine Ratio (14-18) Glucose (70-99) mg/dL Calcium (8.5-10.1) mg/dL Magnesium (1.8-2.4) mg/dL Total Bilirubin (0.2-1.0) mg/dL AST (15-37) U/L ALT (14-59) U/L Alkaline Phosphatase (46-116) U/L C-Reactive Protein (<1.0) mg/dL NT-Pro-B Natriuret Pep 198 (0-450) pg/mL Total Protein (6.4-8.2) g/dl Albumin (3.4-5.0) g/dl Globulin gm/dL Albumin/Globulin Ratio (1-2) Urine Color (Yellow) Urine Appearance (Clear) Urine pH (5.0-8.0) Ur Specific [place] (1.005-1.030) Urine Protein (Negative) Urine Glucose (UA) (Negative) Urine Ketones (Negative) Urine Occult Blood (Negative) Urine Nitrite (Negative) Urine Bilirubin (Negative) Urine Urobilinogen (0.2-1.0) Ur Leukocyte Esterase (Negative) Urine RBC (0-5) /hpf Urine WBC (0-5) /hpf Urine WBC Clumps (NOT SEEN) /hpf Ur Squamous Epith Cells (0-5) /hpf Urine Bacteria (FEW) /hpf Urine Mucus (FEW) /hpf Meds: Medications Generic Name Dose Route Start Last Admin Trade Name Freq PRN Reason Stop Dose Admin Dextrose/Sodium Chloride 1,000 mls @ 150 mls/hr 05/30/21 14:15 05/30/21 16:20 Dextrose 5%-Normal Saline IV 250 mls/hr ASDIRECTED RAMON Infusion Discontinued Medications Generic Name Dose Route Start Last Admin Trade Name Rios PRN Reason Stop Dose Admin Cefdinir 300 mg 05/30/21 19:26 Cefdinir 300 Mg Cap PO 05/30/21 19:27 ONETIME ONE Ceftriaxone Sodium 2 gm/ 100 mls @ 200 mls/hr 05/30/21 16:08 05/30/21 16:20 Sodium Chloride IV 05/30/21 16:37 200 mls/hr ONETIME ONE Administration - Radiology Interpretation Free Text/Narrative:: 80-year-old female presents to the ED in the company of her son whom is her primary care provider. He indicates that often she develops a urinary tract infection which makes her lethargic and she is no longer able to be verbalize or communicate. This is what is transpired over the last 48 hours. He brought her to the ED for evaluation of dehydration, constipation, and possible urinary tract infection. The patient has underlying Alzheimer's disease he does not verbalize or communicate with me at all. She will grab my hand to pull away from the areas that I am examining with stethoscope. She does not appear to be in any discomfort or pain. Plan will be to obtain a cath urine specimen. She will have 1 view x-ray of her abdomen due to history of constipation and really increased bowel sounds today. Routine labs will also be performed. - Re-Assessments/Exams Free Text/Narrative Re-Assessment/Exam: 05/30/21 16:07 White count is 3.87 with a differential of 60% neutrophils. Hemoglobin is 12.5 with hematocrit of 40.3 platelet count is 199,000. Urinalysis obtained by catheterization slightly cloudy with positive nitrates and 3+ leukocyte esterase 5-10 RBCs per high-power field and 30-40 white blood cells per high-power field with many bacteria appreciated. Urine culture has been ordered. ABG reveals some increased stool in the descending colon and rectal vault but no sign of bowel obstruction. Patient will be given Rocephin 2 g intravenously. 05/30/21 16:15 Patient is much more verbal at this point in time. She seems to be able to communicate with her son. Most of her speech is gibberish. We will bump her IV up to 250 mils per hour. She will be given 2 g of Rocephin IV for urinary tract infection and hopefully she will be able to go home. Her chemistry is not yet available. 05/30/21 17:56 Sodium is 143 with a potassium of 4.6. Chloride is 106 with a bicarb of 30. Anion gap is 11.6. BUN is 14 with a creatinine of 0.9 and a GFR greater than 60. Glucose is 142. Calcium is 9.3. Magnesium is 2.3. Liver function is normal. C-reactive protein is less than 0.2 BNP is 198 total protein 6.4 with a low albumin fraction of 3.1. The micro in the urine shows 3+ leukocyte esterase 5-10 RBCs per high-power field and 30-40 white blood cells per high-power field with many bacteria present. 05/30/21 19:35 Patient is much more alert and her son is willing to take her home at this time. The plan will be to place her on Omnicef suspension 250 mg per 5 mils. She will take 6 mils twice a day for 8 days to clear up urinary tract infection. After this I have written a prescription for trimethoprim tablet 100 mg strength to be taken once daily at bedtime as a prophylaxis against recurrent urinary tract infection with 3 repeats on it. Departure - Departure Time of Disposition: 19:27 Disposition: Home, Self-Care 01 Condition: Fair Clinical Impression: Upper urinary tract infection - Discharge Information *PRESCRIPTION DRUG MONITORING PROGRAM REVIEWED*: Not Applicable *COPY OF PRESCRIPTION DRUG MONITORING REPORT IN PATIENT SANIA: Not Applicable Prescriptions: Cefdinir [Omnicef 250 MG/5 ML Susp] 300 mg PO BID #120 ml Instructions: Urinary Tract Infection, Adult, [id number] Referrals: Vivian Dunham NP [Primary Care Provider] - Forms: ED Department Discharge Additional Instructions: Evaluation in the emergency room today in regards to development of increasing lethargy and inability to eat and drink normally without an obvious fever. As you are aware she is prone to recurrent urinary tract infection and indeed this is what we found today. She has a large amount of bacteria and pus cells in the urine causing her current illness. Her blood pressure and other vital signs are stable. She has minimal congestive heart failure and no other major metabolic abnormalities. She was given an antibiotic called Rocephin 2 g intravenously which will last for the next 24 hours after this she will have to start another oral antibiotic called Omnicef. I have sent you home with a tablet of Omnicef which could be opened up and sprinkled into jam or jelly and taken about noon tomorrow. After this she will have to fill prescription for the same medication and she will need 6 mils twice daily of the suspension for the next 8 days to clear up infection completely. After this as we discussed she may start trimethoprim tablet which can be crushed as well and taken once daily ideally at bedtime to prevent recurrent urinary tract infections. Continue all other medications as before. Sepsis Event Note (ED) - Focused Exam Vital Signs: Vital Signs Temp Pulse Resp BP Pulse Ox 05/30/21 16:20 35.6 C L 65 20 141/113 H 100 - My Orders Last 24 Hours: My Active Orders 05/30/21 14:08 Abdomen 1V Flat [CR] Stat 05/30/21 14:15 Dextrose 5%-0.9% NaCl [Dextrose 5%-Normal Saline] 1,000 ml IV ASDIRECTED 05/30/21 14:40 Insert Kelley Catheter [Insert Urinary Catheter] [OM.PC] Stat Urinary Catheter Assessment [RC] ASDIRECTED CULTURE URINE [MREF] Stat - Assessment/Plan Last 24 Hours: My Active Orders 05/30/21 14:08 Abdomen 1V Flat [CR] Stat 05/30/21 14:15 Dextrose 5%-0.9% NaCl [Dextrose 5%-Normal Saline] 1,000 ml IV ASDIRECTED 05/30/21 14:40 Insert Kelley Catheter [Insert Urinary Catheter] [OM.PC] Stat Urinary Catheter Assessment [RC] ASDIRECTED CULTURE URINE [MREF] Stat
[2021-05-30] MEDS ORDERED: Dextrose 5%-0.9% NaCl 1,000 ML IV SCH (14:15)
[2021-05-30] MEDS ORDERED: cefTRIAXone 2 GM in Sodium Chloride 0.9% 100 ML IV ONE (16:08)
[2021-05-30 16:25] VITALS: PULSE 65
[2021-05-30] MEDS ORDERED: Cefdinir 300 MG Cap PO ONE (19:26)
[2021-05-30 20:47] VITALS: BP 136/56
--- NOTE | 2021-05-31 11:10 | CR ---
Abdomen: Supine view of the abdomen was obtained. Comparison: Prior abdominal x-ray of 01/08/21. Bowel gas pattern appears within normal limits. Minimal phleboliths are seen within the pelvis. Sclerotic area is seen within the pelvis which is stable. No soft tissue abnormality is appreciated. No acute bony abnormality is seen. Impression: 1. Nothing acute is seen on supine abdominal x-ray. Diagnostic code #2
== END 2021-05-30 20:15 | disposition home or self-care (01) ==
LOC: JD.ED 12:42
DX: N39.0 Urinary tract infection, site not specified (principal); R41.82 Altered mental status, unspecified; G30.9 Alzheimer's disease, unspecified; F02.80 Dementia in other diseases classified elsewhere, unspecified severity, without behavioral disturbance, psychotic disturbance, mood disturbance, and anxiety; K21.9 Gastro-esophageal reflux disease without esophagitis; Z79.899 Other long term (current) drug therapy
CPT/HCPCS: 36415; 74018; 80053; 81001; 83735; 83880; 85025; 86140; 87086; 87088; 87186; 96365; 99284; A9270; J0696; J7042; 99283

== ENCOUNTER 2021-06-26 17:39 | Emergency (ER) | payer MEDICARE, OTHER ==
--- NOTE | 2021-06-26 18:22 | EDM.PDOC ---
ED HPI GENERAL MEDICAL PROBLEM - General Chief Complaint: Behavioral/Psych Stated Complaint: [facility] Time Seen by Provider: 06/26/21 18:10 Source of Information: Reports: EMS, Family History Limitations: Reports: Altered Mental Status - History of Present Illness INITIAL COMMENTS - FREE TEXT/NARRATIVE: Pt brought in by ambulance to the they told the nurse that they brought her here for evaluation because her son wanted her checked out getting for information from the patient because she is altered with history of dementia. Her son arrived patient has been more confused lately she does have some mild dementia already he is very worried that he has Covid and she might have Covid as well. Unknown Covid vaccine status however. Onset: Unknown/Unsure - Related Data Allergies Allergy/AdvReac Type Severity Reaction Status Date / Time No Known Allergies Allergy Verified 06/26/21 18:26 Home Meds: Home Meds Memantine HCl/Donepezil HCl [Namzaric 28 mg-10 mg Capsule] 1 each PO DAILY 04/22/17 [History] Omeprazole Magnesium [Prilosec Otc] 20 mg PO BID 02/28/19 [History] polyethylene glycoL 3350 [MiraLAX] 1 dose PO DAILY 02/28/19 [History] Famotidine [Pepcid] 20 mg PO DAILY 06/26/21 [History] Sulfamethoxazole/Trimethoprim [Sulfamethoxazole-Tmp Ds Tablet] 1 tab PO DAILY 06/26/21 [History] Past Medical History HEENT History: Reports: Other (See Below) Other HEENT History: unable to eat solid foods, drooling, loss of teeth, oral thrush Cardiovascular History: Reports: Blood Clots/VTE/DVT, Other (See Below) Other Cardiovascular History: blood clot to leg Respiratory History: Reports: PE Gastrointestinal History: Reports: Chronic Constipation, Fecal Incontinence, GERD, GI Bleed, Hiatal Hernia, Other (See Below) Other Gastrointestinal History: esophageal stricture, GI bleed, esophagitis Genitourinary History: Reports: Urinary Incontinence, UTI, Recurrent [employer] History: Reports: None Musculoskeletal History: Reports: Other (See Below) Other Musculoskeletal History: unable to walk, is w/c dependent 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 Psychiatric History: Reports: Alzheimers Disease Endocrine/Metabolic History: Reports: None Hematologic History: Reports: None Immunologic History: Reports: None Oncologic (Cancer) History: Reports: None, Other (See Below) 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" Dermatologic History: Reports: Other (See Below) Other Dermatologic History: blisters to right shoulder, eczema type rash to left shoulder - Infectious Disease History Infectious Disease History: Reports: None Other Infectious Disease History: unable to obtain - Past Surgical History Head Surgeries/Procedures: Reports: None HEENT Surgical History: Reports: Oral Surgery, Other (See Below) Other HEENT Surgeries/Procedures: has had esophageal dilation Respiratory Surgical History: Reports: None GI Surgical History: Reports: EGD, Other (See Below) Other GI Surgeries/Procedures: abdominal surgery Female Surgical History: Reports: None Endocrine Surgical History: Reports: None Neurological Surgical History: Reports: None Musculoskeletal Surgical History: Reports: None Oncologic Surgical History: Reports: None Dermatological Surgical History: Reports: None Social & Family History - Family History Family Medical History: No Pertinent Family History - Caffeine Use Caffeine Use: Reports: Coffee Other Caffeine Use: pt is on full liquid protein drinks - Living Situation & Occupation Living situation: Reports: , with Family (She lives with her son who cares for her.) Occupation: Retired ED ROS GENERAL - Review of Systems Review Of Systems: Unable To Obtain Reason Not Obtained: History of dementia altered mental status ED EXAM, GENERAL - Physical Exam Exam: See Below Exam Limited By: Altered Mental Status General Appearance: No Apparent Distress Eye Exam: Bilateral Eye: PERRL Head: Atraumatic Neck: Normal Inspection Respiratory/Chest: No Respiratory Distress, No Accessory Muscle Use Cardiovascular: Normal Peripheral Pulses GI/Abdominal: Normal Bowel Sounds, Soft, Non-Tender, No Distention Extremities: Normal Inspection, No Pedal Edema Neurological: Slow to Respond, Other (Patient moves all extremities however is not able to open her eyes or follow commands uncertain her normal baseline.) Course - Vital Signs Text/Narrative:: We will need to get more history suspect the patient may have Covid, will get a Covid swab, screen basic labs she does appear dehydrated. Last Recorded V/S: Last Vital Signs Temp 97.9 F 06/26/21 18:21 Pulse 86 06/26/21 18:21 Resp 20 06/26/21 18:21 BP 103/78 06/26/21 18:21 Pulse Ox 92 L 06/26/21 18:21 - Orders/Labs/Meds Orders: Active Orders 24 hr Category Date Time Status Peripheral IV Care [RC] . DIRECTED Care 06/26/21 18:26 Active Vital Signs [RC] Q15M Care 06/26/21 21:30 Ordered CXR [Chest 1V Frontal] [CR] Stat Exams 06/26/21 18:24 Taken Head wo Cont [CT] Stat Exams 06/26/21 19:09 Ordered PROCALCITONIN [REF] Stat Lab 06/26/21 19:32 Received UA RFX CESIA AND CULT IF INDIC [URIN] Stat Lab 06/26/21 18:24 Ordered EPINEPHrine [Adrenalin] Med 06/26/21 21:30 Ordered 0.3 mg IM ONETIME PRN Famotidine [Pepcid] Med 06/26/21 21:30 Ordered 20 mg IVPUSH ONETIME PRN REGEN-COV 600mg/600mg in NS 0.9% @ 220 MLS/HR(100ml) Med 06/26/21 21:30 Ordered Casirivimab/Imdevimab [Regen-Cov 600-600 mg/10Ml (Eua)] 10 ml Sodium Chloride 0.9% [Normal Saline] 100 ml IV ONETIME Sodium Chloride 0.9% [Saline Flush] Med 06/26/21 18:26 Active 10 ml FLUSH ASDIRECTED PRN Sodium Chloride 0.9% [Saline Flush] Med 06/26/21 21:30 Ordered 30 ml FLUSH ASDIRECTED diphenhydrAMINE [Benadryl] Med 06/26/21 21:30 Ordered 50 mg IVPUSH ONETIME PRN methylPREDNISolone Sod Succ [Solu-MEDROL] Med 06/26/21 21:30 Ordered 125 mg IVPUSH ONETIME PRN Peripheral IV Insertion Adult [OM.PC] Stat Oth 06/26/21 18:24 Ordered EKG 12 Lead [EK] Stat Ther 06/26/21 18:24 Ordered Medication Orders Diphenhydramine HCl (Diphenhydramine 50 Mg/Ml Sdv) 50 mg IVPUSH ONETIME PRN PRN Reason: hypersensitivity reaction Epinephrine HCl (Epinephrine 1 Mg/Ml Sdv) 0.3 mg IM ONETIME PRN PRN Reason: hypersensitivity reaction Famotidine (Famotidine 20 Mg/2 Ml Sdv) 20 mg IVPUSH ONETIME PRN PRN Reason: hypersensitivity reaction CASIRIVIMAB/IMDEVIMAB 10 ml/ (Sodium Chloride) 110 mls @ 220 mls/hr IV ONETIME ONE Stop: 06/26/21 21:59 Methylprednisolone Sodium Succinate (Methylprednisolone Sodium Succinate 125 Mg/2 Ml Sdv) 125 mg IVPUSH ONETIME PRN PRN Reason: hypersensitivity reaction Sodium Chloride (Sodium Chloride 0.9% 10 Ml Syringe) 10 ml FLUSH ASDIRECTED PRN PRN Reason: Keep Vein Open Last Admin: 06/26/21 19:09 Dose: 10 ml Documented by: SUBHASH Sodium Chloride (Sodium Chloride 0.9% 10 Ml Syringe) 30 ml FLUSH ASDIRECTED RAMON Labs: Laboratory Tests 06/26/21 06/26/21 06/26/21 Range/Units 18:20 19:32 19:32 WBC 4.08 (3.98-10.04) K/mm3 RBC 4.40 (3.98-5.22) M/mm3 Hgb 12.1 (11.2-15.7) gm/dl Hct 38.0 (34.1-44.9) % MCV 86.4 (79.4-94.8) fl MCH 27.5 (25.6-32.2) pg MCHC 31.8 L (32.2-35.5) g/dl RDW Std Deviation 47.3 H (36.4-46.3) fL Plt Count 146 L (182-369) K/mm3 MPV 11.2 (9.4-12.3) fl Neut % (Auto) 70.4 (34.0-71.1) % Lymph % (Auto) 14.2 L (19.3-51.7) % [place] % (Auto) 15.0 H (4.7-12.5) % Eos % (Auto) 0 L (0.7-5.8) Baso % (Auto) 0.2 (0.1-1.2) % Neut # (Auto) 2.87 (1.56-6.13) K/mm3 Lymph # (Auto) 0.58 L (1.18-3.74) K/mm3 [place] # (Auto) 0.61 H (0.24-0.36) K/mm3 Eos # (Auto) 0.00 L (0.04-0.36) K/mm3 Baso # (Auto) 0.01 (0.01-0.08) K/mm3 Sodium 129 L D (136-145) mEq/L Potassium 4.0 (3.5-5.1) mEq/L Chloride 97 L (98-107) mEq/L Carbon Dioxide 22 (21-32) mEq/L Anion Gap 14.0 (5-15) BUN 17 (7-18) mg/dL Creatinine 1.0 (0.55-1.02) mg/dL Est Cr Clr Drug Dosing 35.49 mL/min Estimated GFR (MDRD) 53 (>60) mL/min BUN/Creatinine Ratio 17.0 (14-18) Glucose 96 (70-99) mg/dL Calcium 8.8 (8.5-10.1) mg/dL Total Bilirubin 0.4 (0.2-1.0) mg/dL AST 26 (15-37) U/L ALT 17 (14-59) U/L Alkaline Phosphatase 90 (46-116) U/L Troponin I < 0.017 (0.00-0.056) ng/mL C-Reactive Protein 7.0 H* (<1.0) mg/dL Total Protein 6.4 (6.4-8.2) g/dl Albumin 2.8 L (3.4-5.0) g/dl Globulin 3.6 gm/dL Albumin/Globulin Ratio 0.8 L (1-2) SARS-CoV-2 RNA (CRISTOBAL) Positive H (NEGATIVE) Meds: Medications Generic Name Dose Route Start Last Admin Trade Name Freq PRN Reason Stop Dose Admin Diphenhydramine HCl 50 mg 06/26/21 21:30 Diphenhydramine 50 Mg/Ml Sdv IVPUSH ONETIME PRN hypersensitivity reaction Epinephrine HCl 0.3 mg 06/26/21 21:30 Epinephrine 1 Mg/Ml Sdv IM ONETIME PRN hypersensitivity reaction Famotidine 20 mg 06/26/21 21:30 Famotidine 20 Mg/2 Ml Sdv IVPUSH ONETIME PRN hypersensitivity reaction CASIRIVIMAB/IMDEVIMAB 10 ml/ 110 mls @ 220 mls/hr 06/26/21 21:30 Sodium Chloride IV 06/26/21 21:59 ONETIME ONE Methylprednisolone Sodium Succinate 125 mg 06/26/21 21:30 Methylprednisolone Sodium Succinate 125 Mg/2 Ml Sdv IVPUSH ONETIME PRN hypersensitivity reaction Sodium Chloride 10 ml 06/26/21 18:26 06/26/21 19:09 Sodium Chloride 0.9% 10 Ml Syringe FLUSH 10 ml ASDIRECTED PRN Administration Keep Vein Open Sodium Chloride 30 ml 06/26/21 21:30 Sodium Chloride 0.9% 10 Ml Syringe FLUSH ASDIRECTED RAMON Discontinued Medications Generic Name Dose Route Start Last Admin Trade Name Rios PRN Reason Stop Dose Admin Sodium Chloride 500 mls @ 999 mls/hr 06/26/21 18:25 06/26/21 19:09 Normal Saline IV 06/26/21 18:55 999 mls/hr ONETIME ONE Administration - Re-Assessments/Exams Free Text/Narrative Re-Assessment/Exam: 06/26/21 19:11 We will have to sign out the patient to Dr. Teixeira at the end of my shift for further evaluation and evaluation of the lab results including her CT head, laboratory studies Covid testing and urinalysis. 06/26/21 21:29 Positive Covid patient would benefit from Regeneron. Reviewed the risk benefits alternatives with the son and start infusion. 06/26/21 21:46 The case with Juvencio the patient's son and caregiver. Patient is a DNI DNR, did review the risk benefits alternatives to Regeneron with him understanding the risks but at this point the benefits seem to be greater, patient did have a donor vaccine x2 already. Patient's son Ubaldo just got diagnosed today with Covid as well. Reviewed keeping patient hydrated watching for signs of increasing work of breathing or worsening conditions and return precautions. Departure - Departure Time of Disposition: 23:00 Disposition: Home, Self-Care 01 Condition: Good, Serious Clinical Impression: COVID Dementia Qualifiers: Dementia type: unspecified type Dementia behavioral disturbance: without behavioral disturbance Qualified Code(s): F03.90 - Unspecified dementia without behavioral disturbance Altered mental status, unspecified Qualifiers: Altered mental status type: transient alteration of awareness Qualified Code(s): R40.4 - Transient alteration of awareness - Discharge Information Instructions: COVID-19 Frequently Asked Questions, Prone Position Therapy, COVID-19: How to Protect Yourself and Others - CDC Forms: ED Department Discharge Additional Instructions: Rest and make sure she drinks plenty of water and fluids. Monitor her breathing status and if she has any increasing work of breathing coughing or increasing generalized weakness consider reevaluation. Sitter extra zinc and vitamin C supplements. Return to the emergency room with any increasing work of breathing, coughing and unable to get to catch her breath, fevers greater than 102, increasing weakness not taking fluids getting dehydrated or worsening symptoms. Sepsis Event Note (ED) - Focused Exam Vital Signs: Vital Signs Temp Pulse Resp BP Pulse Ox 06/26/21 18:21 97.9 F 86 20 103/78 92 L - My Orders Last 24 Hours: My Active Orders 06/26/21 18:24 CXR [Chest 1V Frontal] [CR] Stat UA RFX CESIA AND CULT IF INDIC [URIN] Stat Peripheral IV Insertion Adult [OM.PC] Stat EKG 12 Lead [EK] Stat 06/26/21 18:26 Peripheral IV Care [RC] . DIRECTED Sodium Chloride 0.9% [Saline Flush] 10 ml FLUSH ASDIRECTED PRN 06/26/21 19:09 Head wo Cont [CT] Stat 06/26/21 19:32 PROCALCITONIN [REF] Stat 06/26/21 21:30 Vital Signs [RC] Q15M EPINEPHrine [Adrenalin] 0.3 mg IM ONETIME PRN Famotidine [Pepcid] 20 mg IVPUSH ONETIME PRN REGEN-COV 600mg/600mg in NS 0.9% @ 220 MLS/HR(100ml) Casirivimab/Imdevimab [Regen-Cov 600-600 mg/10Ml (Eua)] 10 ml Sodium Chloride 0.9% [Normal Saline] 100 ml IV ONETIME Sodium Chloride 0.9% [Saline Flush] 30 ml FLUSH ASDIRECTED diphenhydrAMINE [Benadryl] 50 mg IVPUSH ONETIME PRN methylPREDNISolone Sod Succ [Solu-MEDROL] 125 mg IVPUSH ONETIME PRN - Assessment/Plan Last 24 Hours: My Active Orders 06/26/21 18:24 CXR [Chest 1V Frontal] [CR] Stat UA RFX CESIA AND CULT IF INDIC [URIN] Stat Peripheral IV Insertion Adult [OM.PC] Stat EKG 12 Lead [EK] Stat 06/26/21 18:26 Peripheral IV Care [RC] . DIRECTED Sodium Chloride 0.9% [Saline Flush] 10 ml FLUSH ASDIRECTED PRN 06/26/21 19:09 Head wo Cont [CT] Stat 06/26/21 19:32 PROCALCITONIN [REF] Stat 06/26/21 21:30 Vital Signs [RC] Q15M EPINEPHrine [Adrenalin] 0.3 mg IM ONETIME PRN Famotidine [Pepcid] 20 mg IVPUSH ONETIME PRN REGEN-COV 600mg/600mg in NS 0.9% @ 220 MLS/HR(100ml) Casirivimab/Imdevimab [Regen-Cov 600-600 mg/10Ml (Eua)] 10 ml Sodium Chloride 0.9% [Normal Saline] 100 ml IV ONETIME Sodium Chloride 0.9% [Saline Flush] 30 ml FLUSH ASDIRECTED diphenhydrAMINE [Benadryl] 50 mg IVPUSH ONETIME PRN methylPREDNISolone Sod Succ [Solu-MEDROL] 125 mg IVPUSH ONETIME PRN
[2021-06-26] MEDS ORDERED: Sodium Chloride 0.9% 500 ML IV ONE (18:25)
[2021-06-26] MEDS ORDERED: Sodium Chloride 0.9% 10 ML Syringe FLUSH PRN (18:26)
[2021-06-26] MEDS ORDERED: EPINEPHrine 1 MG/ML SDV IM PRN (21:30)
[2021-06-26] MEDS ORDERED: methylPREDNISolone Sodium Succinate 125 MG/2 ML SDV IVPUSH PRN (21:30)
[2021-06-26] MEDS ORDERED: Sodium Chloride 0.9% 10 ML Syringe FLUSH SCH (21:30)
[2021-06-26] MEDS ORDERED: Famotidine 20 MG/2 ML SDV IVPUSH PRN (21:30)
[2021-06-26] MEDS ORDERED: diphenhydrAMINE 50 MG/ML SDV IVPUSH PRN (21:30)
[2021-06-26 23:37] VITALS: PULSE 90
[2021-06-27 00:05] VITALS: BP 108/70
--- NOTE | 2021-06-27 08:41 | CT ---
Head CT Technique: Multiple axial sections through the brain were obtained. Intravenous contrast was not utilized. Reconstructed coronal and sagittal images were obtained. Comparison: Prior head CT study of 01/12/19. Findings: Ventricles along with basal cisterns and sulci over the convexities are within normal limits for the patient's age. Scattered areas of diminished density are noted within the periventricular white matter which is most likely due to small vessel ischemic demyelination change. Old lacunar infarct is noted within the centrum semi-ovale on the left side. No other abnormal parenchymal densities are seen. No evidence of intracranial hemorrhage is seen. No midline shift or mass-effect is seen. Bony density is seen off the inner calvarium within the right frontal region most likely representing a old calcified meningioma. No acute calvarial abnormality is seen. Visualized mastoid sinuses and paranasal sinuses show nothing acute. Impression: 1. Senescent change as described above. 2. 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 3. No acute intracranial abnormality is appreciated. Diagnostic code #2
--- NOTE | 2021-06-27 08:52 | CR ---
Chest: Portable view of the chest was obtained. Comparison: Prior chest x-ray of 04/23/19. Heart size and mediastinum are within normal limits. Lungs show no acute parenchymal change. Small azygos lobe is noted. Bony structures are osteopenic. No acute osseous abnormality is appreciated. Impression: 1. Nothing acute is seen on portable chest x-ray. Diagnostic code #2
== END 2021-06-27 00:02 | disposition home or self-care (01) ==
LOC: JD.ED 17:39
DX: U07.1 COVID-19 (principal); F03.90 Unspecified dementia, unspecified severity, without behavioral disturbance, psychotic disturbance, mood disturbance, and anxiety; K21.9 Gastro-esophageal reflux disease without esophagitis; Z79.899 Other long term (current) drug therapy
CPT/HCPCS: 36415; 70450; 71045; 80053; 81003; 84145; 84484; 85025; 86140; 93005; 99285; J7030; M0243; Q0243; U0002

== ENCOUNTER 2021-06-28 16:37 | Emergency (ER) | payer MEDICARE, OTHER ==
[2021-06-28 16:53] VITALS: BP 100/70; PULSE 74
[2021-06-28] MEDS: Sodium Chloride 0.9% 10 ML Syringe FLUSH PRN ×2 (17:25→20:08)
--- NOTE | 2021-06-28 17:45 | EDM.PDOC ---
ED HPI GENERAL MEDICAL PROBLEM - General Chief Complaint: Respiratory Problem Stated Complaint: [facility] Time Seen by Provider: 06/28/21 16:41 Source of Information: Reports: EMS, Family History Limitations: Reports: No Limitations - History of Present Illness INITIAL COMMENTS - FREE TEXT/NARRATIVE: 80-year-old female presents the emergency department via [facility]. Patient's son is her primary caregiver at home and states that she is normally fairly lethargic and unresponsive. He has been her caregiver for the past 8 years. He states at times he can get her to ambulate however she is primarily unresponsive at home. Patient was seen here 2 days ago and tested positive for Covid. At that time she did receive Regeneron treatment. She does have a h istory of underlying dementia. - Related Data Allergies Allergy/AdvReac Type Severity Reaction Status Date / Time No Known Allergies Allergy Verified 06/26/21 18:26 Home Meds: Home Meds Memantine HCl/Donepezil HCl [Namzaric 28 mg-10 mg Capsule] 10 - 28 mg PO DAILY 04/22/17 [History] Omeprazole Magnesium [Prilosec Otc] 20 mg PO BID 02/28/19 [History] polyethylene glycoL 3350 [MiraLAX] 1 dose PO DAILY 02/28/19 [History] Famotidine [Pepcid] 20 mg PO BID 06/26/21 [History] Sulfamethoxazole/Trimethoprim [Sulfamethoxazole-Tmp Ds Tablet] 0.5 tab PO BEDTIME 06/26/21 [History] Past Medical History HEENT History: Reports: Other (See Below) Other HEENT History: unable to eat solid foods, drooling, loss of teeth, oral thrush Cardiovascular History: Reports: Blood Clots/VTE/DVT, Other (See Below) Other Cardiovascular History: blood clot to leg Respiratory History: Reports: PE Gastrointestinal History: Reports: Chronic Constipation, Fecal Incontinence, GE RD, GI Bleed, Hiatal Hernia, Other (See Below) Other Gastrointestinal History: esophageal stricture, GI bleed, esophagitis Genitourinary History: Reports: Urinary Incontinence, UTI, Recurrent 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" Dermatologic History: Reports: Other (See Below) Other Dermatologic History: blisters to right shoulder, eczema type rash to left shoulder - Infectious Disease History Infectious Disease History: Reports: Novel Coronavirus Other Infectious Disease History: unable to obtain - Past Surgical History HEENT Surgical History: Reports: Oral Surgery, Other (See Below) Other HEENT Surgeries/Procedures: has had esophageal dilation GI Surgical History: Reports: EGD, Other (See Below) Other GI Surgeries/Procedures: abdominal surgery Female Surgical History: Reports: Hysterectomy, Other (See Below) Other Female Surgeries/Procedures: cervical cancer Social & Family History - Family History Family Medical History: No Pertinent Family History - Tobacco Use Tobacco Use Status *Q: Never Tobacco User Second Hand Smoke Exposure: No - Caffeine Use Caffeine Use: Reports: None Other Caffeine Use: pt is on full liquid protein drinks - Recreational Drug Use Recreational Drug Use: No - Living Situation & Occupation Living situation: Reports: , with Family (She lives with her son who cares for her.) Occupation: Retired ED ROS GENERAL - Review of Systems Review Of Systems: Comprehensive ROS is negative, except as noted in HPI. ED EXAM, GENERAL - Physical Exam Exam: See Below Exam Limited By: Other (Patient is lethargic with snoring respirations.) General Appearance: Lethargic Eye Exam: Bilateral Eye: PERRL Ears: Normal External Exam Nose: Normal Inspection Throat/Mouth: Normal Inspection, Normal Lips, No Airway Compromise Head: Atraumatic Neck: Normal Inspection, Supple Respiratory/Chest: No Respiratory Distress, Normal Breath Sounds, No Accessory Muscle Use, Chest Non-Tender, Crackles (Bases) Cardiovascular: Normal Peripheral Pulses, Regular Rate, Rhythm, No Edema, No Murmur Peripheral Pulses: 2+: Radial (L), Radial (R) GI/Abdominal: Normal Bowel Sounds, Soft, Non-Tender, No Distention (Female) Exam: Deferred Rectal (Female) Exam: Deferred Back Exam: Normal Inspection Extremities: Normal Inspection Neurological: Unresponsive (Responds to painful stimuli) Skin Exam: Warm, Dry, Intact, Normal Color, No Rash Lymphatic: No Adenopathy Course - Vital Signs Text/Narrative:: As stated above, patient presents via [facility] due to the patient's son being worried about her having Covid. Upon my exam, the patient's O2 saturations are 92% on room air. She does have snoring respirations however she does open her eyes to painful stimuli. She also pulls away from any painful stimuli. She however does not follow any commands. Physical exam is otherwise unremarkable. I have ordered labs to include a CBC, CMP, magnesium, C-reactive protein, urinalysis with micro and culture if indicated as well as a portable chest x-ray. Last Recorded V/S: Last Vital Signs Temp 97.1 F 06/28/21 16:37 Pulse 74 06/28/21 16:37 Resp 28 H 06/28/21 16:37 BP 100/70 06/28/21 16:37 Pulse Ox 95 06/28/21 16:37 - Orders/Labs/Meds Orders: Active Orders 24 hr Category Date Time Status Sodium Chloride 0.9% [Normal Saline] 100 ml Med 06/28/21 20:15 Active IV ASDIRECTED Sodium Chloride 0.9% [Saline Flush] Med 06/28/21 17:12 Active 10 ml FLUSH ASDIRECTED PRN Saline Lock Insert [OM.PC] Stat Oth 06/28/21 17:12 Ordered Medication Orders Sodium Chloride (Normal Saline) 100 mls @ 60 mls/min IV ASDIRECTED RAMON Last Admin: 06/28/21 20:08 Dose: 60 mls/min Documented by: BON Sodium Chloride (Sodium Chloride 0.9% 10 Ml Syringe) 10 ml FLUSH ASDIRECTED PRN PRN Reason: Keep Vein Open Last Admin: 06/28/21 20:08 Dose: 10 ml Documented by: Admin: 06/28/21 17:25 Dose: 10 ml Documented by: PO Labs: Laboratory Tests 06/28/21 06/28/21 06/28/21 Range/Units 17:25 17:25 17:25 WBC 3.96 L (3.98-10.04) K/mm3 RBC 4.29 (3.98-5.22) M/mm3 Hgb 11.7 (11.2-15.7) gm/dl Hct 36.5 (34.1-44.9) % MCV 85.1 (79.4-94.8) fl MCH 27.3 (25.6-32.2) pg MCHC 32.1 L (32.2-35.5) g/dl RDW Std Deviation 45.1 (36.4-46.3) fL Plt Count 135 L (182-369) K/mm3 MPV 11.2 (9.4-12.3) fl Neut % (Auto) 67.6 (34.0-71.1) % Lymph % (Auto) 18.7 L (19.3-51.7) % [place] % (Auto) 13.4 H (4.7-12.5) % Eos % (Auto) 0 L (0.7-5.8) Baso % (Auto) 0.0 L (0.1-1.2) % Neut # (Auto) 2.68 (1.56-6.13) K/mm3 Lymph # (Auto) 0.74 L (1.18-3.74) K/mm3 [place] # (Auto) 0.53 H (0.24-0.36) K/mm3 Eos # (Auto) 0.00 L (0.04-0.36) K/mm3 Baso # (Auto) 0.00 L (0.01-0.08) K/mm3 D-Dimer, Quantitative 1.25 H (0.19-0.50) mg/L Sodium 131 L (136-145) mEq/L Potassium 3.7 (3.5-5.1) mEq/L Chloride 99 (98-107) mEq/L Carbon Dioxide 27 (21-32) mEq/L Anion Gap 8.7 (5-15) BUN 16 (7-18) mg/dL Creatinine 1.1 H (0.55-1.02) mg/dL Est Cr Clr Drug Dosing TNP Estimated GFR (MDRD) 48 (>60) mL/min BUN/Creatinine Ratio 14.5 (14-18) Glucose 105 H (70-99) mg/dL Calcium 8.7 (8.5-10.1) mg/dL Magnesium 2.1 (1.8-2.4) mg/dL Total Bilirubin 0.3 (0.2-1.0) mg/dL AST 29 (15-37) U/L ALT 25 (14-59) U/L Alkaline Phosphatase 74 (46-116) U/L Troponin I < 0.017 (0.00-0.056) ng/mL C-Reactive Protein 9.8 H* (<1.0) mg/dL Total Protein 6.1 L (6.4-8.2) g/dl Albumin 2.6 L (3.4-5.0) g/dl Globulin 3.5 gm/dL Albumin/Globulin Ratio 0.7 L (1-2) Urine Color (Yellow) Urine Appearance (Clear) Urine pH (5.0-8.0) Ur Specific [place] (1.005-1.030) Urine Protein (Negative) Urine Glucose (UA) (Negative) Urine Ketones (Negative) Urine Occult Blood (Negative) Urine Nitrite (Negative) Urine Bilirubin (Negative) Urine Urobilinogen (0.2-1.0) Ur Leukocyte Esterase (Negative) Urine RBC (0-5) /hpf Urine WBC (0-5) /hpf Ur Squamous Epith Cells (0-5) /hpf Urine Bacteria (FEW) /hpf Urine Mucus (FEW) /hpf 06/28/21 Range/Units 18:27 WBC (3.98-10.04) K/mm3 RBC (3.98-5.22) M/mm3 Hgb (11.2-15.7) gm/dl Hct (34.1-44.9) % MCV (79.4-94.8) fl MCH (25.6-32.2) pg MCHC (32.2-35.5) g/dl RDW Std Deviation (36.4-46.3) fL Plt Count (182-369) K/mm3 MPV (9.4-12.3) fl Neut % (Auto) (34.0-71.1) % Lymph % (Auto) (19.3-51.7) % [place] % (Auto) (4.7-12.5) % Eos % (Auto) (0.7-5.8) Baso % (Auto) (0.1-1.2) % Neut # (Auto) (1.56-6.13) K/mm3 Lymph # (Auto) (1.18-3.74) K/mm3 [place] # (Auto) (0.24-0.36) K/mm3 Eos # (Auto) (0.04-0.36) K/mm3 Baso # (Auto) (0.01-0.08) K/mm3 D-Dimer, Quantitative (0.19-0.50) mg/L Sodium (136-145) mEq/L Potassium (3.5-5.1) mEq/L Chloride (98-107) mEq/L Carbon Dioxide (21-32) mEq/L Anion Gap (5-15) BUN (7-18) mg/dL Creatinine (0.55-1.02) mg/dL Est Cr Clr Drug Dosing Estimated GFR (MDRD) (>60) mL/min BUN/Creatinine Ratio (14-18) Glucose (70-99) mg/dL Calcium (8.5-10.1) mg/dL Magnesium (1.8-2.4) mg/dL Total Bilirubin (0.2-1.0) mg/dL AST (15-37) U/L ALT (14-59) U/L Alkaline Phosphatase (46-116) U/L Troponin I (0.00-0.056) ng/mL C-Reactive Protein (<1.0) mg/dL Total Protein (6.4-8.2) g/dl Albumin (3.4-5.0) g/dl Globulin gm/dL Albumin/Globulin Ratio (1-2) Urine Color Yellow (Yellow) Urine Appearance Clear (Clear) Urine pH 6.0 (5.0-8.0) Ur Specific [place] 1.020 (1.005-1.030) Urine Protein Trace H (Negative) Urine Glucose (UA) Negative (Negative) Urine Ketones Negative (Negative) Urine Occult Blood Negative (Negative) Urine Nitrite Negative (Negative) Urine Bilirubin Negative (Negative) Urine Urobilinogen 0.2 (0.2-1.0) Ur Leukocyte Esterase Negative (Negative) Urine RBC 0-5 (0-5) /hpf Urine WBC 0-5 (0-5) /hpf Ur Squamous Epith Cells 0-5 (0-5) /hpf Urine Bacteria Many H (FEW) /hpf Urine Mucus Not seen (FEW) /hpf Meds: Medications Generic Name Dose Route Start Last Admin Trade Name Freq PRN Reason Stop Dose Admin Sodium Chloride 100 mls @ 60 mls/min 06/28/21 20:15 06/28/21 20:08 Normal Saline IV 60 mls/min ASDIRECTED RAMON Administration Sodium Chloride 10 ml 06/28/21 17:12 06/28/21 20:08 Sodium Chloride 0.9% 10 Ml Syringe FLUSH 10 ml ASDIRECTED PRN Administration Keep Vein Open Discontinued Medications Generic Name Dose Route Start Last Admin Trade Name Rios PRN Reason Stop Dose Admin Iopamidol 100 ml 06/28/21 20:05 06/28/21 20:08 Iopamidol 755 Mg/Ml 100 Ml Bottle IVPUSH 06/28/21 20:06 100 ml ONETIME ONE Administration Sodium Chloride 10 ml 06/28/21 20:05 Sodium Chloride 0.9% 10 Ml Sdv FLUSH 06/28/21 20:06 ONETIME ONE - Re-Assessments/Exams Free Text/Narrative Re-Assessment/Exam: 06/28/21 18:07 Radiologist impression frontal view of the chest: 1. Nothing acute is definitely appreciated on frontal chest x-ray. 2. No change from previous study is seen. 06/28/21 18:30 Hematology reveals a WBC of 3.96, hemoglobin 11.7, hematocrit 36.5, platelet count 135 Coagulation reveals a D-dimer of 1.25 Chemistry reveals a sodium of 131, potassium 3.7, anion gap 8.7, BUN 16, creatinine 1.1, glucose 105, magnesium 2.1, troponin less than 0.017, C-reactive protein 9.8 Urinalysis reveals a trace of protein, and many bacteria and is otherwise unremarkable. I have ordered a CT angiogram of the chest to rule out PE. 06/28/21 20:[address] of the chest: 1. No findings of pulmonary embolism. 2. Patchy increased density within both lung bases. This is an interval change from prior chest CT study and could represent mild areas of pneumonia. 3. Other findings believed to be incidental as noted above. 06/28/21 20:46 Patient will be discharged home with no further orders. Her O2 saturations have been greater than 90% on room air during her stay in the emergency department. Departure - Departure Time of Disposition: 20:46 Disposition: Home, Self-Care 01 Condition: Good Clinical Impression: Pneumonia due to COVID-19 virus - Discharge Information Referrals: Vivian Dunham NP [Primary Care Provider] - Forms: ED Department Discharge Additional Instructions: Angie was seen in the emergency department this evening for evaluation of her Covid. Numerous studies were completed which included labs, chest x-ray and a CT scan of her lungs. Labs were essentially unremarkable as well as chest x- ray. CT scan of the lung did not show any blood clots. Her oxygen levels while she was in the emergency department remained above 92% to the entire stay and she was not on oxygen at that time. She did receive the monoclonal antibody treatment on prior emergency department visit. This will likely take a couple of days to kick in. Recommend plenty of rest and plenty of fluids. May take Tylenol or ibuprofen for fever or body aches. Do not hesitate returning to the emergency department. Sepsis Event Note (ED) - Evaluation Sepsis Screening Result: No Definite Risk - Focused Exam Vital Signs: Vital Signs Temp Pulse Resp BP Pulse Ox 06/28/21 16:37 97.1 F 74 28 H 100/70 95 - My Orders Last 24 Hours: My Active Orders 06/28/21 17:12 Sodium Chloride 0.9% [Saline Flush] 10 ml FLUSH ASDIRECTED PRN Saline Lock Insert [OM.PC] Stat 06/28/21 20:15 Sodium Chloride 0.9% [Normal Saline] 100 ml IV ASDIRECTED - Assessment/Plan Last 24 Hours: My Active Orders 06/28/21 17:12 Sodium Chloride 0.9% [Saline Flush] 10 ml FLUSH ASDIRECTED PRN Saline Lock Insert [OM.PC] Stat 06/28/21 20:15 Sodium Chloride 0.9% [Normal Saline] 100 ml IV ASDIRECTED
--- NOTE | 2021-06-28 18:03 | CR ---
Chest: Frontal view of the chest was obtained. Comparison: Prior chest x-ray of 06/26/21. Lungs show no definite acute parenchymal change. Findings are similar to prior study within both sides of the chest. Heart size and mediastinum are within normal limits. Small azygos lobe is noted. Bony structures are osteopenic. No acute osseous finding is seen. Impression: 1. Nothing acute is definitely appreciated on frontal chest x-ray. 2. No change from previous study is seen. Diagnostic code #2
[2021-06-28] MEDS ORDERED: Iopamidol 755 Mg/ML 100 ML Bottle IVPUSH ONE (20:05)
[2021-06-28] MEDS ORDERED: Sodium Chloride 0.9% 10 ML SDV FLUSH ONE (20:05)
[2021-06-28] MEDS ORDERED: Sodium Chloride 0.9% 100 ML IV SCH (20:15)
--- NOTE | 2021-06-28 20:19 | CT ---
CT chest Technique: Multiple axial sections through the chest were obtained. Intravenous contrast was utilized. Study has been performed as a pulmonary angiogram protocol. Comparison: Prior CT chest study of 04/23/19. Findings: Pulmonary arteries are well opacified. No filling defects are seen to indicate pulmonary embolism. Thoracic aorta shows no aneurysm. Slight atherosclerotic change is seen within the thoracic aorta. Mediastinum shows no adenopathy. No axillary adenopathy is seen. No pericardial thickening is seen. Small hiatal hernia is noted. Small cyst is noted off the right kidney. Lung window settings were obtained. Patchy increased density is seen within both lung bases, worse on the left side. Lungs otherwise are clear. Azygos lobe is incidentally noted. Bone window settings were reviewed. Scattered degenerative change is seen throughout the spine. No acute osseous abnormality is appreciated. Impression: 1. No findings of pulmonary embolism. 2. Patchy increased density within both lung bases. This is an interval change from prior chest CT study and could represent mild areas of pneumonia. 3. Other findings believed to be incidental as noted above. Diagnostic code #3
== END 2021-06-28 22:27 | disposition home or self-care (01) ==
LOC: JD.ED 16:37
DX: U07.1 COVID-19 (principal); J12.82 Pneumonia due to coronavirus disease 2019; K21.9 Gastro-esophageal reflux disease without esophagitis; G30.9 Alzheimer's disease, unspecified; F02.80 Dementia in other diseases classified elsewhere, unspecified severity, without behavioral disturbance, psychotic disturbance, mood disturbance, and anxiety; Z79.899 Other long term (current) drug therapy
CPT/HCPCS: 36415; 71045; 71275; 80053; 81001; 83735; 84484; 85025; 85379; 86140; 99285; Q9967

== ENCOUNTER 2022-02-08 15:03 | Emergency (ER) | payer MEDICARE, OTHER ==
[2022-02-08] MEDS ORDERED: Sodium Chloride 0.9% 10 ML Syringe FLUSH PRN (15:43)
[2022-02-08 17:28] VITALS: BP 137/80; PULSE 78
== END 2022-02-08 17:56 | disposition home or self-care (01) ==
LOC: JD.ED 15:03
DX: F03.90 Unspecified dementia, unspecified severity, without behavioral disturbance, psychotic disturbance, mood disturbance, and anxiety (principal); K21.9 Gastro-esophageal reflux disease without esophagitis; Z79.899 Other long term (current) drug therapy
CPT/HCPCS: 36415; 80053; 81001; 83735; 85025; 85379; 86140; 99284; J3490

== ENCOUNTER 2022-02-23 07:53 | Day surgery (SDC) | payer MEDICARE, OTHER ==
[~2022-02-23 07:53] MED LIST changes: +Sodium Chloride 0.9% 10 ML Syringe FLUSH SCH
[2022-02-23] MEDS ORDERED: Propofol 200 MG/20 ML SDV ONE (08:03)
[2022-02-23] MEDS ORDERED: Lidocaine 1% 4 ML ONE (08:04)
[2022-02-23 10:52] VITALS: BP 100/76; PULSE 67
== END 2022-02-23 11:04 | disposition home or self-care (01) ==
LOC: JD.SDS 07:53
PROVIDERS: ATTEND Surgery
DX: K29.50 Unspecified chronic gastritis without bleeding (principal); K21.00 Gastro-esophageal reflux disease with esophagitis, without bleeding; K44.9 Diaphragmatic hernia without obstruction or gangrene; K22.70 Barrett's esophagus without dysplasia; Z98.890 Other specified postprocedural states; Z79.899 Other long term (current) drug therapy; Z87.891 Personal history of nicotine dependence
CPT/HCPCS: J2704; J7120

== ENCOUNTER 2022-05-13 11:32 | Emergency (ER) | payer MEDICARE, OTHER ==
[2022-05-13] MEDS ORDERED: Sodium Chloride 0.9% 1,000 ML IV ONE (13:13)
[2022-05-13] MEDS ORDERED: Sodium Chloride 0.9% 10 ML Syringe FLUSH PRN (13:13)
[2022-05-13 16:01] VITALS: BP 95/74; PULSE 68
== END 2022-05-13 15:45 | disposition home or self-care (01) ==
LOC: JD.ED 11:32
DX: N30.00 Acute cystitis without hematuria (principal); K21.9 Gastro-esophageal reflux disease without esophagitis; Z79.899 Other long term (current) drug therapy
CPT/HCPCS: 36415; 71046; 80053; 81001; 83605; 85007; 85027; 85610; 86140; 87040; 87086; 87088; 87186; 96360; 99283; J3490; J7030; 99284

== ENCOUNTER 2023-02-06 14:57 | Emergency (ER) | payer MEDICARE, OTHER ==
[2023-02-06 16:42] LABS: BASOPHILS ABSOLUTE AUTO 0.01 K/mm3 (0.01-0.08); BASOPHILS PERCENT AUTO 0.2 % (0.1-1.2); EOSINOPHILS ABSOLUTE AUTO 0.03 K/mm3 (0.04-0.36); EOSINOPHILS PERCENT AUTO 0.7 (0.7-5.8); HEMATOCRIT 38.8 % (34.1-44.9); HEMOGLOBIN 11.9 gm/dl (11.2-15.7); IMMATURE GRAN ABSOLUTE AUTO 0.01 K/mm3 (0.00-0.10); IMMATURE GRAN PERCENT AUTO 0.2 % (<=1.0); LYMPHOCYTES ABSOLUTE AUTO 0.84 K/mm3 (1.18-3.74); LYMPHOCYTES PERCENT AUTO 20.8 % (19.3-51.7); MEAN CORPUSCULAR HEMOGLOBIN 25.7 pg (25.6-32.2); MEAN CORPUSCULAR HGB CONC 30.7 g/dl (32.2-35.5); MEAN CORPUSCULAR VOLUME 83.8 fl (79.4-94.8); MEAN PLATELET VOLUME 10.9 fl (9.4-12.3); MONOCYTES ABSOLUTE AUTO 0.44 K/mm3 (0.24-0.36); MONOCYTES PERCENT AUTO 10.9 % (4.7-12.5); NEUTROPHILS ABSOLUTE AUTO 2.71 K/mm3 (1.56-6.13); NEUTROPHILS PERCENT AUTO 67.2 % (34.0-71.1); PLATELET COUNT,PLT 192 K/mm3 (182-369); RED BLOOD CELL COUNT 4.63 M/mm3 (3.98-5.22); WHITE BLOOD CELL COUNT,WBC 4.04 K/mm3 (3.98-10.04)
[2023-02-06 17:03] LABS: A/G RATIO 0.9 (1-2); ALANINE AMINOTRANSFERASE,ALT 20 U/L (14-59); ALBUMIN 2.9 g/dl (3.4-5.0); ALKALINE PHOSPHATASE 127 U/L (46-116); ASPARTATE AMNIOTRANSFERASE,AST 14 U/L (15-37); BILIRUBIN TOTAL 0.7 mg/dL (0.2-1.0); BLOOD UREA NITROGEN,BUN 10 mg/dL (7-18); BUN/CREATININE RATIO 11.1 (14-18); CALCIUM 9.3 mg/dL (8.5-10.1); CARBON DIOXIDE,CO2 29 mEq/L (21-32); CHLORIDE,CL 104 mEq/L (98-107); CREATININE 0.9 mg/dL (0.55-1.02); ESTIMATED GFR 64 mL/min (>60); GLUCOSE RANDOM 94 mg/dL (70-99); PROTEIN TOTAL,TP 6.3 g/dl (6.4-8.2); SODIUM,NA 139 mEq/L (136-145)
[2023-02-06] MEDS ORDERED: Doxycycline Monohydrate 100 MG Cap PO ONE (18:25)
[2023-02-06 19:02] VITALS: BP 146/107; PULSE 78
== END 2023-02-06 18:55 | disposition home or self-care (01) ==
LOC: JD.ED 14:57
DX: J40 Bronchitis, not specified as acute or chronic (principal); K21.9 Gastro-esophageal reflux disease without esophagitis; Z86.16 Personal history of COVID-19; Z79.899 Other long term (current) drug therapy
CPT/HCPCS: 36415; 71045; 80053; 85025; 99283; A9270

== ENCOUNTER 2023-06-12 14:32 | Emergency (ER) | payer MEDICARE, OTHER ==
[2023-06-12] MEDS ORDERED: Sodium Chloride 0.9% 1,000 ML IV SCH (15:45)
[2023-06-12 16:06] LABS: BASOPHILS PERCENT AUTO 0.2 % (0.0-1.0); EOSINOPHILS PERCENT AUTO 0.3 % (0.0-6.0); HEMATOCRIT 39.7 % (37.0-47.0); IMMATURE GRAN ABSOLUTE AUTO 0.01 K/mm3 (0.00-0.05); IMMATURE GRAN PERCENT AUTO 0.2 % (0.0-0.4); LYMPHOCYTES ABSOLUTE AUTO 0.8 K/mm3 (1.0-4.8); LYMPHOCYTES PERCENT AUTO 13.1 % (24.0-44.0); MEAN CORPUSCULAR HEMOGLOBIN 25.6 pg (28.0-32.0); MEAN CORPUSCULAR HGB CONC 30.2 g/dl (32.0-36.0); MEAN CORPUSCULAR VOLUME 84.8 fl (83.0-99.0); MEAN PLATELET VOLUME 10.7 fl (9.4-12.3); MONOCYTES ABSOLUTE AUTO 0.6 K/mm3 (0.0-0.8); NEUTROPHILS ABSOLUTE AUTO 4.4 K/mm3 (1.8-7.7); NEUTROPHILS PERCENT AUTO 76.2 % (41.0-71.0); PLATELET COUNT,PLT 165 K/mm3 (150-400); RED BLOOD CELL COUNT 4.68 M/mm3 (4.10-5.30); WHITE BLOOD CELL COUNT,WBC 5.79 K/mm3 (3.9-11.3)
[2023-06-12 16:29] LABS: A/G RATIO 0.8 (1-2); ALBUMIN 3.1 g/dl (3.4-5.0); ANION GAP 12.3 (5-15); BILIRUBIN TOTAL 0.9 mg/dL (0.2-1.0); EST CRCL DRUG DOSING (CG) 37.45 mL/min; POTASSIUM,K 4.3 mEq/L (3.5-5.1); PROTEIN TOTAL,TP 6.8 g/dl (6.4-8.2)
[2023-06-12 16:32] LABS: APPEARANCE,URINE CLEAR (Clear); BILIRUBIN,URINE NEGATIVE (Negative); COLOR,URINE DARK YELLOW (Yellow); GLUCOSE,URINE NEGATIVE (Negative); KETONES,URINE NEGATIVE (Negative); LEUKOCYTE ESTERASE,URINE NEGATIVE (Negative); NITRITE,URINE NEGATIVE (Negative); OCCULT BLOOD,URINE NEGATIVE (Negative); PROTEIN,URINE 1+ (Negative)
[2023-06-12 16:50] LABS: BACTERIA,URINE MODERATE /hpf (FEW); MUCUS,URINE MODERATE /hpf (FEW); RBC,URINE 0-5 /hpf (0-5); SQUAMOUS EPITHELIAL CELLS,UR 0-5 /hpf (0-5); WBC,URINE 0-5 /hpf (0-5)
[2023-06-12 17:46] VITALS: BP 122/71; PULSE 59
== END 2023-06-12 17:45 | disposition home or self-care (01) ==
LOC: JD.ED 14:32
DX: F03.90 Unspecified dementia, unspecified severity, without behavioral disturbance, psychotic disturbance, mood disturbance, and anxiety (principal); R53.1 Weakness; K21.9 Gastro-esophageal reflux disease without esophagitis; Z87.891 Personal history of nicotine dependence; Z86.16 Personal history of COVID-19; Z79.899 Other long term (current) drug therapy
CPT/HCPCS: 36415; 71045; 80053; 81001; 85025; 86140; 96360; 99285; J7030; 99283

== ENCOUNTER 2023-12-13 12:05 | Inpatient (IN) | payer MEDICARE, OTHER ==
[2023-12-13 12:51] LABS: BASE EXCESS ARTERIAL 7.1 (-2-2.0); BICARBONATE,ARTERIAL 31.9 meq/L (22.0-26.0); PCO2 ARTERIAL 48.4 mmHg (35.0-45.0)
[2023-12-13] MEDS: Sodium Chloride 0.9% 10 ML Syringe FLUSH PRN (13:51)
[2023-12-13] MEDS: Sodium Chloride 0.9% 1,000 ML IV STA (13:51)
[2023-12-13 13:56] LABS: HEMATOCRIT 35.8 % (37.0-47.0); HEMOGLOBIN 10.6 gm/dl (12.0-16.0); MEAN CORPUSCULAR HEMOGLOBIN 25.4 pg (28.0-32.0); MEAN CORPUSCULAR HGB CONC 29.6 g/dl (32.0-36.0); MEAN CORPUSCULAR VOLUME 85.6 fl (83.0-99.0); MEAN PLATELET VOLUME 10.6 fl (9.4-12.3); PLATELET COUNT,PLT 153 K/mm3 (150-400); RED BLOOD CELL COUNT 4.18 M/mm3 (4.10-5.30); WHITE BLOOD CELL COUNT,WBC 5.38 K/mm3 (3.9-11.3)
[2023-12-13 14:04] LABS: PROTHROMBIN TIME 10.7 SECONDS (9.7-12.0)
[2023-12-13 14:26] LABS: LACTIC ACID 0.4 mmol/L (0.4-2.0)
[2023-12-13 14:30] LABS: A/G RATIO 0.7 (1-2); ALBUMIN 2.5 g/dl (3.4-5.0); BILIRUBIN TOTAL 1.1 mg/dL (0.2-1.0); C-REACTIVE PROTEIN 2.72 mg/dL (<0.30); CREATININE 0.8 mg/dL (0.55-1.02); EST CRCL DRUG DOSING (CG) 30.52 mL/min; PROTEIN TOTAL,TP 6.2 g/dl (6.4-8.2)
[2023-12-13 14:34] LABS: CALCIUM 9.1 mg/dL (8.5-10.1)
[2023-12-13 14:48] LABS: ANION GAP 10.7 (5-15); POTASSIUM,K 2.7 mEq/L (3.5-5.1)
[2023-12-13 14:52] LABS: APPEARANCE,URINE CLEAR (Clear); BILIRUBIN,URINE NEGATIVE (Negative); COLOR,URINE AMBER (Yellow); GLUCOSE,URINE NEGATIVE (Negative); KETONES,URINE TRACE (Negative); LEUKOCYTE ESTERASE,URINE NEGATIVE (Negative); NITRITE,URINE NEGATIVE (Negative); OCCULT BLOOD,URINE NEGATIVE (Negative); PROTEIN,URINE 1+ (Negative)
[2023-12-13 15:02] LABS: BAND PERCENT MAN 0 % (0-10); BASOPHILS PERCENT MAN 0 (0.1-1.2); EOSINOPHILS PERCENT MAN 1 % (0.7-5.8); LYMPHOCYTES % ATYPICAL MANUAL 0 %; LYMPHOCYTES PERCENT MAN 18 % (20-40); MONOCYTES PERCENT MAN 0 % (2-10)
[2023-12-13 15:03] LABS: MICROCYTOSIS 1+ SLIGHT
[2023-12-13 15:04] LABS: ANISOCYTOSIS 1+ SLIGHT; PLATELET COUNT ESTIMATE DECREASED
[2023-12-13 15:34] LABS: BACTERIA,URINE MODERATE /hpf (FEW); MUCUS,URINE FEW /hpf (FEW); RBC,URINE 0-5 /hpf (0-5); SQUAMOUS EPITHELIAL CELLS,UR 0-5 /hpf (0-5); WBC,URINE 0-5 /hpf (0-5)
[2023-12-13] MEDS: Potassium Chloride 10 MEQ in Premix Bag 1 BAG IV SCH (16:56)
[2023-12-13] MEDS ORDERED: Ondansetron 4 MG/2 ML SDV IV PRN (17:31)
[2023-12-13] MEDS ORDERED: Acetaminophen 650 MG Supp RECTAL PRN (17:31)
[2023-12-13] MEDS ORDERED: Ampicillin/Sulbactam Na 3 GM in Sodium Chloride 0.9% 100 ML IV SCH (17:45)
[2023-12-13] MEDS ORDERED: Heparin Sodium 5,000 Units/ML Vial SUBCUT SCH (17:45)
[2023-12-13] MEDS: cefTRIAXone 2 GM in Sodium Chloride 0.9% 100 ML IV ONE (18:34)
[2023-12-13] MEDS: Heparin Sodium 5,000 Units/ML Vial SUBCUT SCH (18:35)
[2023-12-13] MEDS: Ampicillin/Sulbactam Na 3 GM in Sodium Chloride 0.9% 100 ML IV SCH (19:39)
[2023-12-14] MEDS: Dextrose 5%-0.45% NaCl 1,000 ML IV SCH (01:00)
[2023-12-14 05:03] LABS: BASOPHILS PERCENT AUTO 0.3 % (0.0-1.0); EOSINOPHILS ABSOLUTE AUTO 0.1 K/mm3 (0.0-0.4); EOSINOPHILS PERCENT AUTO 1.5 % (0.0-6.0); HEMOGLOBIN 9.7 gm/dl (12.0-16.0); LYMPHOCYTES ABSOLUTE AUTO 0.8 K/mm3 (1.0-4.8); LYMPHOCYTES PERCENT AUTO 22.8 % (24.0-44.0); MEAN CORPUSCULAR HEMOGLOBIN 25.3 pg (28.0-32.0); MEAN CORPUSCULAR HGB CONC 29.4 g/dl (32.0-36.0); MEAN CORPUSCULAR VOLUME 85.9 fl (83.0-99.0); MEAN PLATELET VOLUME 10.6 fl (9.4-12.3); MONOCYTES ABSOLUTE AUTO 0.4 K/mm3 (0.0-0.8); MONOCYTES PERCENT AUTO 11.6 % (0.0-8.0); NEUTROPHILS ABSOLUTE AUTO 2.2 K/mm3 (1.8-7.7); NEUTROPHILS PERCENT AUTO 63.8 % (41.0-71.0); PLATELET COUNT,PLT 132 K/mm3 (150-400); RED BLOOD CELL COUNT 3.84 M/mm3 (4.10-5.30); WHITE BLOOD CELL COUNT,WBC 3.37 K/mm3 (3.9-11.3)
[2023-12-14 05:22] LABS: ANION GAP 7.1 (5-15); BUN/CREATININE RATIO 8.8 (14-18); CALCIUM 8.5 mg/dL (8.5-10.1); CREATININE 0.8 mg/dL (0.55-1.02); EST CRCL DRUG DOSING (CG) 34.8 mL/min; POTASSIUM,K 3.1 mEq/L (3.5-5.1)
[2023-12-14] MEDS: Potassium Chloride 10 MEQ in Premix Bag 1 BAG IV SCH (07:37)
[2023-12-15 08:36] LABS: BASOPHILS PERCENT AUTO 0.4 % (0.0-1.0); EOSINOPHILS ABSOLUTE AUTO 0.1 K/mm3 (0.0-0.4); EOSINOPHILS PERCENT AUTO 4.6 % (0.0-6.0); HEMATOCRIT 33.6 % (37.0-47.0); LYMPHOCYTES ABSOLUTE AUTO 0.7 K/mm3 (1.0-4.8); LYMPHOCYTES PERCENT AUTO 23.3 % (24.0-44.0); MEAN CORPUSCULAR HEMOGLOBIN 25.6 pg (28.0-32.0); MEAN CORPUSCULAR HGB CONC 29.8 g/dl (32.0-36.0); MEAN CORPUSCULAR VOLUME 85.9 fl (83.0-99.0); MEAN PLATELET VOLUME 10.1 fl (9.4-12.3); MONOCYTES ABSOLUTE AUTO 0.3 K/mm3 (0.0-0.8); NEUTROPHILS ABSOLUTE AUTO 1.7 K/mm3 (1.8-7.7); NEUTROPHILS PERCENT AUTO 60.7 % (41.0-71.0); PLATELET COUNT,PLT 139 K/mm3 (150-400); RED BLOOD CELL COUNT 3.91 M/mm3 (4.10-5.30); WHITE BLOOD CELL COUNT,WBC 2.83 K/mm3 (3.9-11.3)
[2023-12-15 08:52] LABS: ANION GAP 7.4 (5-15); BUN/CREATININE RATIO 3.8 (14-18); CALCIUM 8.7 mg/dL (8.5-10.1); CREATININE 0.8 mg/dL (0.55-1.02); EST CRCL DRUG DOSING (CG) 35.94 mL/min; POTASSIUM,K 3.4 mEq/L (3.5-5.1)
[2023-12-18] MEDS: Scopalamine 1mg/3day Transdermal Patch TRDERM PRN (06:14)
[2023-12-18 11:14] VITALS: BP 121/64; PULSE 96
== END 2023-12-18 11:31 | disposition hospice, home (50) | DRG 178 ==
LOC: JD.ED 12:05 → JD.MS 17:44
PROVIDERS: ADMIT Hospitalist; ATTEND Internal Medicine
DX: R41.82 Altered mental status, unspecified (principal); F03.90 Unspecified dementia, unspecified severity, without behavioral disturbance, psychotic disturbance, mood disturbance, and anxiety; J69.0 Pneumonitis due to inhalation of food and vomit; R62.51 Failure to thrive (child); N17.9 Acute kidney failure, unspecified; J18.9 Pneumonia, unspecified organism; Z66 Do not resuscitate; G30.9 Alzheimer's disease, unspecified; E87.6 Hypokalemia; F02.C0 Dementia in other diseases classified elsewhere, severe, without behavioral disturbance, psychotic disturbance, mood disturbance, and anxiety; K21.9 Gastro-esophageal reflux disease without esophagitis; R62.7 Adult failure to thrive; J40 Bronchitis, not specified as acute or chronic; K59.09 Other constipation; Z86.16 Personal history of COVID-19; Z79.899 Other long term (current) drug therapy
CPT/HCPCS: 36415; 36600; 71045; 71250; 80053; 81001; 82803; 83605; 83880; 84484; 85007; 85027; 85610; 86140; 87040 ×2; 93005; C1758; J3480; J3490; J7030; 80048; 82947; 85025; 92610-GN; 93010; 94762; 99223; 99231; 99232; 99233; 99239; 99285; A9270-GY; J0295; J0696; J1644; J7042